=== PATIENT | female | born 1965 | race Two or more races ===

== ENCOUNTER 2020-07-06 11:59 | Emergency (ER) | payer MEDICAID, OTHER ==
[~2020-07-06] VITALS: Ht 160 cm; Wt 72.6 kg
[2020-07-06] MEDS ORDERED: ACETAMINOPHEN 325 MG TAB PO ONE (12:45)
[2020-07-06 13:52] LABS: Basophils # (auto) 0.1 10 ^3/uL (0-0.2); Basophils % (auto) 0.6 % (0.0-2.0); Eosinophils # (auto) 0.2 10 ^3/uL (0-0.8); Eosinophils % (auto) 1.8 % (0.0-7.0); Hematocrit 35.8 % (36.0-46.0); Lymphocytes # (auto) 1.8 10 ^3/uL (0.4-5.4); Lymphocytes % (auto) 21.5 % (10.0-50.0); Mean Corpuscular Hemoglobin 30.5 pg (28.0-32.0); Mean Corpuscular Hgb Conc. 33.4 g/dL (32.0-36.0); Mean Corpuscular Volume 91.3 fL (80.0-100.0); Monocytes # (auto) 0.8 10 ^3/uL (0-1.3); Monocytes % (auto) 9.8 % (0.0-12.0); Neutrophils # (auto) 5.6 10 ^3/uL (1.6-8.6); Neutrophils % (auto) 66.3 % (37.0-80.0); Nucleated Red Blood Cells % 0.1 %; Platelet Count (auto) 279 10^3/uL (140-450); Red Blood Cells 3.92 10^6/uL (4.0-5.20); Red Cell Distribution Width 14.4 % (11.8-14.3); White Blood Cell 8.4 10^3/uL (4.4-10.8)
[2020-07-06 14:15] LABS: Albumin 1.6 g/dL (3.4-5.0); Calcium 8.4 mg/dL (8.5-10.1); Magnesium 2.2 mg/dL (1.6-2.6); Potassium 3.5 mmol/L (3.5-5.1)
[2020-07-06 14:17] LABS: INR 0.99 (0.9-1.15); Partial Thromboplastin Time 31.7 sec (23.0-31.2)
[2020-07-06 14:23] LABS: BUN/Creatinine Ratio 23.4; Bilirubin, Total 0.2 mg/dL (0.2-1.0); Total Protein 7.1 g/dL (6.4-8.2)
[2020-07-06 16:23] VITALS: BP 171/67
== END 2020-07-06 16:34 | disposition short-term general hospital (02) ==
LOC: ER 11:59
DX: I60.8 Other nontraumatic subarachnoid hemorrhage (principal); I61.5 Nontraumatic intracerebral hemorrhage, intraventricular; S09.90XA Unspecified injury of head, initial encounter; S82.831A Other fracture of upper and lower end of right fibula, initial encounter for closed fracture; S53.401A Unspecified sprain of right elbow, initial encounter; E11.9 Type 2 diabetes mellitus without complications; I10 Essential (primary) hypertension; Z87.891 Personal history of nicotine dependence; X58.XXXA Exposure to other specified factors, initial encounter; Y93.89 Activity, other specified; Y92.89 Other specified places as the place of occurrence of the external cause; Y99.8 Other external cause status
CPT/HCPCS: 36415; 70450; 71045; 73060; 73080; 73610; 73630; 80053; 83735; 84484; 85025; 85610; 85730; 93005; 99291

== ENCOUNTER 2021-07-28 17:00 | Inpatient (IN) | payer MEDICAID ==
[~2021-07-28] VITALS: Ht 157.5 cm; Wt 88.3 kg
[2021-07-28] MEDS ORDERED: DEXTROSE (50%) 50ML SYRG IV ONE (17:30)
[2021-07-28 18:42] LABS: Basophils # (auto) 0 10 ^3/uL (0-0.2); Basophils % (auto) 0.6 % (0.0-2.0); Eosinophils # (auto) 0 10 ^3/uL (0-0.8); Eosinophils % (auto) 0.2 % (0.0-7.0); Hematocrit 37.2 % (36.0-46.0); Hemoglobin 12.2 g/dL (12.2-16.2); Lymphocytes # (auto) 0.8 10 ^3/uL (0.4-5.4); Lymphocytes % (auto) 12.9 % (10.0-50.0); Mean Corpuscular Hemoglobin 30.1 pg (28.0-32.0); Mean Corpuscular Hgb Conc. 32.7 g/dL (32.0-36.0); Mean Corpuscular Volume 91.9 fL (80.0-100.0); Monocytes # (auto) 0.2 10 ^3/uL (0-1.3); Monocytes % (auto) 3.2 % (0.0-12.0); Neutrophils # (auto) 5.3 10 ^3/uL (1.6-8.6); Neutrophils % (auto) 83.1 % (37.0-80.0); Red Blood Cells 4.05 10^6/uL (4.0-5.20); White Blood Cell 6.4 10^3/uL (4.4-10.8)
[2021-07-28 18:53] LABS: Albumin 2.1 g/dL (3.4-5.0); Calcium 8.1 mg/dL (8.5-10.1); Potassium 3.9 mmol/L (3.5-5.1)
[2021-07-28 18:57] LABS: BUN/Creatinine Ratio 10.3; Bilirubin, Total 0.2 mg/dL (0.2-1.0)
[2021-07-28 19:05] LABS: Urine Bacteria FEW /hpf (None Seen); Urine Blood 1+ /uL (Negative); Urine Hyaline Cast FEW /lpf (0 - 2); Urine Mucus FEW (None Seen); Urine WBC 5 /hpf (0 - 5)
[2021-07-28] MEDS ORDERED: cloNIDine HCL 0.1 MG TAB PO ONE (19:30)
[2021-07-28] MEDS ORDERED: NITROGLYCERIN 0.4 MG SL TAB SL PRN (21:45)
[2021-07-28] MEDS ORDERED: DEXTROSE (50%) 50ML SYRG IV PRN (21:45)
[2021-07-28] MEDS ORDERED: TEMAZEPAM 15 MG CAP PO PRN (21:45)
[2021-07-28] MEDS ORDERED: MORPHINE SULFATE INJECTION 2 MG/ML SYRG IV PRN (21:45)
[2021-07-28] MEDS ORDERED: cefTRIAXone 1GM/50ML D5W 50 ML IV ONE (21:45)
[2021-07-28] MEDS ORDERED: ATORVASTATIN 20 MG TAB PO ONE (21:45)
[2021-07-28] MEDS ORDERED: DEXTROSE 10% 1,000 ML IV ONE ×3 (22:00→22:15)
[2021-07-28] MEDS: ATORVASTATIN 20 MG TAB PO SCH (22:23)
[2021-07-28 22:50] VITALS: BP 208/74
[2021-07-29] VITALS (7 sets, daily range): BP systolic 144–207; BP diastolic 60–85
[2021-07-29] MEDS: cloNIDine HCL 0.1 MG TAB PO PRN ×2 (00:23→12:21)
[2021-07-29] MEDS: ACCU-CHEK COMFORT CURVE STRIP VI SCH ×5 (00:34→16:11)
[2021-07-29] MEDS: InsuLIN REG 1unit/0.01ml Soln (100units/ml) SC SCH ×6 (03:44→20:21)
[2021-07-29 05:35] LABS: Albumin 1.6 g/dL (3.4-5.0); BUN/Creatinine Ratio 10.8; Calcium 7.9 mg/dL (8.5-10.1); Potassium 3.6 mmol/L (3.5-5.1)
[2021-07-29 05:38] LABS: Bilirubin, Total 0.1 mg/dL (0.2-1.0); Total Protein 5.4 g/dL (6.4-8.2)
[2021-07-29 05:43] LABS: Basophils # (auto) 0.1 10 ^3/uL (0-0.2); Basophils % (auto) 0.8 % (0.0-2.0); Eosinophils # (auto) 0.2 10 ^3/uL (0-0.8); Eosinophils % (auto) 2.5 % (0.0-7.0); Hematocrit 30.1 % (36.0-46.0); Hemoglobin 10.1 g/dL (12.2-16.2); Lymphocytes # (auto) 2.2 10 ^3/uL (0.4-5.4); Mean Corpuscular Hemoglobin 30.7 pg (28.0-32.0); Mean Corpuscular Hgb Conc. 33.5 g/dL (32.0-36.0); Mean Corpuscular Volume 91.6 fL (80.0-100.0); Monocytes # (auto) 0.4 10 ^3/uL (0-1.3); Monocytes % (auto) 7.1 % (0.0-12.0); Neutrophils # (auto) 3.3 10 ^3/uL (1.6-8.6); Neutrophils % (auto) 53.6 % (37.0-80.0); Nucleated Red Blood Cells % 0.1 %; Red Blood Cells 3.29 10^6/uL (4.0-5.20); Red Cell Distribution Width 14.5 % (11.8-14.3); White Blood Cell 6.2 10^3/uL (4.4-10.8)
[2021-07-29] MEDS: cefTRIAXone 1GM/50ML D5W 50 ML IV SCH (09:07)
[2021-07-29] MEDS: ASPirin 81 mg TAB PO SCH (09:08)
[2021-07-29] MEDS: METOPROLOL SUCCINATE XL 50 MG TAB PO SCH (09:09)
[2021-07-29] MEDS: ENOXAPARIN SOD 30 MG/0.3 ML SYRINGE SC SCH (09:10)
[2021-07-29] MEDS ORDERED: amLODIPine BESYLATE 5 MG TAB PO SCH (10:00)
[2021-07-29] MEDS ORDERED: hydrALAZINE HCL 25 MG TAB PO SCH (10:00)
[2021-07-29] MEDS ORDERED: ENOXAPARIN SOD 40 MG/0.4 ML SYRINGE SC SCH (10:00)
[2021-07-29] MEDS ORDERED: LOSARTAN POTASSIUM 50 MG TAB PO SCH (10:00)
[2021-07-29] MEDS ORDERED: INSU1INJ19 SC (15:43)
[2021-07-29] MEDS ORDERED: LOSA-39 PO (15:47)
[2021-07-29] MEDS ORDERED: METO-289 PO (15:47)
[2021-07-29] MEDS ORDERED: ATOR20TA PO (15:47)
[2021-07-29] MEDS ORDERED: GLIP10TA9 PO (15:47)
[2021-07-29] MEDS ORDERED: CLON0.1T PO (15:47)
[2021-07-29] MEDS ORDERED: ASPI81CH49 PO (15:47)
[2021-07-29] MEDS: hydrALAZINE HCL 25 MG TAB PO SCH ×2 (16:27→22:59)
[2021-07-29] MEDS: amLODIPine BESYLATE 5 MG TAB PO SCH (16:27)
[2021-07-29] MEDS: SODIUM BICARBONATE 50ML VIAL 50 ML in SOD CHL 0.45% 1,000 ML IV SCH (18:00)
[2021-07-29] MEDS: ATORVASTATIN 20 MG TAB PO SCH (22:59)
[2021-07-30] MEDS: ACCU-CHEK COMFORT CURVE STRIP VI SCH ×7 (01:39→20:11)
[2021-07-30] MEDS: SODIUM BICARBONATE 50ML VIAL 50 ML in SOD CHL 0.45% 1,000 ML IV SCH ×2 (02:08→13:03)
[2021-07-30] MEDS: InsuLIN REG 1unit/0.01ml Soln (100units/ml) SC SCH ×6 (04:00→20:24)
[2021-07-30 05:07] VITALS: BP 148/66
[2021-07-30] MEDS: hydrALAZINE HCL 25 MG TAB PO SCH ×3 (06:12→22:27)
[2021-07-30] MEDS ORDERED: ADENOSINE 61 MG in GIVE UN-DILUTED 0 ML IV STA (07:51)
[2021-07-30] MEDS: cefTRIAXone 1GM/50ML D5W 50 ML IV SCH (08:12)
[2021-07-30] MEDS: amLODIPine BESYLATE 5 MG TAB PO SCH (08:12)
[2021-07-30] MEDS: METOPROLOL SUCCINATE XL 50 MG TAB PO SCH (08:12)
[2021-07-30] MEDS: ASPirin 81 mg TAB PO SCH (08:12)
[2021-07-30] MEDS: ENOXAPARIN SOD 30 MG/0.3 ML SYRINGE SC SCH (08:12)
[2021-07-30 08:48] VITALS: BP 136/71
[2021-07-30 09:00] VITALS: BP 149/77
[2021-07-30] MEDS: ERGOCALCIFEROL 50,000 UNIT(1.25MG) CAP PO SCH ×2 (11:30→15:29)
[2021-07-30 11:45] LABS: Potassium 3.6 mmol/L (3.5-5.1)
[2021-07-30 11:51] LABS: BUN/Creatinine Ratio 10.2; Calcium 8.1 mg/dL (8.5-10.1)
[2021-07-30 13:00] VITALS: BP 174/82
[2021-07-30] MEDS: cloNIDine HCL 0.1 MG TAB PO PRN ×2 (16:01→20:31)
[2021-07-30 16:55] VITALS: BP 185/70
[2021-07-30 22:00] VITALS: BP 182/62
[2021-07-30] MEDS: ATORVASTATIN 20 MG TAB PO SCH (22:27)
[2021-07-31] MEDS: ACCU-CHEK COMFORT CURVE STRIP VI SCH ×6 (00:24→20:17)
[2021-07-31] MEDS: InsuLIN REG 1unit/0.01ml Soln (100units/ml) SC SCH ×6 (00:25→20:18)
[2021-07-31] MEDS: SODIUM BICARBONATE 50ML VIAL 50 ML in SOD CHL 0.45% 1,000 ML IV SCH ×3 (04:04→20:17)
[2021-07-31 05:00] VITALS: BP 132/57
[2021-07-31 06:03] LABS: Potassium 4.2 mmol/L (3.5-5.1)
[2021-07-31] MEDS: hydrALAZINE HCL 25 MG TAB PO SCH ×3 (06:03→21:59)
[2021-07-31 06:14] LABS: BUN/Creatinine Ratio 12.2; Calcium 7.6 mg/dL (8.5-10.1)
[2021-07-31] MEDS: cefTRIAXone 1GM/50ML D5W 50 ML IV SCH (08:28)
[2021-07-31 09:00] VITALS: BP 110/71
[2021-07-31] MEDS: ASPirin 81 mg TAB PO SCH (09:57)
[2021-07-31] MEDS: amLODIPine BESYLATE 5 MG TAB PO SCH (09:58)
[2021-07-31] MEDS: METOPROLOL SUCCINATE XL 50 MG TAB PO SCH (09:58)
[2021-07-31] MEDS: ENOXAPARIN SOD 30 MG/0.3 ML SYRINGE SC SCH (09:58)
[2021-07-31] MEDS: cloNIDine HCL 0.1 MG TAB PO PRN (11:37)
[2021-07-31 12:38] VITALS: BP 162/71
[2021-07-31 17:00] VITALS: BP 146/69
[2021-07-31 22:00] VITALS: BP 149/74
[2021-07-31] MEDS: ATORVASTATIN 20 MG TAB PO SCH (22:00)
[2021-08-01] MEDS: ACCU-CHEK COMFORT CURVE STRIP VI SCH ×6 (00:07→20:01)
[2021-08-01] MEDS: InsuLIN REG 1unit/0.01ml Soln (100units/ml) SC SCH ×6 (03:58→20:03)
[2021-08-01 04:55] VITALS: BP 155/67
[2021-08-01] MEDS: hydrALAZINE HCL 25 MG TAB PO SCH ×3 (05:47→21:55)
[2021-08-01] MEDS: ACETAMINOPHEN 325 MG TAB PO PRN (06:13)
[2021-08-01 06:23] LABS: Potassium 3.7 mmol/L (3.5-5.1)
[2021-08-01 06:35] LABS: BUN/Creatinine Ratio 11.3
[2021-08-01] MEDS: SODIUM BICARBONATE 50ML VIAL 50 ML in SOD CHL 0.45% 1,000 ML IV SCH ×2 (06:47→17:28)
[2021-08-01 09:00] VITALS: BP 160/69
[2021-08-01] MEDS: amLODIPine BESYLATE 5 MG TAB PO SCH (09:26)
[2021-08-01] MEDS: METOPROLOL SUCCINATE XL 50 MG TAB PO SCH (09:26)
[2021-08-01] MEDS: cefTRIAXone 1GM/50ML D5W 50 ML IV SCH (09:26)
[2021-08-01] MEDS: ASPirin 81 mg TAB PO SCH (09:26)
[2021-08-01] MEDS: ENOXAPARIN SOD 30 MG/0.3 ML SYRINGE SC SCH (09:27)
[2021-08-01 13:00] VITALS: BP 162/81
[2021-08-01 17:00] VITALS: BP 158/69
[2021-08-01] MEDS: ONDANSETRON HCL 4 MG/2 ML VIAL IV PRN (18:08)
[2021-08-01] MEDS: ATORVASTATIN 20 MG TAB PO SCH (21:55)
[2021-08-01 22:00] VITALS: BP 163/74
[2021-08-02] MEDS: InsuLIN REG 1unit/0.01ml Soln (100units/ml) SC SCH ×7 (04:00→23:32)
[2021-08-02] MEDS: ACCU-CHEK COMFORT CURVE STRIP VI SCH ×7 (04:08→23:23)
[2021-08-02] MEDS: SODIUM BICARBONATE 50ML VIAL 50 ML in SOD CHL 0.45% 1,000 ML IV SCH ×2 (04:08→13:56)
[2021-08-02 04:55] VITALS: BP 160/74
[2021-08-02] MEDS: ONDANSETRON HCL 4 MG/2 ML VIAL IV PRN (05:24)
[2021-08-02] MEDS: hydrALAZINE HCL 25 MG TAB PO SCH ×3 (05:48→21:58)
[2021-08-02 06:06] LABS: BUN/Creatinine Ratio 9.8; Calcium 7.9 mg/dL (8.5-10.1); Potassium 3.6 mmol/L (3.5-5.1)
[2021-08-02] MEDS: cefTRIAXone 1GM/50ML D5W 50 ML IV SCH (07:57)
[2021-08-02 08:39] VITALS: BP 162/64
[2021-08-02] MEDS ORDERED: ONDANSETRON HCL 4 MG/2 ML VIAL IV ONE (09:15)
[2021-08-02] MEDS: ASPirin 81 mg TAB PO SCH ×2 (10:00→10:22)
[2021-08-02] MEDS: amLODIPine BESYLATE 5 MG TAB PO SCH (10:22)
[2021-08-02] MEDS: PANTOPRAZOLE 40 MG/10 ML VIAL INJ IV SCH ×2 (10:22→21:58)
[2021-08-02] MEDS: ALPRAZolam 0.5 MG TAB PO SCH ×3 (10:23→21:58)
[2021-08-02] MEDS: ENOXAPARIN SOD 30 MG/0.3 ML SYRINGE SC SCH (10:23)
[2021-08-02] MEDS: METOPROLOL SUCCINATE XL 50 MG TAB PO SCH (10:23)
[2021-08-02 12:29] VITALS: BP 154/70
[2021-08-02 16:47] VITALS: BP 153/60
[2021-08-02] MEDS: ACETAMINOPHEN 325 MG TAB PO PRN (17:34)
[2021-08-02] MEDS: ATORVASTATIN 20 MG TAB PO SCH (21:58)
[2021-08-02 22:00] VITALS: BP 161/74
[2021-08-03] MEDS: ACCU-CHEK COMFORT CURVE STRIP VI SCH ×6 (03:27→23:24)
[2021-08-03] MEDS: InsuLIN REG 1unit/0.01ml Soln (100units/ml) SC SCH ×6 (03:28→23:25)
[2021-08-03] MEDS: SODIUM BICARBONATE 50ML VIAL 50 ML in SOD CHL 0.45% 1,000 ML IV SCH ×2 (04:38→14:00)
[2021-08-03 05:00] VITALS: BP 143/67
[2021-08-03] MEDS: hydrALAZINE HCL 25 MG TAB PO SCH ×3 (06:23→21:40)
[2021-08-03] MEDS: ALPRAZolam 0.5 MG TAB PO SCH (06:23)
[2021-08-03] MEDS: cefTRIAXone 1GM/50ML D5W 50 ML IV SCH (08:58)
[2021-08-03 09:00] VITALS: BP 147/69
[2021-08-03] MEDS: ASPirin 81 mg TAB PO SCH (10:00)
[2021-08-03] MEDS: ENOXAPARIN SOD 30 MG/0.3 ML SYRINGE SC SCH (10:00)
[2021-08-03] MEDS: METOPROLOL SUCCINATE XL 50 MG TAB PO SCH (10:26)
[2021-08-03] MEDS: amLODIPine BESYLATE 5 MG TAB PO SCH (10:26)
[2021-08-03] MEDS: PANTOPRAZOLE 40 MG/10 ML VIAL INJ IV SCH ×2 (10:27→21:39)
[2021-08-03 10:51] LABS: Calcium 7.7 mg/dL (8.5-10.1); Potassium 3.8 mmol/L (3.5-5.1)
[2021-08-03 10:53] LABS: BUN/Creatinine Ratio 10.1
[2021-08-03] MEDS ORDERED: LIDOCAINE VISCOUS 2% 15ML UD ONE (12:25)
[2021-08-03] MEDS ORDERED: diphenhdrAMINE HCL 50 MG/1 ML VL ONE (12:25)
[2021-08-03] MEDS ORDERED: SODIUM CHLORIDE LOCK 10 ML ONE (12:25)
[2021-08-03 12:33] LABS: INR 1.02 (0.9-1.15); Partial Thromboplastin Time 30.9 sec (23.6-33.0)
[2021-08-03] MEDS: fentaNYL CITRATE 100 MCG/2 ML VL ONE ×2 (13:02→13:05)
[2021-08-03] MEDS: MIDAZOLAM HCL 5 MG/ML-1ML VIAL ONE ×2 (13:02→13:05)
[2021-08-03 17:00] VITALS: BP 136/59
[2021-08-03] MEDS: ACETAMINOPHEN 325 MG TAB PO PRN (18:10)
[2021-08-03] MEDS: SUCRALFATE 1 GM/10 ML ORAL SUSP PO SCH ×2 (18:10→21:40)
[2021-08-03] MEDS: ATORVASTATIN 20 MG TAB PO SCH (21:40)
[2021-08-03 22:00] VITALS: BP 145/64
[2021-08-04] MEDS: SODIUM BICARBONATE 50ML VIAL 50 ML in SOD CHL 0.45% 1,000 ML IV SCH ×3 (01:54→17:46)
[2021-08-04] MEDS: InsuLIN REG 1unit/0.01ml Soln (100units/ml) SC SCH ×6 (03:20→23:56)
[2021-08-04] MEDS: ACCU-CHEK COMFORT CURVE STRIP VI SCH ×6 (03:30→23:56)
[2021-08-04 05:00] VITALS: BP 137/70
[2021-08-04 05:40] LABS: Calcium 7.9 mg/dL (8.5-10.1)
[2021-08-04] MEDS: SUCRALFATE 1 GM/10 ML ORAL SUSP PO SCH ×4 (06:05→21:38)
[2021-08-04] MEDS: hydrALAZINE HCL 25 MG TAB PO SCH ×3 (06:05→21:39)
[2021-08-04 09:00] VITALS: BP 133/82
[2021-08-04] MEDS: cefTRIAXone 1GM/50ML D5W 50 ML IV SCH (09:12)
[2021-08-04] MEDS: PANTOPRAZOLE 40 MG/10 ML VIAL INJ IV SCH ×2 (09:13→21:37)
[2021-08-04] MEDS: ASPirin 81 mg TAB PO SCH (09:13)
[2021-08-04] MEDS: METOPROLOL SUCCINATE XL 50 MG TAB PO SCH (09:14)
[2021-08-04] MEDS: amLODIPine BESYLATE 5 MG TAB PO SCH (09:14)
[2021-08-04] MEDS: ENOXAPARIN SOD 30 MG/0.3 ML SYRINGE SC SCH (09:14)
[2021-08-04 12:38] VITALS: BP 127/59
[2021-08-04 17:03] VITALS: BP 132/50
[2021-08-04] MEDS: CALCIUM ACETATE 667 MG CAP PO SCH (17:46)
[2021-08-04] MEDS: ATORVASTATIN 20 MG TAB PO SCH (21:38)
[2021-08-04 21:53] VITALS: BP 136/67
[2021-08-05] MEDS: SODIUM BICARBONATE 50ML VIAL 50 ML in SOD CHL 0.45% 1,000 ML IV SCH ×2 (00:33→15:13)
[2021-08-05] MEDS: ACCU-CHEK COMFORT CURVE STRIP VI SCH ×6 (03:30→23:36)
[2021-08-05] MEDS: InsuLIN REG 1unit/0.01ml Soln (100units/ml) SC SCH ×6 (03:30→23:36)
[2021-08-05 05:00] VITALS: BP 143/71
[2021-08-05] MEDS: hydrALAZINE HCL 25 MG TAB PO SCH ×3 (05:26→21:41)
[2021-08-05 05:45] LABS: BUN/Creatinine Ratio 8.8; Calcium 7.9 mg/dL (8.5-10.1); Potassium 4.1 mmol/L (3.5-5.1)
[2021-08-05] MEDS ORDERED: HYDROcodone-ACET 5/325MG TAB PO ONE (06:00)
[2021-08-05] MEDS: SUCRALFATE 1 GM/10 ML ORAL SUSP PO SCH ×4 (06:56→21:09)
[2021-08-05] MEDS: CALCIUM ACETATE 667 MG CAP PO SCH ×3 (08:40→17:12)
[2021-08-05] MEDS: amLODIPine BESYLATE 5 MG TAB PO SCH (08:41)
[2021-08-05] MEDS: ASPirin 81 mg TAB PO SCH (08:41)
[2021-08-05] MEDS: METOPROLOL SUCCINATE XL 50 MG TAB PO SCH (08:42)
[2021-08-05] MEDS: ENOXAPARIN SOD 30 MG/0.3 ML SYRINGE SC SCH (08:43)
[2021-08-05] MEDS: PANTOPRAZOLE 40 MG/10 ML VIAL INJ IV SCH ×2 (08:48→21:09)
[2021-08-05] MEDS: cefTRIAXone 1GM/50ML D5W 50 ML IV SCH (08:48)
[2021-08-05 09:00] VITALS: BP 152/63
[2021-08-05 13:00] VITALS: BP 136/59
[2021-08-05] MEDS: metroNIDAZOLE 500MG/100ML 100 ML IV SCH (21:08)
[2021-08-05] MEDS: ATORVASTATIN 20 MG TAB PO SCH (21:09)
[2021-08-05 22:25] VITALS: BP 153/69
[2021-08-06] MEDS: SODIUM BICARBONATE 50ML VIAL 50 ML in SOD CHL 0.45% 1,000 ML IV SCH ×2 (01:10→12:45)
[2021-08-06] MEDS: ACETAMINOPHEN 325 MG TAB PO PRN (01:36)
[2021-08-06] MEDS: ACCU-CHEK COMFORT CURVE STRIP VI SCH ×5 (03:35→20:00)
[2021-08-06] MEDS: InsuLIN REG 1unit/0.01ml Soln (100units/ml) SC SCH ×5 (03:35→20:00)
[2021-08-06 04:57] LABS: Urine Bacteria NONE SEEN /hpf (None Seen); Urine Blood TRACE /uL (Negative); Urine Specific Gravity 1.007 (1.001-1.035); Urine WBC 1 /hpf (0 - 5)
[2021-08-06] MEDS: hydrALAZINE HCL 25 MG TAB PO SCH ×3 (05:18→22:23)
[2021-08-06] MEDS: metroNIDAZOLE 500MG/100ML 100 ML IV SCH ×3 (05:19→22:22)
[2021-08-06 05:22] VITALS: BP 149/73
[2021-08-06] MEDS: SUCRALFATE 1 GM/10 ML ORAL SUSP PO SCH ×4 (06:12→22:22)
[2021-08-06 06:53] LABS: Basophils # (auto) 0.1 10 ^3/uL (0-0.2); Eosinophils # (auto) 0.6 10 ^3/uL (0-0.8); Eosinophils % (auto) 7.3 % (0.0-7.0); Hematocrit 32.3 % (36.0-46.0); Hemoglobin 10.1 g/dL (12.2-16.2); Lymphocytes # (auto) 2.8 10 ^3/uL (0.4-5.4); Lymphocytes % (auto) 35.8 % (10.0-50.0); Mean Corpuscular Hemoglobin 31.1 pg (28.0-32.0); Mean Corpuscular Hgb Conc. 31.4 g/dL (32.0-36.0); Mean Corpuscular Volume 99.3 fL (80.0-100.0); Monocytes # (auto) 0.6 10 ^3/uL (0-1.3); Monocytes % (auto) 7.6 % (0.0-12.0); Neutrophils # (auto) 3.7 10 ^3/uL (1.6-8.6); Neutrophils % (auto) 48.3 % (37.0-80.0); Nucleated Red Blood Cells % 0.1 %; Red Blood Cells 3.26 10^6/uL (4.0-5.20); Red Cell Distribution Width 15.4 % (11.8-14.3); White Blood Cell 7.7 10^3/uL (4.4-10.8)
[2021-08-06 07:17] LABS: Albumin 1.8 g/dL (3.4-5.0); Calcium 8.2 mg/dL (8.5-10.1); Potassium 4.3 mmol/L (3.5-5.1)
[2021-08-06 07:23] LABS: INR 1.01 (0.9-1.15); Partial Thromboplastin Time 28.8 sec (23.6-33.0)
[2021-08-06 07:24] LABS: BUN/Creatinine Ratio 7.6; Bilirubin, Total 0.2 mg/dL (0.2-1.0); Total Protein 5.8 g/dL (6.4-8.2)
[2021-08-06 09:00] VITALS: BP 152/77
[2021-08-06] MEDS: cefTRIAXone 1GM/50ML D5W 50 ML IV SCH (09:35)
[2021-08-06] MEDS: PANTOPRAZOLE 40 MG/10 ML VIAL INJ IV SCH ×2 (09:35→22:22)
[2021-08-06] MEDS: CALCIUM ACETATE 667 MG CAP PO SCH ×3 (09:35→16:52)
[2021-08-06] MEDS: ASPirin 81 mg TAB PO SCH (09:35)
[2021-08-06] MEDS: ENOXAPARIN SOD 30 MG/0.3 ML SYRINGE SC SCH (09:36)
[2021-08-06] MEDS: METOPROLOL SUCCINATE XL 50 MG TAB PO SCH (09:36)
[2021-08-06] MEDS: amLODIPine BESYLATE 5 MG TAB PO SCH (09:36)
[2021-08-06] MEDS: HYDROmorphone HCL 2 MG/ML VL IV PRN ×2 (10:30→13:00)
[2021-08-06] MEDS: ERGOCALCIFEROL 50,000 UNIT(1.25MG) CAP PO SCH (11:30)
[2021-08-06 12:46] VITALS: BP 148/81
[2021-08-06] MEDS ORDERED: BUPIVACAINE W/ EPINEPH 0.25% INJ 50ML MDV ONE (12:59)
[2021-08-06] MEDS: ALBUMIN 25% 50 ML IV SCH ×2 (14:30→23:02)
[2021-08-06] MEDS ORDERED: FUROSEMIDE 40 MG/4 ML VIAL IV ONE (16:45)
[2021-08-06 17:00] VITALS: BP 136/63
[2021-08-06 22:15] VITALS: BP 140/49
[2021-08-06] MEDS: ATORVASTATIN 20 MG TAB PO SCH (22:22)
[2021-08-07] MEDS: ACCU-CHEK COMFORT CURVE STRIP VI SCH ×7 (04:00→23:36)
[2021-08-07] MEDS: InsuLIN REG 1unit/0.01ml Soln (100units/ml) SC SCH ×7 (04:00→23:36)
[2021-08-07] MEDS ORDERED: FUROSEMIDE 40 MG/4 ML VIAL IV ONE (04:00)
[2021-08-07 05:00] VITALS: BP 150/54
[2021-08-07] MEDS: metroNIDAZOLE 500MG/100ML 100 ML IV SCH ×3 (06:15→21:24)
[2021-08-07] MEDS: hydrALAZINE HCL 25 MG TAB PO SCH ×3 (06:16→21:30)
[2021-08-07] MEDS: ALBUMIN 25% 50 ML IV SCH (06:30)
[2021-08-07] MEDS: SUCRALFATE 1 GM/10 ML ORAL SUSP PO SCH ×4 (07:27→21:24)
[2021-08-07] MEDS: CALCIUM ACETATE 667 MG CAP PO SCH ×3 (08:00→18:00)
[2021-08-07] MEDS: HYDROmorphone HCL 2 MG/ML VL IV PRN ×3 (08:15→16:08)
[2021-08-07] MEDS: ENOXAPARIN SOD 30 MG/0.3 ML SYRINGE SC SCH (08:51)
[2021-08-07] MEDS: ASPirin 81 mg TAB PO SCH (08:51)
[2021-08-07] MEDS: cefTRIAXone 1GM/50ML D5W 50 ML IV SCH (08:51)
[2021-08-07] MEDS: PANTOPRAZOLE 40 MG/10 ML VIAL INJ IV SCH ×2 (08:51→21:24)
[2021-08-07 09:50] VITALS: BP 174/66
[2021-08-07] MEDS: METOPROLOL SUCCINATE XL 50 MG TAB PO SCH (10:00)
[2021-08-07] MEDS: amLODIPine BESYLATE 5 MG TAB PO SCH (10:00)
[2021-08-07 11:27] LABS: Albumin 2.6 g/dL (3.4-5.0); BUN/Creatinine Ratio 7.2; Calcium 8.5 mg/dL (8.5-10.1); Potassium 3.9 mmol/L (3.5-5.1)
[2021-08-07 11:41] LABS: Bilirubin, Total 0.2 mg/dL (0.2-1.0); Total Protein 6.1 g/dL (6.4-8.2)
[2021-08-07 12:52] VITALS: BP 168/66
[2021-08-07] MEDS ORDERED: ceFAZolin 1GM/50ML 100 ML IV ONE (12:54)
[2021-08-07] MEDS ORDERED: BUPIVACAINE 0.25% INJ 50ML VIAL ONE (13:37)
[2021-08-07] MEDS ORDERED: MIDAZOLAM HCL 2MG/2ML 2ml VIAL (1mg/ml) ONE (14:03)
[2021-08-07] MEDS ORDERED: fentaNYL CITRATE 5 ML ONE (14:03)
[2021-08-07] MEDS ORDERED: ROCURONIUM 10MG/ML 10ML VIAL IV ONE (14:22)
[2021-08-07] MEDS ORDERED: HYDROmorphone HCL 2 MG/ML VL IV PRN (15:30)
[2021-08-07] MEDS ORDERED: ONDANSETRON HCL 4 MG/2 ML VIAL IV PRN (15:30)
[2021-08-07] MEDS ORDERED: PROPOFOL 10 MG/ML 20 ML IV ONE (15:45)
[2021-08-07] MEDS ORDERED: ONDANSETRON HCL 4 MG/2 ML VIAL ONE (15:45)
[2021-08-07 16:55] VITALS: BP 151/73
[2021-08-07] MEDS: ATORVASTATIN 20 MG TAB PO SCH (21:25)
[2021-08-07 21:55] VITALS: BP 140/68
[2021-08-08] MEDS: InsuLIN REG 1unit/0.01ml Soln (100units/ml) SC SCH ×5 (03:45→20:00)
[2021-08-08] MEDS: ACCU-CHEK COMFORT CURVE STRIP VI SCH ×5 (03:46→21:13)
[2021-08-08] MEDS: HYDROmorphone HCL 2 MG/ML VL IV PRN (03:57)
[2021-08-08 05:00] VITALS: BP 130/68
[2021-08-08] MEDS: metroNIDAZOLE 500MG/100ML 100 ML IV SCH ×3 (05:18→21:40)
[2021-08-08] MEDS: hydrALAZINE HCL 25 MG TAB PO SCH ×3 (05:19→21:43)
[2021-08-08] MEDS: SUCRALFATE 1 GM/10 ML ORAL SUSP PO SCH ×4 (06:11→21:41)
[2021-08-08 07:19] LABS: Potassium 3.7 mmol/L (3.5-5.1)
[2021-08-08 07:23] LABS: BUN/Creatinine Ratio 7.5; Calcium 8.5 mg/dL (8.5-10.1)
[2021-08-08 08:48] VITALS: BP 166/62
[2021-08-08 08:54] LABS: Basophils # (auto) 0.1 10 ^3/uL (0-0.2); Basophils % (auto) 1.1 % (0.0-2.0); Eosinophils # (auto) 0.2 10 ^3/uL (0-0.8); Eosinophils % (auto) 1.9 % (0.0-7.0); Hematocrit 29.6 % (36.0-46.0); Hemoglobin 9.4 g/dL (12.2-16.2); Lymphocytes # (auto) 2.3 10 ^3/uL (0.4-5.4); Lymphocytes % (auto) 25.8 % (10.0-50.0); Mean Corpuscular Hemoglobin 29.9 pg (28.0-32.0); Mean Corpuscular Hgb Conc. 31.6 g/dL (32.0-36.0); Mean Corpuscular Volume 94.4 fL (80.0-100.0); Monocytes # (auto) 0.8 10 ^3/uL (0-1.3); Monocytes % (auto) 8.8 % (0.0-12.0); Neutrophils # (auto) 5.5 10 ^3/uL (1.6-8.6); Neutrophils % (auto) 62.4 % (37.0-80.0); Nucleated Red Blood Cells % 0.1 %; Red Blood Cells 3.14 10^6/uL (4.0-5.20); Red Cell Distribution Width 14.8 % (11.8-14.3); White Blood Cell 8.8 10^3/uL (4.4-10.8)
[2021-08-08] MEDS: PANTOPRAZOLE 40 MG/10 ML VIAL INJ IV SCH ×2 (09:15→21:40)
[2021-08-08] MEDS: cefTRIAXone 1GM/50ML D5W 50 ML IV SCH (09:16)
[2021-08-08] MEDS: METOPROLOL SUCCINATE XL 50 MG TAB PO SCH (09:17)
[2021-08-08] MEDS: amLODIPine BESYLATE 5 MG TAB PO SCH (09:17)
[2021-08-08] MEDS: ASPirin 81 mg TAB PO SCH (09:17)
[2021-08-08] MEDS: CALCIUM ACETATE 667 MG CAP PO SCH ×3 (09:36→16:42)
[2021-08-08] MEDS: ENOXAPARIN SOD 30 MG/0.3 ML SYRINGE SC SCH (09:37)
[2021-08-08] MEDS: LACTATED RINGER'S 1,000 ML IV SCH ×2 (10:53→21:14)
[2021-08-08 13:00] VITALS: BP 142/69
[2021-08-08 14:36] LABS: Albumin 2.2 g/dL (3.4-5.0); BUN/Creatinine Ratio 7.1; Bilirubin, Total 0.1 mg/dL (0.2-1.0); Calcium 7.9 mg/dL (8.5-10.1); Potassium 3.8 mmol/L (3.5-5.1); Total Protein 5.7 g/dL (6.4-8.2)
[2021-08-08] MEDS: ACETAMINOPHEN 325 MG TAB PO PRN (16:29)
[2021-08-08 16:50] VITALS: BP 150/62
[2021-08-08] MEDS: ATORVASTATIN 20 MG TAB PO SCH (21:41)
[2021-08-08 23:05] VITALS: BP 141/53
[2021-08-09] MEDS: ACCU-CHEK COMFORT CURVE STRIP VI SCH ×7 (01:08→23:36)
[2021-08-09] MEDS: InsuLIN REG 1unit/0.01ml Soln (100units/ml) SC SCH ×7 (03:48→23:37)
[2021-08-09] MEDS: LACTATED RINGER'S 1,000 ML IV SCH ×2 (04:46→16:31)
[2021-08-09 05:13] VITALS: BP 165/65
[2021-08-09 05:25] LABS: BUN/Creatinine Ratio 6.7
[2021-08-09] MEDS: metroNIDAZOLE 500MG/100ML 100 ML IV SCH ×3 (05:32→21:37)
[2021-08-09] MEDS: hydrALAZINE HCL 25 MG TAB PO SCH ×3 (05:42→21:56)
[2021-08-09] MEDS: SUCRALFATE 1 GM/10 ML ORAL SUSP PO SCH ×4 (06:51→21:38)
[2021-08-09] MEDS: CALCIUM ACETATE 667 MG CAP PO SCH ×3 (08:28→18:51)
[2021-08-09] MEDS: HYDROmorphone HCL 2 MG/ML VL IV PRN (08:29)
[2021-08-09] MEDS: ONDANSETRON HCL 4 MG/2 ML VIAL IV PRN (08:29)
[2021-08-09] MEDS: cefTRIAXone 1GM/50ML D5W 50 ML IV SCH (08:30)
[2021-08-09 08:40] VITALS: BP 135/51
[2021-08-09] MEDS: ASPirin 81 mg TAB PO SCH (12:26)
[2021-08-09] MEDS: METOPROLOL SUCCINATE XL 50 MG TAB PO SCH (12:28)
[2021-08-09] MEDS: amLODIPine BESYLATE 5 MG TAB PO SCH (12:28)
[2021-08-09] MEDS: PANTOPRAZOLE 40 MG/10 ML VIAL INJ IV SCH ×2 (12:29→21:38)
[2021-08-09] MEDS: ENOXAPARIN SOD 30 MG/0.3 ML SYRINGE SC SCH (12:30)
[2021-08-09 13:00] VITALS: BP 130/56
[2021-08-09 16:50] VITALS: BP 139/68
[2021-08-09] MEDS: ATORVASTATIN 20 MG TAB PO SCH (21:38)
[2021-08-10] MEDS: LACTATED RINGER'S 1,000 ML IV SCH (00:52)
[2021-08-10] MEDS: ACETAMINOPHEN 325 MG TAB PO PRN (03:48)
[2021-08-10] MEDS: ACCU-CHEK COMFORT CURVE STRIP VI SCH ×2 (03:48→08:00)
[2021-08-10] MEDS: InsuLIN REG 1unit/0.01ml Soln (100units/ml) SC SCH ×2 (03:49→08:00)
[2021-08-10 05:00] VITALS: BP 145/61
[2021-08-10] MEDS: metroNIDAZOLE 500MG/100ML 100 ML IV SCH (06:08)
[2021-08-10] MEDS: hydrALAZINE HCL 25 MG TAB PO SCH (06:09)
[2021-08-10] MEDS: HYDROmorphone HCL 2 MG/ML VL IV PRN (06:10)
[2021-08-10 06:12] LABS: Calcium 7.8 mg/dL (8.5-10.1); Potassium 3.6 mmol/L (3.5-5.1)
[2021-08-10 06:14] LABS: BUN/Creatinine Ratio 7.4
[2021-08-10] MEDS: SUCRALFATE 1 GM/10 ML ORAL SUSP PO SCH (06:25)
[2021-08-10 08:00] VITALS: BP 148/60
[2021-08-10] MEDS: CALCIUM ACETATE 667 MG CAP PO SCH (08:31)
[2021-08-10] MEDS: cefTRIAXone 1GM/50ML D5W 50 ML IV SCH (08:32)
[2021-08-10] MEDS: ASPirin 81 mg TAB PO SCH (08:33)
[2021-08-10] MEDS: PANTOPRAZOLE 40 MG/10 ML VIAL INJ IV SCH (08:33)
[2021-08-10] MEDS: amLODIPine BESYLATE 5 MG TAB PO SCH (08:34)
[2021-08-10] MEDS: METOPROLOL SUCCINATE XL 50 MG TAB PO SCH (08:35)
[2021-08-10] MEDS ORDERED: SUCR1TAB22 PO (08:51)
[2021-08-10] MEDS ORDERED: LEVO500T31 PO (08:51)
[2021-08-10] MEDS ORDERED: CALC667C5 PO (08:51)
[2021-08-10] MEDS ORDERED: PANT40T PO (08:51)
[2021-08-10] MEDS ORDERED: METR500T PO (08:51)
[2021-08-10] MEDS ORDERED: HYDR2TAB58 PO (08:51)
[2021-08-10 09:00] VITALS: BP 148/60
[2021-08-10 10:26] VITALS: BP 148/60
== END 2021-08-10 12:02 | disposition home health service (06) | DRG 710 ==
LOC: ER 17:00 → TELE 21:40 → TELE-CENTR 23:50
PROVIDERS: ADMIT Nurse Practitioner; ATTEND Family Medicine
PROC: 0DB98ZX Excision of Duodenum, Via Natural or Artificial Opening Endoscopic, Diagnostic (ICD-10-PCS; 2021-08-03)
PROC: 0DB68ZX Excision of Stomach, Via Natural or Artificial Opening Endoscopic, Diagnostic (ICD-10-PCS; 2021-08-03)
PROC: 0W9G4ZZ Drainage of Peritoneal Cavity, Percutaneous Endoscopic Approach (ICD-10-PCS; 2021-08-07)
PROC: 0FT44ZZ Resection of Gallbladder, Percutaneous Endoscopic Approach (ICD-10-PCS; principal; 2021-08-07 14:14)
DX: A41.9 Sepsis, unspecified organism (principal); N17.0 Acute kidney failure with tubular necrosis; I21.4 Non-ST elevation (NSTEMI) myocardial infarction; G93.41 Metabolic encephalopathy; K65.1 Peritoneal abscess; K22.10 Ulcer of esophagus without bleeding; I13.0 Hypertensive heart and chronic kidney disease with heart failure and stage 1 through stage 4 chronic kidney disease, or unspecified chronic kidney disease; I50.32 Chronic diastolic (congestive) heart failure; K80.00 Calculus of gallbladder with acute cholecystitis without obstruction; E11.649 Type 2 diabetes mellitus with hypoglycemia without coma; N18.9 Chronic kidney disease, unspecified; N39.0 Urinary tract infection, site not specified; D63.1 Anemia in chronic kidney disease; Z20.822 Contact with and (suspected) exposure to COVID-19; E11.22 Type 2 diabetes mellitus with diabetic chronic kidney disease; E11.40 Type 2 diabetes mellitus with diabetic neuropathy, unspecified; E11.65 Type 2 diabetes mellitus with hyperglycemia; E55.9 Vitamin D deficiency, unspecified; E66.9 Obesity, unspecified; E78.00 Pure hypercholesterolemia, unspecified; E78.5 Hyperlipidemia, unspecified; E88.09 Other disorders of plasma-protein metabolism, not elsewhere classified; K29.70 Gastritis, unspecified, without bleeding; I25.10 Atherosclerotic heart disease of native coronary artery without angina pectoris; K29.90 Gastroduodenitis, unspecified, without bleeding; K44.9 Diaphragmatic hernia without obstruction or gangrene; K52.9 Noninfective gastroenteritis and colitis, unspecified; K74.60 Unspecified cirrhosis of liver; N04.9 Nephrotic syndrome with unspecified morphologic changes; R18.8 Other ascites; Z79.4 Long term (current) use of insulin; Z82.49 Family history of ischemic heart disease and other diseases of the circulatory system; Z83.3 Family history of diabetes mellitus; Z86.73 Personal history of transient ischemic attack (TIA), and cerebral infarction without residual deficits; Z87.891 Personal history of nicotine dependence; Z98.51 Tubal ligation status
CPT/HCPCS: 36415; 71045; 74176; 76705; 76775; 78226; 78452; 80048; 80053; 81001; 82306; 82570; 82962; 83036; 83690; 83880; 83970; 84100; 84156; 84300; 84484; 85025; 85610; 85730; 86038; 86160; 86850; 86900; 86901; 87040; 87086; 93005; 93017; 93306; 96365; 96375; 97110; 97116; 97163; 97530; C9113; G0378; J0153; J0690; J0696; J1815; J2250; J2405; J2704; J3490

== ENCOUNTER 2022-03-11 10:30 | Inpatient (IN) | payer MEDICARE, MEDICAID ==
[~2022-03-11] VITALS: Ht 160 cm; Wt 80.1 kg
[~2022-03-11 10:30] MED LIST: ASPI81CH49 PO; ATOR20TA PO; CALC667C5 PO; CLON0.1T PO; GLIP10TA9 PO; HYDR2TAB58 PO; INSU1INJ19 SC; LEVO500T31 PO; LOSA-39 PO; METO-289 PO; METR500T PO; PANT40T PO; SUCR1TAB22 PO
[2022-03-11 11:03] VITALS: BP 226/91
[2022-03-11] MEDS ORDERED: ONDANSETRON HCL 4 MG/2 ML VIAL IV ONE (11:15)
[2022-03-11] MEDS ORDERED: MORPHINE SULFATE 4 MG/ML SYR/VIAL IV ONE (11:15)
[2022-03-11] MEDS ORDERED: cloNIDine HCL 0.1 MG TAB PO ONE (11:15)
[2022-03-11 11:37] LABS: Basophils # (auto) 0 10 ^3/uL (0-0.2); Basophils % (auto) 0.9 % (0.0-2.0); Eosinophils # (auto) 0.2 10 ^3/uL (0-0.8); Eosinophils % (auto) 4.3 % (0.0-7.0); Hematocrit 40.4 % (36.0-46.0); Hemoglobin 13.3 g/dL (12.2-16.2); Lymphocytes # (auto) 1.4 10 ^3/uL (0.4-5.4); Lymphocytes % (auto) 25.2 % (10.0-50.0); Mean Corpuscular Hemoglobin 30.4 pg (28.0-32.0); Mean Corpuscular Volume 92.1 fL (80.0-100.0); Monocytes # (auto) 0.4 10 ^3/uL (0-1.3); Monocytes % (auto) 6.6 % (0.0-12.0); Neutrophils # (auto) 3.5 10 ^3/uL (1.6-8.6); Red Blood Cells 4.39 10^6/uL (4.0-5.20); Red Cell Distribution Width 15.9 % (11.8-14.3); White Blood Cell 5.6 10^3/uL (4.4-10.8)
[2022-03-11 11:39] LABS: Urine Bacteria NONE SEEN /hpf (None Seen); Urine Blood TRACE /uL (Negative); Urine Hyaline Cast FEW /lpf (0 - 2); Urine Specific Gravity 1.013 (1.001-1.035); Urine WBC 3 /hpf (0 - 5)
[2022-03-11 11:52] LABS: Albumin 3.1 g/dL (3.4-5.0); Calcium 8.1 mg/dL (8.5-10.1); Potassium 4.4 mmol/L (3.5-5.1)
[2022-03-11 11:55] LABS: BUN/Creatinine Ratio 7.4; Bilirubin, Total 0.5 mg/dL (0.2-1.0); Total Protein 7.3 g/dL (6.4-8.2)
[2022-03-11] MEDS ORDERED: ONDANSETRON HCL 4 MG/2 ML VIAL IV PRN (13:30)
[2022-03-11] MEDS ORDERED: DOCUSATE SOD 100 MG CAP PO PRN (13:30)
[2022-03-11] MEDS ORDERED: MORPHINE SULFATE INJ 2 MG/ml SYRG IV PRN (13:30)
[2022-03-11] MEDS ORDERED: CALCIUM ACETATE 667 MG CAP PO SCH (14:00)
[2022-03-11] MEDS ORDERED: SUCRALFATE 1 GM TAB PO SCH (18:00)
[2022-03-11] MEDS ORDERED: HEPARIN SODIUM (PORCINE) 5000 UNITS/ML 1ML VIAL SC SCH (22:00)
[2022-03-11] MEDS ORDERED: PANTOPRAZOLE 40 MG TAB PO SCH (22:00)
[2022-03-11] MEDS ORDERED: cloNIDine HCL 0.1 MG TAB PO SCH (22:00)
[2022-03-12] MEDS ORDERED: ASPirin 81 mg TAB PO SCH (10:00)
[2022-03-12] MEDS ORDERED: ATORVASTATIN 20 MG TAB PO SCH (10:00)
[2022-03-12] MEDS ORDERED: METOPROLOL SUCCINATE XL 50 MG TAB PO SCH (10:00)
[2022-03-12] MEDS ORDERED: LOSARTAN POTASSIUM 50 MG TAB PO SCH (10:00)
== END 2022-03-12 00:59 | disposition left against medical advice (07) | DRG 693 ==
LOC: ER 10:30 → OVERFLOW 13:30
PROVIDERS: ADMIT Nurse Practitioner Family; ATTEND Nurse Practitioner Family
DX: N20.0 Calculus of kidney (principal); N18.6 End stage renal disease; I12.0 Hypertensive chronic kidney disease with stage 5 chronic kidney disease or end stage renal disease; I16.1 Hypertensive emergency; Z53.29 Procedure and treatment not carried out because of patient's decision for other reasons; E03.9 Hypothyroidism, unspecified; R74.01 Elevation of levels of liver transaminase levels; K74.60 Unspecified cirrhosis of liver; E11.22 Type 2 diabetes mellitus with diabetic chronic kidney disease; E78.5 Hyperlipidemia, unspecified; Z82.49 Family history of ischemic heart disease and other diseases of the circulatory system; Z83.3 Family history of diabetes mellitus; Z87.891 Personal history of nicotine dependence; Z90.49 Acquired absence of other specified parts of digestive tract; Z99.2 Dependence on renal dialysis
CPT/HCPCS: 36415; 74176; 76705; 80053; 81001; 83690; 85025; G0378

== ENCOUNTER 2022-04-22 10:39 | Inpatient (IN) | payer MEDICARE, MEDICAID ==
[~2022-04-22] VITALS: Ht 157.5 cm; Wt 66.0 kg
[2022-04-22 11:20] LABS: Basophils # (auto) 0.1 10 ^3/uL (0-0.2); Basophils % (auto) 0.5 % (0.0-2.0); Eosinophils # (auto) 0.1 10 ^3/uL (0-0.8); Eosinophils % (auto) 0.7 % (0.0-7.0); Hematocrit 30.3 % (36.0-46.0); Hemoglobin 9.6 g/dL (12.2-16.2); Lymphocytes # (auto) 1.1 10 ^3/uL (0.4-5.4); Lymphocytes % (auto) 9.4 % (10.0-50.0); Mean Corpuscular Hemoglobin 30.9 pg (28.0-32.0); Mean Corpuscular Hgb Conc. 31.7 g/dL (32.0-36.0); Mean Corpuscular Volume 97.7 fL (80.0-100.0); Monocytes # (auto) 0.7 10 ^3/uL (0-1.3); Monocytes % (auto) 5.7 % (0.0-12.0); Neutrophils # (auto) 9.8 10 ^3/uL (1.6-8.6); Neutrophils % (auto) 83.7 % (37.0-80.0); Nucleated Red Blood Cells % 0.1 %; Red Cell Distribution Width 16.2 % (11.8-14.3); White Blood Cell 11.7 10^3/uL (4.4-10.8)
[2022-04-22] MEDS ORDERED: FUROSEMIDE 40 MG/4 ML VIAL IV ONE (11:30)
[2022-04-22 11:36] LABS: Albumin 2.8 g/dL (3.4-5.0); Calcium 8.5 mg/dL (8.5-10.1); Potassium 4.5 mmol/L (3.5-5.1)
[2022-04-22 11:41] LABS: BUN/Creatinine Ratio 7.7; Bilirubin, Total 0.8 mg/dL (0.2-1.0); Total Protein 7.3 g/dL (6.4-8.2)
[2022-04-22] MEDS ORDERED: AZITHROMYCIN 500MG/ 250ML 250 ML IV ONE (12:30)
[2022-04-22] MEDS ORDERED: cefTRIAXone 1GM/50ML D5W 50 ML IV ONE (12:30)
[2022-04-22] MEDS ORDERED: PANTOPRAZOLE 40 MG TAB PO ONE (12:30)
[2022-04-22] MEDS: FUROSEMIDE 100 MG/10ML VIAL IV ONE ×2 (12:43→14:00)
[2022-04-22] MEDS ORDERED: methylPREDNISolone SOD SUCC 125 MG/2 ML VL IV ONE (12:45)
[2022-04-22] MEDS ORDERED: ALBUTEROL MEDNEB 2.5 mg/3ml NEB NEB PRN (12:45)
[2022-04-22] MEDS ORDERED: DEXTROSE (50%) 50ML SYRG IV PRN (14:15)
[2022-04-22] MEDS: CALCIUM ACETATE 667 MG CAP PO SCH ×2 (14:31→21:59)
[2022-04-22] MEDS ORDERED: ONDANSETRON HCL 4 MG/2 ML VIAL IV ONE (15:00)
[2022-04-22 17:14] LABS: Albumin 2.9 g/dL (3.4-5.0); Calcium 8.2 mg/dL (8.5-10.1); Potassium 4.7 mmol/L (3.5-5.1)
[2022-04-22 17:16] LABS: Cholesterol 175 mg/dL (< 200); HDL Cholesterol 37 mg/dL (40-59); LDL Cholesterol 107 mg/dL (< 100); Triglycerides 177 mg/dL (< 150)
[2022-04-22 17:18] VITALS: BP 176/47
[2022-04-22 17:18] LABS: BUN/Creatinine Ratio 7.7; Bilirubin, Total 0.7 mg/dL (0.2-1.0); Total Protein 6.5 g/dL (6.4-8.2)
[2022-04-22] MEDS: InsuLIN REG 1unit/0.01ml Soln (100units/ml) SC SCH ×2 (17:38→22:02)
[2022-04-22] MEDS: ACCU-CHEK COMFORT CURVE STRIP VI SCH ×2 (17:39→22:01)
[2022-04-22] MEDS: hydrALAZINE HCL 20 MG/ML VL IV PRN (18:20)
[2022-04-22] MEDS ORDERED: cloNIDine HCL 0.1 MG TAB PO PRN (20:30)
[2022-04-22] MEDS: methylPREDNISolone SOD SUCC 40 MG/ML VL IV SCH (21:58)
[2022-04-22] MEDS: HEPARIN SODIUM (PORCINE) 5000 UNITS/ML 1ML VIAL SC SCH (21:59)
[2022-04-22] MEDS: cloNIDine HCL 0.1 MG TAB PO SCH (22:00)
[2022-04-23 00:34] VITALS: BP_SYST 155; BP_SYST 82; BP_DIAS 50; BP_DIAS 82
[2022-04-23 02:02] LABS: Urine Bacteria NONE SEEN /hpf (None Seen); Urine Blood 2+ /uL (Negative); Urine Specific Gravity 1.013 (1.001-1.035); Urine WBC 4 /hpf (0 - 5)
[2022-04-23] MEDS: guaiFENesin-DM 100/10mg/5ml SYR PO PRN ×3 (02:19→19:35)
[2022-04-23 05:02] VITALS: BP 165/68
[2022-04-23] MEDS: CALCIUM ACETATE 667 MG CAP PO SCH ×3 (06:10→21:41)
[2022-04-23] MEDS: ACCU-CHEK COMFORT CURVE STRIP VI SCH ×7 (06:20→22:03)
[2022-04-23] MEDS: InsuLIN REG 1unit/0.01ml Soln (100units/ml) SC SCH ×3 (06:21→17:45)
[2022-04-23 06:30] LABS: Basophils # (auto) 0 10 ^3/uL (0-0.2); Basophils % (auto) 0.1 % (0.0-2.0); Eosinophils # (auto) 0 10 ^3/uL (0-0.8); Hematocrit 26.5 % (36.0-46.0); Hemoglobin 8.9 g/dL (12.2-16.2); Lymphocytes # (auto) 0.5 10 ^3/uL (0.4-5.4); Mean Corpuscular Hemoglobin 32.3 pg (28.0-32.0); Mean Corpuscular Hgb Conc. 33.4 g/dL (32.0-36.0); Mean Corpuscular Volume 96.8 fL (80.0-100.0); Monocytes # (auto) 0.1 10 ^3/uL (0-1.3); Monocytes % (auto) 0.6 % (0.0-12.0); Neutrophils # (auto) 8.4 10 ^3/uL (1.6-8.6); Neutrophils % (auto) 93.3 % (37.0-80.0); Red Blood Cells 2.74 10^6/uL (4.0-5.20); Red Cell Distribution Width 15.3 % (11.8-14.3)
[2022-04-23] MEDS ORDERED: SODIUM CHL 0.9% 1000 ML BAG XX ONE (07:00)
[2022-04-23 08:00] VITALS: BP 178/75
[2022-04-23] MEDS: cefTRIAXone 1GM/50ML D5W 50 ML IV SCH (09:03)
[2022-04-23] MEDS: LOSARTAN POTASSIUM 50 MG TAB PO SCH (09:04)
[2022-04-23] MEDS: METOPROLOL SUCCINATE XL 50 MG TAB PO SCH (09:08)
[2022-04-23] MEDS ORDERED: PANTOPRAZOLE 40 MG TAB PO SCH (10:00)
[2022-04-23] MEDS ORDERED: AZITHROMYCIN 500MG/ 250ML 250 ML IV SCH (10:00)
[2022-04-23] MEDS ORDERED: DEXTROSE (50%) 50ML SYRG IV PRN (10:15)
[2022-04-23] MEDS ORDERED: PANTOPRAZOLE 40 MG/10 ML VIAL INJ IV ONE (10:15)
[2022-04-23] MEDS: methylPREDNISolone SOD SUCC 40 MG/ML VL IV SCH (10:25)
[2022-04-23] MEDS: cloNIDine HCL 0.1 MG TAB PO SCH ×2 (10:34→21:45)
[2022-04-23] MEDS: ATORVASTATIN 20 MG TAB PO SCH (10:34)
[2022-04-23] MEDS: HEPARIN SODIUM (PORCINE) 5000 UNITS/ML 1ML VIAL SC SCH ×2 (10:48→21:43)
[2022-04-23 12:00] VITALS: BP 159/69
[2022-04-23 13:43] LABS: Hepatitis C Antibody Negative (Negative)
[2022-04-23 16:00] VITALS: BP 151/61
[2022-04-23] MEDS ORDERED: EPOETIN ALFA-EPBX 10,000 UNIT/1ML VIAL SC ONE (21:00)
[2022-04-23] MEDS ORDERED: InsuLIN REG 1unit/0.01ml Soln (100units/ml) SC SCH (22:00)
[2022-04-23 22:26] VITALS: BP 106/58
[2022-04-24 04:34] VITALS: BP 165/50
[2022-04-24] MEDS: ACCU-CHEK COMFORT CURVE STRIP VI SCH ×4 (05:55→12:31)
[2022-04-24] MEDS: hydrALAZINE HCL 20 MG/ML VL IV PRN (05:55)
[2022-04-24] MEDS: guaiFENesin-DM 100/10mg/5ml SYR PO PRN (05:55)
[2022-04-24] MEDS: CALCIUM ACETATE 667 MG CAP PO SCH (05:55)
[2022-04-24] MEDS: InsuLIN REG 1unit/0.01ml Soln (100units/ml) SC SCH ×2 (05:56→11:34)
[2022-04-24 06:54] LABS: Basophils # (auto) 0 10 ^3/uL (0-0.2); Eosinophils # (auto) 0 10 ^3/uL (0-0.8); Eosinophils % (auto) 0.3 % (0.0-7.0); Hemoglobin 8.4 g/dL (12.2-16.2); Mean Corpuscular Volume 96.3 fL (80.0-100.0); Monocytes # (auto) 0.7 10 ^3/uL (0-1.3)
[2022-04-24 06:59] LABS: Basophils % (auto) 0.2 % (0.0-2.0); Hematocrit 26.2 % (36.0-46.0); Lymphocytes # (auto) 2.2 10 ^3/uL (0.4-5.4); Lymphocytes % (auto) 25.1 % (10.0-50.0); Mean Corpuscular Hemoglobin 31.1 pg (28.0-32.0); Mean Corpuscular Hgb Conc. 32.3 g/dL (32.0-36.0); Neutrophils # (auto) 5.7 10 ^3/uL (1.6-8.6); Neutrophils % (auto) 66.4 % (37.0-80.0); Nucleated Red Blood Cells % 0.1 %; Red Blood Cells 2.72 10^6/uL (4.0-5.20); Red Cell Distribution Width 15.3 % (11.8-14.3); White Blood Cell 8.6 10^3/uL (4.4-10.8)
[2022-04-24 07:15] LABS: BUN/Creatinine Ratio 7.5; Calcium 8.1 mg/dL (8.5-10.1); Potassium 3.7 mmol/L (3.5-5.1)
[2022-04-24 08:00] VITALS: BP 142/61
[2022-04-24] MEDS: cefTRIAXone 1GM/50ML D5W 50 ML IV SCH (09:29)
[2022-04-24] MEDS ORDERED: AZITHROMYCIN 250 MG TAB PO SCH (10:00)
[2022-04-24] MEDS ORDERED: PANTOPRAZOLE 40 MG/10 ML VIAL INJ IV SCH (10:00)
[2022-04-24] MEDS ORDERED: ASPirin 81 mg TAB PO SCH (10:00)
[2022-04-24] MEDS: METOPROLOL SUCCINATE XL 50 MG TAB PO SCH (10:03)
[2022-04-24] MEDS: ATORVASTATIN 20 MG TAB PO SCH (10:03)
[2022-04-24] MEDS: cloNIDine HCL 0.1 MG TAB PO SCH (10:04)
[2022-04-24] MEDS: HEPARIN SODIUM (PORCINE) 5000 UNITS/ML 1ML VIAL SC SCH (10:07)
[2022-04-24] MEDS: LOSARTAN POTASSIUM 50 MG TAB PO SCH (10:11)
[2022-04-24] MEDS ORDERED: ALBUTEROL SULF 2.5 MG/0.5ML(0.5%) NEB SOLN NEB PRN (11:30)
[2022-04-24 12:00] VITALS: BP 142/57
[2022-04-24 13:30] VITALS: BP 142/57
== END 2022-04-24 17:05 | disposition home or self-care (01) | DRG 280 ==
LOC: ER 10:39 → EDBD 10:39 → OVERFLOW 12:30 → CENTRAL 23:52 → TELE-E-ADS 04-24 14:42
PROVIDERS: ADMIT Nurse Practitioner Family; ATTEND Internal Medicine
PROC: 5A1D70Z Performance of Urinary Filtration, Intermittent, Less than 6 Hours Per Day (ICD-10-PCS; principal; 2022-04-23)
DX: I13.2 Hypertensive heart and chronic kidney disease with heart failure and with stage 5 chronic kidney disease, or end stage renal disease (principal); I21.A1 Myocardial infarction type 2; I50.33 Acute on chronic diastolic (congestive) heart failure; N18.6 End stage renal disease; J96.00 Acute respiratory failure, unspecified whether with hypoxia or hypercapnia; E46 Unspecified protein-calorie malnutrition; E87.1 Hypo-osmolality and hyponatremia; E87.20 Acidosis, unspecified; D63.1 Anemia in chronic kidney disease; E11.22 Type 2 diabetes mellitus with diabetic chronic kidney disease; E78.5 Hyperlipidemia, unspecified; Z20.822 Contact with and (suspected) exposure to COVID-19; Z87.442 Personal history of urinary calculi; Z87.891 Personal history of nicotine dependence; Z68.27 Body mass index [BMI] 27.0-27.9, adult; Z82.49 Family history of ischemic heart disease and other diseases of the circulatory system; Z83.3 Family history of diabetes mellitus; Z91.199 Patient's noncompliance with other medical treatment and regimen due to unspecified reason; Z99.2 Dependence on renal dialysis; Z91.15 Patient's noncompliance with renal dialysis
CPT/HCPCS: 36415; 71045; 80048; 80053; 80061; 81001; 82962; 83036; 83880; 84484; 85025; 86803; 87040; 87070; 87081; 87205; 87340; 87426; 90935; 94640; 96365; 96366; 96368; 96372; 96375; 99291; C9113; G0378; J0696; J1815

== ENCOUNTER 2022-07-15 14:13 | Inpatient (IN) | payer MEDICARE, MEDICAID ==
[~2022-07-15] VITALS: Ht 152.4 cm; Wt 158.0 kg
[2022-07-15] MEDS ORDERED: hydrALAZINE HCL 20 MG/ML VL IV ONE (17:00)
[2022-07-15 18:17] LABS: Basophils # (auto) 0.2 10 ^3/uL (0-0.2); Basophils % (auto) 1.8 % (0.0-2.0); Eosinophils # (auto) 0.2 10 ^3/uL (0-0.8); Eosinophils % (auto) 2.5 % (0.0-7.0); Hematocrit 34.3 % (36.0-46.0); Hemoglobin 11.7 g/dL (12.2-16.2); Lymphocytes # (auto) 1.5 10 ^3/uL (0.4-5.4); Lymphocytes % (auto) 17.7 % (10.0-50.0); Mean Corpuscular Hemoglobin 31.1 pg (28.0-32.0); Mean Corpuscular Volume 91.3 fL (80.0-100.0); Monocytes # (auto) 0.9 10 ^3/uL (0-1.3); Monocytes % (auto) 10.2 % (0.0-12.0); Neutrophils # (auto) 5.9 10 ^3/uL (1.6-8.6); Neutrophils % (auto) 67.8 % (37.0-80.0); Nucleated Red Blood Cells % 0.2 %; Red Blood Cells 3.75 10^6/uL (4.0-5.20); Red Cell Distribution Width 15.3 % (11.8-14.3); White Blood Cell 8.7 10^3/uL (4.4-10.8)
[2022-07-15 18:28] LABS: Potassium 4.6 mmol/L (3.5-5.1)
[2022-07-15 18:31] VITALS: BP 228/100
[2022-07-15 18:36] LABS: Albumin 3.1 g/dL (3.4-5.0); BUN/Creatinine Ratio 9.3 (10.0-20.0); Bilirubin, Total 0.7 mg/dL (0.2-1.0); Calcium 8.3 mg/dL (8.5-10.1); Total Protein 7.1 g/dL (6.4-8.2)
[2022-07-15] MEDS ORDERED: LORazepam 2MG/ML-1ML VIAL IV ONE (18:45)
[2022-07-15] MEDS ORDERED: DEXTROSE 10% 250 ML IV ONE (18:52)
[2022-07-15] MEDS ORDERED: DEXTROSE (50%) 50ML SYRG IV ONE (19:00)
[2022-07-15 20:30] VITALS: BP 175/62
[2022-07-15] MEDS ORDERED: ALBUTEROL SULF 2.5 MG/0.5ML(0.5%) NEB SOLN NEB PRN (20:45)
[2022-07-15] MEDS ORDERED: DEXTROSE (50%) 50ML SYRG IV PRN (21:00)
[2022-07-15] MEDS ORDERED: ACETAMINOPHEN 325 MG TAB PO PRN (21:00)
[2022-07-15] MEDS ORDERED: ONDANSETRON HCL 4 MG/2 ML VIAL IV PRN (21:00)
[2022-07-15] MEDS ORDERED: NITROGLYCERIN 0.4 MG SL TAB SL PRN (21:00)
[2022-07-15] MEDS ORDERED: MORPHINE SULFATE INJ 2 MG/ml SYRG IV PRN (21:00)
[2022-07-15] MEDS: InsuLIN REG 1unit/0.01ml Soln (100units/ml) SC SCH (22:00)
[2022-07-15] MEDS ORDERED: FUROSEMIDE 100 MG/10ML VIAL IV ONE (22:00)
[2022-07-15] MEDS: ACCU-CHEK COMFORT CURVE STRIP VI SCH (22:08)
[2022-07-15] MEDS: ATORVASTATIN 20 MG TAB PO SCH (22:21)
[2022-07-15 23:13] VITALS: BP 171/64
[2022-07-16] VITALS (19 sets, daily range): BP systolic 109–192; BP diastolic 49–114
[2022-07-16] MEDS: cloNIDine HCL 0.1 MG TAB PO PRN ×2 (03:08→12:43)
[2022-07-16 04:53] LABS: Basophils # (auto) 0 10 ^3/uL (0-0.2); Basophils % (auto) 0.4 % (0.0-2.0); Eosinophils # (auto) 0.2 10 ^3/uL (0-0.8); Eosinophils % (auto) 2.7 % (0.0-7.0); Hematocrit 29.9 % (36.0-46.0); Lymphocytes # (auto) 1.3 10 ^3/uL (0.4-5.4); Lymphocytes % (auto) 23.2 % (10.0-50.0); Mean Corpuscular Hemoglobin 31.7 pg (28.0-32.0); Mean Corpuscular Hgb Conc. 33.5 g/dL (32.0-36.0); Mean Corpuscular Volume 94.5 fL (80.0-100.0); Monocytes # (auto) 0.6 10 ^3/uL (0-1.3); Monocytes % (auto) 11.1 % (0.0-12.0); Neutrophils # (auto) 3.5 10 ^3/uL (1.6-8.6); Neutrophils % (auto) 62.6 % (37.0-80.0); Nucleated Red Blood Cells % 0.1 %; Red Blood Cells 3.17 10^6/uL (4.0-5.20); Red Cell Distribution Width 15.4 % (11.8-14.3); White Blood Cell 5.6 10^3/uL (4.4-10.8)
[2022-07-16 05:07] LABS: Calcium 8.1 mg/dL (8.5-10.1); Potassium 4.7 mmol/L (3.5-5.1)
[2022-07-16 05:10] LABS: Albumin 2.6 g/dL (3.4-5.0); BUN/Creatinine Ratio 9.5 (10.0-20.0)
[2022-07-16 05:13] LABS: Bilirubin, Total 0.6 mg/dL (0.2-1.0); Total Protein 6.4 g/dL (6.4-8.2)
[2022-07-16] MEDS: InsuLIN REG 1unit/0.01ml Soln (100units/ml) SC SCH ×4 (06:56→21:38)
[2022-07-16] MEDS: ACCU-CHEK COMFORT CURVE STRIP VI SCH ×4 (06:56→21:38)
[2022-07-16] MEDS: CALCIUM ACETATE 667 MG CAP PO SCH ×3 (08:00→16:50)
[2022-07-16] MEDS ORDERED: SODIUM CHL 0.9% 1000 ML BAG XX ONE (08:00)
[2022-07-16] MEDS ORDERED: ALBUMIN 25% 100 ML IV ONE (08:00)
[2022-07-16] MEDS: ASPirin 81 mg TAB PO SCH (10:00)
[2022-07-16] MEDS ORDERED: AZITHROMYCIN 500MG/ 250ML 250 ML IV SCH (10:00)
[2022-07-16] MEDS: METOPROLOL SUCCINATE XL 50 MG TAB PO SCH (10:00)
[2022-07-16] MEDS ORDERED: DEXTROSE 10% 250 ML IV PRN (11:15)
[2022-07-16] MEDS: DEXTROSE 10% 1,000 ML IV ONE ×2 (11:30→11:44)
[2022-07-16] MEDS ORDERED: FUROSEMIDE 40 MG/4 ML VIAL IV ONE (11:30)
[2022-07-16] MEDS: LOSARTAN POTASSIUM 50 MG TAB PO SCH (11:44)
[2022-07-16 12:10] LABS: Hepatitis A Ab IgM Negative
[2022-07-16 12:11] LABS: Hepatitis B Core IgM Negative; Hepatitis C Antibody Negative (Negative)
[2022-07-16] MEDS ORDERED: hydrALAZINE HCL 20 MG/ML VL IV PRN (13:00)
[2022-07-16] MEDS ORDERED: amLODIPine BESYLATE 5 MG TAB PO ONE (13:00)
[2022-07-16] MEDS: FUROSEMIDE 40 MG/4 ML VIAL IV SCH (16:50)
[2022-07-16] MEDS ORDERED: EPOETIN ALFA-EPBX 10,000 UNIT/1ML VIAL SC ONE (21:00)
[2022-07-16] MEDS: ATORVASTATIN 20 MG TAB PO SCH (21:38)
[2022-07-17] VITALS (19 sets, daily range): BP systolic 125–160; BP diastolic 46–78
[2022-07-17 06:24] LABS: Basophils # (auto) 0.1 10 ^3/uL (0-0.2); Basophils % (auto) 1.2 % (0.0-2.0); Eosinophils # (auto) 0.4 10 ^3/uL (0-0.8); Eosinophils % (auto) 8.7 % (0.0-7.0); Hematocrit 33.1 % (36.0-46.0); Lymphocytes # (auto) 1.3 10 ^3/uL (0.4-5.4); Lymphocytes % (auto) 26.2 % (10.0-50.0); Mean Corpuscular Hemoglobin 30.7 pg (28.0-32.0); Mean Corpuscular Hgb Conc. 33.2 g/dL (32.0-36.0); Mean Corpuscular Volume 92.5 fL (80.0-100.0); Monocytes # (auto) 0.6 10 ^3/uL (0-1.3); Monocytes % (auto) 12.6 % (0.0-12.0); Neutrophils # (auto) 2.5 10 ^3/uL (1.6-8.6); Neutrophils % (auto) 51.3 % (37.0-80.0); Nucleated Red Blood Cells % 0.1 %; Red Blood Cells 3.57 10^6/uL (4.0-5.20); Red Cell Distribution Width 15.4 % (11.8-14.3); White Blood Cell 4.9 10^3/uL (4.4-10.8)
[2022-07-17] MEDS: FUROSEMIDE 40 MG/4 ML VIAL IV SCH (06:29)
[2022-07-17 06:37] LABS: Potassium 4.4 mmol/L (3.5-5.1)
[2022-07-17 06:42] LABS: BUN/Creatinine Ratio 7.3 (10.0-20.0); Calcium 8.1 mg/dL (8.5-10.1)
[2022-07-17] MEDS: InsuLIN REG 1unit/0.01ml Soln (100units/ml) SC SCH ×2 (06:49→11:30)
[2022-07-17] MEDS: ACCU-CHEK COMFORT CURVE STRIP VI SCH ×2 (06:49→11:30)
[2022-07-17] MEDS: ASPirin 81 mg TAB PO SCH (08:24)
[2022-07-17] MEDS: CALCIUM ACETATE 667 MG CAP PO SCH ×2 (08:24→12:00)
[2022-07-17] MEDS: LOSARTAN POTASSIUM 50 MG TAB PO SCH (08:24)
[2022-07-17] MEDS: METOPROLOL SUCCINATE XL 50 MG TAB PO SCH (08:25)
[2022-07-17] MEDS ORDERED: amLODIPine BESYLATE 5 MG TAB PO SCH (10:00)
== END 2022-07-17 18:36 | disposition home or self-care (01) | DRG 280 ==
LOC: EDUNIT# 14:13 → EDBD 14:13 → ER 14:13 → TELE 21:02 → DOU IN ICU 07-16 05:06
PROVIDERS: ADMIT Nurse Practitioner; ATTEND Internal Medicine
PROC: 5A09357 Assistance with Respiratory Ventilation, Less than 24 Consecutive Hours, Continuous Positive Airway Pressure (ICD-10-PCS; 2022-07-15)
PROC: 5A1D70Z Performance of Urinary Filtration, Intermittent, Less than 6 Hours Per Day (ICD-10-PCS; principal; 2022-07-16)
DX: I13.2 Hypertensive heart and chronic kidney disease with heart failure and with stage 5 chronic kidney disease, or end stage renal disease (principal); E43 Unspecified severe protein-calorie malnutrition; I21.A1 Myocardial infarction type 2; N18.6 End stage renal disease; J96.01 Acute respiratory failure with hypoxia; I50.33 Acute on chronic diastolic (congestive) heart failure; I16.1 Hypertensive emergency; Z68.44 Body mass index [BMI] 60.0-69.9, adult; E11.22 Type 2 diabetes mellitus with diabetic chronic kidney disease; E66.9 Obesity, unspecified; E07.9 Disorder of thyroid, unspecified; E78.5 Hyperlipidemia, unspecified; D64.9 Anemia, unspecified; Z82.49 Family history of ischemic heart disease and other diseases of the circulatory system; Z83.3 Family history of diabetes mellitus; Z87.442 Personal history of urinary calculi; Z87.891 Personal history of nicotine dependence; Z99.2 Dependence on renal dialysis
CPT/HCPCS: 36415; 36600; 71045; 80048; 80053; 80074; 82805; 82962; 83605; 83880; 84443; 84484; 85025; 85379; 87040; 87081; 87426; 90935; 93005; 93306; 94660; 96374; 96375; 97163; 99291; G0378; J1642

== ENCOUNTER 2022-07-29 12:43 | Inpatient (IN) | payer MEDICARE, MEDICAID ==
[~2022-07-29] VITALS: Ht 142.2 cm; Wt 64.6 kg
[2022-07-29 13:27] LABS: Basophils # (auto) 0.1 10 ^3/uL (0-0.2); Basophils % (auto) 1.4 % (0.0-2.0); Eosinophils # (auto) 0.3 10 ^3/uL (0-0.8); Eosinophils % (auto) 5.7 % (0.0-7.0); Hematocrit 35.3 % (36.0-46.0); Hemoglobin 11.4 g/dL (12.2-16.2); Lymphocytes # (auto) 1.1 10 ^3/uL (0.4-5.4); Mean Corpuscular Hemoglobin 30.2 pg (28.0-32.0); Mean Corpuscular Hgb Conc. 32.3 g/dL (32.0-36.0); Mean Corpuscular Volume 93.6 fL (80.0-100.0); Monocytes # (auto) 0.4 10 ^3/uL (0-1.3); Neutrophils # (auto) 3.6 10 ^3/uL (1.6-8.6); Neutrophils % (auto) 65.9 % (37.0-80.0); Nucleated Red Blood Cells % 0.1 %; Red Blood Cells 3.77 10^6/uL (4.0-5.20); Red Cell Distribution Width 15.7 % (11.8-14.3); White Blood Cell 5.5 10^3/uL (4.4-10.8)
[2022-07-29 13:57] LABS: Albumin 3.1 g/dL (3.4-5.0); Calcium 7.9 mg/dL (8.5-10.1); Magnesium 2.3 mg/dL (1.6-2.6); Potassium 4.8 mmol/L (3.5-5.1)
[2022-07-29 14:00] LABS: BUN/Creatinine Ratio 7.7 (10.0-20.0); Bilirubin, Total 0.6 mg/dL (0.2-1.0); Total Protein 7.2 g/dL (6.4-8.2)
[2022-07-29] MEDS ORDERED: VANCOMYCIN 1GM/250ML 250 ML IV ONE (15:30)
[2022-07-29] MEDS ORDERED: CEFEPIME 1GM/ 50ML 50 ML IV ONE (15:30)
[2022-07-29] MEDS ORDERED: ASPirin 325 MG TAB PO ONE (16:00)
[2022-07-29] MEDS ORDERED: NITROGLYCERIN 0.4 MG SL TAB SL PRN (17:15)
[2022-07-29] MEDS ORDERED: DEXTROSE (50%) 50ML SYRG IV PRN (17:15)
[2022-07-29] MEDS ORDERED: FUROSEMIDE 20 MG/2 ML VIAL IV ONE (17:15)
[2022-07-29] MEDS ORDERED: MORPHINE SULFATE INJ 2 MG/ml SYRG IV PRN (17:15)
[2022-07-29] MEDS ORDERED: ALBUTEROL SULF 2.5 MG/0.5ML(0.5%) NEB SOLN NEB PRN (18:00)
[2022-07-29] MEDS ORDERED: SUCRALFATE 1 GM TAB PO SCH (18:00)
[2022-07-29 18:32] VITALS: BP 151/57
[2022-07-29] MEDS ORDERED: HEPARIN SODIUM (PORCINE) 5000 UNITS/ML 1ML VIAL SC SCH (22:00)
[2022-07-29] MEDS: ACCU-CHEK COMFORT CURVE STRIP VI SCH (22:05)
[2022-07-29] MEDS: InsuLIN REG 1unit/0.01ml Soln (100units/ml) SC SCH (22:10)
[2022-07-29] MEDS: HEPARIN SODIUM (PORCINE) 5000 UNITS/ML 1ML VIAL SC SCH (22:10)
[2022-07-29] MEDS: cloNIDine HCL 0.1 MG TAB PO SCH (22:11)
[2022-07-29] MEDS: PANTOPRAZOLE 40 MG TAB PO SCH (22:11)
[2022-07-29] MEDS: CALCIUM ACETATE 667 MG CAP PO SCH (22:11)
[2022-07-29] MEDS: SUCRALFATE 1 GM TAB PO SCH (22:11)
[2022-07-30 05:43] LABS: Basophils # (auto) 0.1 10 ^3/uL (0-0.2); Basophils % (auto) 1.6 % (0.0-2.0); Eosinophils # (auto) 0.3 10 ^3/uL (0-0.8); Eosinophils % (auto) 6.1 % (0.0-7.0); Hematocrit 32.8 % (36.0-46.0); Hemoglobin 10.9 g/dL (12.2-16.2); Lymphocytes # (auto) 1.8 10 ^3/uL (0.4-5.4); Lymphocytes % (auto) 34.2 % (10.0-50.0); Mean Corpuscular Hemoglobin 30.8 pg (28.0-32.0); Mean Corpuscular Hgb Conc. 33.3 g/dL (32.0-36.0); Mean Corpuscular Volume 92.6 fL (80.0-100.0); Monocytes # (auto) 0.4 10 ^3/uL (0-1.3); Monocytes % (auto) 7.7 % (0.0-12.0); Neutrophils # (auto) 2.6 10 ^3/uL (1.6-8.6); Neutrophils % (auto) 50.4 % (37.0-80.0); Nucleated Red Blood Cells % 0.1 %; Red Blood Cells 3.54 10^6/uL (4.0-5.20); Red Cell Distribution Width 15.8 % (11.8-14.3); White Blood Cell 5.2 10^3/uL (4.4-10.8)
[2022-07-30 06:01] LABS: Albumin 2.8 g/dL (3.4-5.0); Calcium 8.2 mg/dL (8.5-10.1); Potassium 4.3 mmol/L (3.5-5.1)
[2022-07-30 06:05] LABS: BUN/Creatinine Ratio 7.7 (10.0-20.0); Bilirubin, Total 0.6 mg/dL (0.2-1.0); Total Protein 6.8 g/dL (6.4-8.2)
[2022-07-30] MEDS: CALCIUM ACETATE 667 MG CAP PO SCH ×3 (06:26→21:59)
[2022-07-30] MEDS: SUCRALFATE 1 GM TAB PO SCH ×4 (06:27→21:59)
[2022-07-30] MEDS: InsuLIN REG 1unit/0.01ml Soln (100units/ml) SC SCH ×4 (06:27→22:00)
[2022-07-30] MEDS: ACCU-CHEK COMFORT CURVE STRIP VI SCH ×4 (06:27→22:01)
[2022-07-30] MEDS: hydrALAZINE HCL 20 MG/ML VL IV PRN (09:10)
[2022-07-30] MEDS: ASPirin 81 mg TAB PO SCH (10:08)
[2022-07-30] MEDS: LOSARTAN POTASSIUM 50 MG TAB PO SCH (10:08)
[2022-07-30] MEDS: METOPROLOL SUCCINATE XL 50 MG TAB PO SCH (10:09)
[2022-07-30] MEDS: ATORVASTATIN 20 MG TAB PO SCH (10:09)
[2022-07-30] MEDS: PANTOPRAZOLE 40 MG TAB PO SCH ×2 (10:09→21:59)
[2022-07-30] MEDS: HEPARIN SODIUM (PORCINE) 5000 UNITS/ML 1ML VIAL SC SCH ×2 (10:10→22:02)
[2022-07-30] MEDS: cloNIDine HCL 0.1 MG TAB PO SCH ×2 (11:10→22:00)
[2022-07-30] MEDS ORDERED: HYDROcodone-ACET 5/325MG TAB PO PRN (12:45)
[2022-07-30 12:48] VITALS: BP 154/66
[2022-07-30] MEDS ORDERED: SODIUM CHL 0.9% 1000 ML BAG XX ONE (14:15)
[2022-07-30] MEDS ORDERED: HYDR25TA87 PO (15:20)
[2022-07-30] MEDS ORDERED: LEVO50TA7 PO (15:20)
[2022-07-30] MEDS ORDERED: AMLO-489 PO (15:20)
[2022-07-30 16:29] VITALS: BP 159/80
[2022-07-30] MEDS ORDERED: ACETAMINOPHEN 500 MG TAB PO PRN (17:15)
[2022-07-30] MEDS ORDERED: EPOETIN ALFA-EPBX 4,000 UNIT/ML VIAL SC ONE (21:00)
[2022-07-30] MEDS ORDERED: ALBUTEROL SULF 2.5 MG/0.5ML(0.5%) NEB SOLN NEB PRN (21:45)
[2022-07-30] MEDS ORDERED: LACTULOSE 20Gm/30ML SOLN PO PRN (21:45)
[2022-07-30 22:00] VITALS: BP 186/69
[2022-07-31] MEDS: ALBUTEROL SULF 2.5 MG/0.5ML(0.5%) NEB SOLN NEB SCH ×3 (00:10→13:11)
[2022-07-31] MEDS: IPRATROPIUM BROM 0.5 MG/2.5ML INH SOL NEB SCH ×3 (00:10→13:11)
[2022-07-31] MEDS: DOXYCYCLINE 100MG/250ML 250 ML IV SCH ×2 (00:46→11:21)
[2022-07-31] MEDS: hydrALAZINE HCL 20 MG/ML VL IV PRN (02:46)
[2022-07-31 05:00] VITALS: BP 171/64
[2022-07-31] MEDS: SUCRALFATE 1 GM TAB PO SCH ×2 (06:20→11:25)
[2022-07-31] MEDS: ACCU-CHEK COMFORT CURVE STRIP VI SCH ×2 (06:20→12:18)
[2022-07-31] MEDS: InsuLIN REG 1unit/0.01ml Soln (100units/ml) SC SCH ×2 (06:20→11:30)
[2022-07-31] MEDS: CALCIUM ACETATE 667 MG CAP PO SCH ×2 (06:20→14:23)
[2022-07-31 06:54] LABS: Basophils # (auto) 0.1 10 ^3/uL (0-0.2); Basophils % (auto) 1.2 % (0.0-2.0); Eosinophils # (auto) 0.3 10 ^3/uL (0-0.8); Eosinophils % (auto) 5.3 % (0.0-7.0); Hematocrit 31.7 % (36.0-46.0); Hemoglobin 10.4 g/dL (12.2-16.2); Lymphocytes # (auto) 1.7 10 ^3/uL (0.4-5.4); Lymphocytes % (auto) 30.9 % (10.0-50.0); Mean Corpuscular Hemoglobin 30.9 pg (28.0-32.0); Mean Corpuscular Volume 93.7 fL (80.0-100.0); Monocytes # (auto) 0.4 10 ^3/uL (0-1.3); Monocytes % (auto) 7.5 % (0.0-12.0); Neutrophils # (auto) 2.9 10 ^3/uL (1.6-8.6); Neutrophils % (auto) 55.1 % (37.0-80.0); Nucleated Red Blood Cells % 0.2 %; Red Blood Cells 3.38 10^6/uL (4.0-5.20); Red Cell Distribution Width 15.4 % (11.8-14.3); White Blood Cell 5.4 10^3/uL (4.4-10.8)
[2022-07-31] MEDS ORDERED: SODIUM CHL 0.9% 1000 ML BAG XX ONE (08:45)
[2022-07-31 09:00] VITALS: BP 192/67
[2022-07-31] MEDS: HEPARIN SODIUM (PORCINE) 5000 UNITS/ML 1ML VIAL SC SCH (10:00)
[2022-07-31] MEDS ORDERED: cloNIDine HCL 0.1 MG TAB PO PRN (11:15)
[2022-07-31] MEDS: PANTOPRAZOLE 40 MG TAB PO SCH (11:21)
[2022-07-31] MEDS: ATORVASTATIN 20 MG TAB PO SCH (11:22)
[2022-07-31] MEDS: METOPROLOL SUCCINATE XL 50 MG TAB PO SCH (11:23)
[2022-07-31] MEDS: ASPirin 81 mg TAB PO SCH (11:24)
[2022-07-31] MEDS: cloNIDine HCL 0.1 MG TAB PO SCH ×2 (11:25→14:24)
[2022-07-31] MEDS: LOSARTAN POTASSIUM 50 MG TAB PO SCH (11:25)
[2022-07-31] MEDS ORDERED: guaiFENesin-DM 100/10mg/5ml SYR PO PRN (12:00)
[2022-07-31 13:00] VITALS: BP 178/66
[2022-07-31] MEDS ORDERED: CLON0.2T PO (13:27)
[2022-07-31] MEDS ORDERED: DOXY-340 PO (13:27)
[2022-07-31] MEDS ORDERED: hydrALAZINE HCL 25 MG TAB PO ONE (14:00)
[2022-07-31 14:07] VITALS: BP 173/55
== END 2022-07-31 16:10 | disposition home or self-care (01) | DRG 280 ==
LOC: ER 12:43 → TELE 17:27 → TELE-CENTR 07-30 13:09
PROVIDERS: ADMIT Nurse Practitioner Family; ATTEND Internal Medicine
PROC: 5A1D70Z Performance of Urinary Filtration, Intermittent, Less than 6 Hours Per Day (ICD-10-PCS; principal; 2022-07-30)
DX: I13.2 Hypertensive heart and chronic kidney disease with heart failure and with stage 5 chronic kidney disease, or end stage renal disease (principal); I50.33 Acute on chronic diastolic (congestive) heart failure; I21.A1 Myocardial infarction type 2; J96.01 Acute respiratory failure with hypoxia; N18.6 End stage renal disease; J18.9 Pneumonia, unspecified organism; D63.1 Anemia in chronic kidney disease; E11.22 Type 2 diabetes mellitus with diabetic chronic kidney disease; E78.5 Hyperlipidemia, unspecified; E07.9 Disorder of thyroid, unspecified; E66.9 Obesity, unspecified; R07.89 Other chest pain; Z20.822 Contact with and (suspected) exposure to COVID-19; Z87.891 Personal history of nicotine dependence; Z87.442 Personal history of urinary calculi; Z83.3 Family history of diabetes mellitus; Z99.2 Dependence on renal dialysis; Z82.49 Family history of ischemic heart disease and other diseases of the circulatory system; Z68.22 Body mass index [BMI] 22.0-22.9, adult
CPT/HCPCS: 36415; 71045; 78582; 80053; 82962; 83735; 83880; 84484; 85025; 85379; 87081; 87426; 87804; 90935; 93005; 94640; 96365; 96367; 99291; G0378; J1642; J1815; J3490

== ENCOUNTER 2024-05-27 04:33 | Inpatient (IN) | payer MEDICARE, MEDICAID ==
[~2024-05-27] VITALS: Ht 167.6 cm; Wt 65.0 kg
[~2024-05-27 04:33] MED LIST changes: +ALEN70TA74 PO; +AMLO1TAB22 PO; +CLON0.2T PO; +DOXY1CAP57 PO; +HYDR25TA87 PO; +HYDR50TA47 PO; +LEVO100C3 PO; +LEVO50TA7 PO; -LOSA-39 PO; +LOSA-535 PO; +MET50T PO; +NIFE1TAB30 PO; +PAR20T PO; -SUCR1TAB22 PO; +SUCR1TAB31 PO
[2024-05-27 05:46] LABS: Basophils # (auto) 0 10 ^3/uL (0-0.2); Eosinophils # (auto) 0.2 10 ^3/uL (0-0.8); Eosinophils % (auto) 6.1 % (0.0-7.0); Hematocrit 37.4 % (36.0-46.0); Hemoglobin 12.6 g/dL (12.2-16.2); Lymphocytes # (auto) 0.6 10 ^3/uL (0.4-5.4); Lymphocytes % (auto) 16.6 % (10.0-50.0); Mean Corpuscular Hemoglobin 31.8 pg (28.0-32.0); Mean Corpuscular Hgb Conc. 33.6 g/dL (32.0-36.0); Mean Corpuscular Volume 94.5 fL (80.0-100.0); Monocytes # (auto) 0.6 10 ^3/uL (0-1.3); Neutrophils # (auto) 2.3 10 ^3/uL (1.6-8.6); Neutrophils % (auto) 61.3 % (37.0-80.0); Nucleated Red Blood Cells % 0.2 %; Platelet Count (auto) 95 10^3/uL (140-450); Red Blood Cells 3.95 10^6/uL (4.0-5.20); Red Cell Distribution Width 16.7 % (11.8-14.3); White Blood Cell 3.8 10^3/uL (4.4-10.8)
--- NOTE | 2024-05-27 05:52 | PRN ---
Misceleneous Note Note Note RAPID MEDICAL ASSESSMENT NOTE: 59-year-old female who presents via EMS. At this time she is reporting abdominal pain and sore throat. She initially reported to EMS that she had chest pain. Blood pressure noted to be mildly elevated on arrival. Physical exam: General: Awake, alert and oriented. No acute distress. Skin: Skin in warm, dry and intact without rashes or lesions. HEENT: The head is normocephalic and atraumatic. Left conjunctiva is injected with clear discharge. Neck: Normal range of motion. No JVD. Cardiac: Regular rate Respiratory: No signs of respiratory distress. No Stridor. Neurological: The patient is awake, alert and oriented to person, place, and time with normal speech. Speech is clear. There is no facial asymmetry. Plan: Labs ordered. EKG reviewed showing sinus rhythm, no STEMI. Sign out to oncoming provider pending full evaluation and re-assessment. MARCO POE MD May 27, 2024 05:52
[2024-05-27 06:00] LABS: Alanine Aminotransferase 28 U/L (7-40); Albumin 4.2 g/dL (3.2-4.8); Anion Gap 10 (5-15); Calcium 8.8 mg/dL (8.7-10.4); Carbon Dioxide 26 mmol/L (20-31); Potassium 4.5 mmol/L (3.5-5.1)
[2024-05-27 06:01] LABS: Bilirubin, Total 0.3 mg/dL (0.2-1.0); Total Protein 7.3 g/dL (5.7-8.2)
[2024-05-27 06:02] LABS: Sodium 134 mmol/L (136-145)
[2024-05-27 06:03] LABS: Alkaline Phosphatase 271 U/L (46-116); Aspartate Aminotransferase 50 U/L (13-40); Blood Urea Nitrogen 29 mg/dL (9-23); Chloride 98 mmol/L (98-107); Glucose 94 mg/dL (74-106)
--- NOTE | 2024-05-27 06:18 | DVH ---
CHEST RADIOGRAPH Indication: cp Technique: Single frontal view of the chest was obtained Comparison: XY CHEST PORTABLE on DOS: 07/29/22, XY CHEST PORTABLE on DOS: 07/15/22, CHEST PORTABLE on D OS: 04/22/22 IMPRESSION: Heart is prominent in size. There is moderate pulmonary vascular congestion, increased airspace opaci ty on the right. Pleural effusions have improved. No pneumothorax. Right dialysis catheter unchanged .
--- NOTE | 2024-05-27 07:23 | ED.PDOC ---
HPI Comments 59-year-old female brought in by EMS presents with a chief complaint of elevated blood pressure, nausea, vomiting, productive cough, and generalized weakness. Per EMS, patient experienced near-syncopal episode when they arrived on scene. Patients initial BP for EMS was 217/89 and was 190/63 on ER arrival. Patient is slow to respond and at bedside evaluation, patients BP was 104/62. Patient also in on dialysis and is dialyzed on Mon/Wed/Fri. Chief Complaint: High Blood Pressure Time Seen by MD: 07:11 Primary Care Provider: UNKNOWN Reviewed Notes: Medications, Allergies Allergies: Coded Allergies: NO KNOWN ALLERGIES (Unverified , 07/06/20) Home Meds Active Scripts Clonidine Hydrochloride (Clonidine Hcl) 0.2 Mg Tab, 0.2 MG PO TID for 30 Days, #90 TAB Prov:LUI WAITE MD 07/31/22 Doxycycline Monohydrate (Doxycycline Monohydrate) 100 Mg Cap, 1 CAP PO BID for 10 Days, #28 CAP Prov:LUI WAITE MD 07/31/22 Calcium Acetate (PHOSLO CAPSULE) 667 Mg Cp, 1 CAP PO TID, #90 CAP 5 Refills Prov:MARA POWERS MD 08/10/21 Levofloxacin (Levaquin) 500 Mg Tab, 500 MG PO DAILY, #10 TAB Prov:MARA POWERS MD 08/10/21 Metronidazole (Flagyl) 500 Mg Tab, 500 MG PO TID, #30 TAB Prov:MARA POWERS MD 08/10/21 Sucralfate (CARAFATE) 1 Gm Tab, 1 GM PO Q6HR for 14 Days, #56 TAB Prov:MARA POWERS MD 08/10/21 Pantoprazole Sodium Sesquihydr (Pantoprazole Sodium) 40 Mg Tab, 40 MG PO BID, #60 TAB Prov:MARA POWERS MD 08/10/21 Hydromorphone Hcl (Dilaudid) 2 Mg Tab, 1 TAB PO TID PRN, #20 TAB Prov:MARA POWERS MD 08/10/21 Reported Medications Levothyroxine Sodium (Levothyroxine Sodium) 50 Mcg Tab, 1 TAB PO DAILY 07/30/22 Amlodipine Besylate (Amlodipine Besylate) 5 Mg Tab, 2 TAB PO DAILY 07/30/22 Hydralazine HCl (Hydralazine HCl) 25 Mg Tab, 1 TAB PO TID 07/30/22 Metoprolol Succinate (Metoprolol Succinate Er) 50 Mg Tab, 50 MG PO DAILY, TAB 07/29/21 Glipizide (Glipizide) 10 Mg Tab, 10 MG PO BID for 30 Days, MG 07/29/21 Aspirin (Aspirin) 81 Mg Chw, 81 MG PO DAILY, TAB.CHEW 07/29/21 Clonidine Hydrochloride (Clonidine Hcl) 0.1 Mg Tab, 0.1 MG PO BID for 30 Days, MG 07/29/21 Losartan Potassium (Losartan Potassium) 100 Mg Tab, 100 MG PO DAILY for 30 Days, MG 07/29/21 Atorvastatin Calcium (Lipitor) 20 Mg Tab, 20 MG PO DAILY, TAB 07/29/21 Insulin Glargine (Basaglar Kwikpen) 100 Unit/Ml Inj, 20 UNIT SC, INJ 07/29/21 Information Source: Patient, Emergency Med Personnel Mode of Arrival: EMS Severity: Moderate Timing: Hours Duration: Since onset Cardiac Risk Factors: HTN Past Medical History PAST MEDICAL HISTORY: DM, ESRD, High Lipids, HTN, Kidney Stones Surgical History: BTL, PLATE FILLER History: No Pertinent PLATE FILLER History Family History Family History: Family hx of DM, Family hx of HTN Social History Smoker: Quit Greater Than 1 Year Alcohol: Rarely Drugs: Denies Drug Use Lives In: Home Constitutional: reports: weakness; denies: chills, diaphoresis, fatigue, fever, malaise, sweats, others EENTM: denies: blurred vision, double vision, ear bleeding, ear discharge, ear drainage, ear pain, ear ringing, eye pain, eye redness, hearing loss, mouth pain, mouth swelling, nasal discharge, nose bleeding, nose congestion, nose pain, photophobia, tearing, throat pain, throat swelling, voice changes, others Respiratory: reports: cough; denies: hemoptysis, orthopnea, SOB at rest, shortness of breath, SOB with excertion, stridor, wheezing, others Cardiovascular: reports: others (HYPERTENSION); denies: chest pain, dizzy spells, diaphoresis, Dyspnea on exertion, edema, irregular heart beat, left arm pain, lightheadedness, palpitations, PND, syncope Gastrointestinal: denies: abdomen distended, abdominal pain, blood streaked bowels, constipated, diarrhea, dysphagia, difficulty swallowing, hematemesis, melena, nausea, poor appetite, poor fluid intake, rectal bleeding, rectal pain, vomiting, others Genitourinary: denies: abnormal vagina bleeding, burning, dyspareunia, dysuria, flank pain, frequency, hematuria, incontinence, pain, , vagina discharge, urgency, others Neurological: denies: dizziness, fainting, headache, left sided numbness, left sided weakness, numbness, paresthesia, pre-existing deficit, right sided numbness, right sided weakness, seizure, speech problems, tingling, tremors, weakness, others Musculoskeletal: denies: back pain, gout, joint pain, joint swelling, muscle pain, muscle stiffness, neck pain, others Integumetry: denies: bruises, change in color, change in hair/nails, dryness, laceration, lesions, lumps, rash, wounds, others Allergic/Immunocompromised: denies: Difficulty Healing, Frequent Infections, Hives, Itching, others Hematologic/Lymphatic: denies: anemia, blood clots, easy bleeding, easy bruising, swollen glands, others Endocrine: denies: excessive hunger, excessive sweating, excessive thirst, excessive urination, flushing, intolerance to cold, intolerance to heat, unexplained weight gain, unexplained weight loss, others Psychiatric: denies: anxiety, bipolar disorder, depression, hopeless, panic disorder, schizophrenia, sleepless, suicidal, others All Other Systems: Reviewed and Negative Physical Exam General Appearance: Moderate Distress, Normal HEENT: Normal ENT Inspection, Pharynx Normal, TMs Normal Neck: Full Range of Motion, Non-Tender, Normal, Normal Inspection Respiratory: Chest Non-Tender, No Accessory Muscle Use, No Respiratory Distress, Other (Crackles to the right lung) Cardiovascular: No Edema, No JVD, No Murmur, No Gallop, Normal Peripheral Pulses, Regular Rate/Rhythm, Other (Right dialysis catheter in place of the right chest wall) Breast Exam: Deferred Gastrointestinal: No Organomegaly, Non Tender, No Pulsatile Mass, Normal Bowel Sounds, Soft Genitalia: Deferred Pelvic: Deferred Rectal: Deferred Extremities: No calf tenderness, Normal capillary refill, Normal inspection, Normal range of motion, Non-tender, No pedal edema Musculoskeletal : Apperance: Normal Neurologic: Alert, No Motor Deficits, Normal Affect, Normal Mood, No Sensory Deficits Cerebellar Function: Normal Reflexes: Normal Skin: Dry, Normal Color, Warm Lymphatic: No Adenopathy EKG EKG : Comments Normal sinus rhythm rate of 93, nonspecific ST changes to the lateral leads. Was a procedure done? Was a procedure done?: No CP Differential Dx Differential Diagnosis: Electrolyte Disorder, Hypoxia, Renal Failure Differential Diagnosis: HTN Accelerated Differential Diagnosis: Pneumonia, Other (Pulmonary congestion) X-Ray, Labs, Meds, VS Vital Signs Date Time Temp Pulse Resp B/P (MAP) Pulse Ox O2 Delivery O2 Flow Rate FiO2 05/27/24 07:45 82 15 91 Room Air* 0 21 05/27/24 07:45 97.7 82 15 104/62 (76) 91 97.7 05/27/24 05:24 98.3 94 14 190/63 (105) 98 05/27/24 04:35 93 Lab Test 05/27/24 09:07 05/27/24 08:44 05/27/24 06:28 05/27/24 05:18 Range/Units POC Glucose 96 70-106 mg/dl Troponin I High Sensitivity 114 *H 116 *H 113 *H </=34 ng/L White Blood Count 3.8 L 4.4-10.8 10^3/uL Red Blood Count 3.95 L 4.0-5.20 10^6/uL Hemoglobin 12.6 12.2-16.2 g/dL Hematocrit 37.4 36.0-46.0 % Mean Corpuscular Volume 94.5 80.0-100.0 fL Mean Corpuscular Hemoglobin 31.8 28.0-32.0 pg Mean Corpuscular Hemoglobin Concent 33.6 32.0-36.0 g/dL Red Cell Distribution Width 16.7 H 11.8-14.3 % Platelet Count 95 L 140-450 10^3/uL Mean Platelet Volume 8.6 6.9-10.8 fL Neutrophils (%) (Auto) 61.3 37.0-80.0 % Lymphocytes (%) (Auto) 16.6 10.0-50.0 % Monocytes (%) (Auto) 15.0 H 0.0-12.0 % Eosinophils (%) (Auto) 6.1 0.0-7.0 % Basophils (%) (Auto) 1.0 0.0-2.0 % Neutrophils # (Auto) 2.3 1.6-8.6 10 ^3/uL Lymphocytes # (Auto) 0.6 0.4-5.4 10 ^3/uL Monocytes # (Auto) 0.6 0-1.3 10 ^3/uL Eosinophils # (Auto) 0.2 0-0.8 10 ^3/uL Basophils # (Auto) 0 0-0.2 10 ^3/uL Nucleated Red Blood Cells 0.2 % Sodium Level 134 L 136-145 mmol/L Potassium Level 4.5 3.5-5.1 mmol/L Chloride Level 98 98-107 mmol/L Carbon Dioxide Level 26 20-31 mmol/L Anion Gap 10 5-15 Blood Urea Nitrogen 29 H 9-23 mg/dL Creatinine 4.86 H 0.550-1.02 mg/dL Glomerular Filtration Rate Calc 10 >90 mL/min BUN/Creatinine Ratio 6.0 L 10.0-20.0 Serum Glucose 94 74-106 mg/dL Calcium Level 8.8 8.7-10.4 mg/dL Total Bilirubin 0.3 0.2-1.0 mg/dL Aspartate Amino Transferase (AST) 50 H 13-40 U/L Alanine Aminotransferase (ALT) 28 7-40 U/L Alkaline Phosphatase 271 H 46-116 U/L B-Type Natriuretic Peptide 1138.42 0-100 pg/mL Total Protein 7.3 5.7-8.2 g/dL Albumin 4.2 3.2-4.8 g/dL PATIENT: LISBETH CASTRO ACCT: [id number] UNIT: [id number] : 1965 LOC: ER ROOM / BED: / AGE / SEX: 59 / F ADM STATUS: REG ER SERVICE [id number] ORDERING PHYSICIAN: MARCO POE MD PROCEDURE(s): CXR1 - CHEST XRAY 1 VIEW REASON: cp ORDER NUMBER(s): [id number], ACCESSION NUMBER(s): [id number] CHEST RADIOGRAPH Indication: cp Technique: Single frontal view of the chest was obtained Comparison: XY CHEST PORTABLE on DOS: 07/29/22, XY CHEST PORTABLE on DOS: 07/15/22, CHEST PORTABLE on DOS: 04/22/22 IMPRESSION: Heart is prominent in size. There is moderate pulmonary vascular congestion, increased airspace opacity on the right. Pleural effusions have improved. No pneumothorax. Right dialysis catheter unchanged. ATED BY: DOMINICK GREGORY MD DICTATED DATE/TIME: 05/27/24617 SIGNED BY: DOMINICK GREGORY MD SIGNED DATE/TIME: 05/27/24617 59-year-old female presents here with hypertension. Her blood pressure was initially in the 200s systolic. She did state she took her losartan this morning. However patient has a poor historian unable to give me much detail. Unclear if she took any other medications. When I saw the patient her blood pressure now dropped to 104 systolic. Patient is a dialysis patient 1 day Wednesday. And did receive dialysis yesterday. At this time chest x-ray demonstrates significant pulmonary vascular congestion on the right. Blood work demonstrates evidence of end-stage renal disease and elevated BNP, as well as elevated troponin. EKG demonstrates sinus rhythm with nonspecific ST changes.. At this time given her labile blood pressure and pulmonary congestion I have contacted hospitalist team for admission. Time of 1ST Reevaluation: 07:41 Reevaluation 1ST: Unchanged Patient Education/Counseling: Diagnosis, Treatment, Prognosis Family Education/Counseling: Diagnosis, Treatment, Prognosis Departure 1 Departure Time of Disposition: 09:11 Impression: Primary Impression: ESRD on dialysis Additional Impressions: Hypertensive urgency Elevated troponin Pulmonary edema Qualified Codes: J81.0 - Acute pulmonary edema Disposition: ADMITTED INPATIENT Condition: Fair Discharged With: Self Critical Care Note Critical Care Time?: No Stability Stability form required: No Heart Score Heart Score: Heart Score Response (Comments) Value History Moderate Suspicious 1 EKG Repolarization Disturb 1 Age 45-64 1 Risk Factors 1 or 2 risk factors 1 Troponin 1-2 x's Normal limit 1 Total 5 I personally scribed for RADHAMES CATHERINE MD ([email or web address]) on 05/27/24 at 07:23. Electronically submitted by Ashok West ([email or web address]). I personally scribed for RADHAMES CATHERINE MD ([email or web address]) on 05/27/24 at 07:36. Electronically submitted by Ashok West ([email or web address]). RADHAMES CATHERINE MD May 27, 2024 07:23
[2024-05-27 07:45] VITALS: PULSE 82; RESP 15; O2SAT 91
[2024-05-27] MEDS ORDERED: ACETAMINOPHEN 325 MG TAB PO PRN (11:00)
[2024-05-27] MEDS ORDERED: DEXTROSE (50%) 50ML SYRG IV PRN (11:00)
[2024-05-27] MEDS ORDERED: NITROGLYCERIN 0.4 MG SL TAB SL PRN (11:00)
[2024-05-27] MEDS ORDERED: MORPHINE SULFATE INJ 2 MG/ml SYRG IV PRN (11:00)
[2024-05-27] MEDS: InsuLIN REG 1unit/0.01ml Soln (100units/ml) SC SCH (11:30)
[2024-05-27 11:44] LABS: Triglycerides 62 mg/dL (< 150)
[2024-05-27] MEDS: cefTRIAXone 1GM/50ML D5W 50 ML IV ONE (11:44)
[2024-05-27 11:45] LABS: LDL Cholesterol 87 mg/dL (< 100)
[2024-05-27 11:46] LABS: Cholesterol 154 mg/dL (< 200); HDL Cholesterol 52 mg/dL (40-59)
[2024-05-27] MEDS: ACCU-CHEK COMFORT CURVE STRIP VI SCH (11:50)
[2024-05-27] MEDS: AZITHROMYCIN 500MG/ 250ML 250 ML IV ONE (11:57)
[2024-05-27] MEDS ORDERED: DORZ2SOL18 OP (11:58)
[2024-05-27] MEDS ORDERED: ISOS5TAB PO (11:58)
[2024-05-27] MEDS ORDERED: GAB100C PO (11:58)
--- NOTE | 2024-05-27 12:00 | DVHHP2 ---
History of Present Illness Reason for Visit: Chest pain History of Present Illness Trina Forbes is a 59-year-old female with a past medical history of hypertension, hyperlipidemia, diabetes, end-stage renal disease on HD (M/W/F) who presents to the ED for chest pain cough, phlegm, general weakness, syncope, increased blood pressure, nausea, vomiting, and headache x3 weeks. Patient reports the chest pain as intermittent 8/10 nonradiating. Patient also reports the abdominal pain 10/10 throbbing and constant. Patient also reports a headache 10/10 throbbing and constant. Patient denies any recent sick contacts or recent illnesses, recent ingestion of spoiled food, diarrhea, shortness of breath, fever, chills, lightheadedness, and dizziness. 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 Cardiovascular: HTN, hyperipidemia Renal/: Chronic renal failure Endocrine: Diabetes Past Surgical History: Cholecystectomy, , Tubal Ligation Smoke: No ALCOHOL: none Drugs: None Lives: with Family Domestic Violence: Neg Review of Systems Constitutional: Yes: Other (Syncope and headache); No: Fever, Chills, Sweats, Weakness, Malaise Eyes: No: Pain, Vision change, Conjunctivae inflammation, Eyelid inflammation, Other, Redness ENT: No: Ear pain, Ear discharge, Nose pain, Nose discharge, Nose congestion, Mouth pain, Mouth swelling, Throat pain, Throat swelling, Other Respiratory: Cough, Sputum; No: Dry, Shortness of breath, SOB with excertion, Wheezing, Hemoptysis, Pleuritic Pain, Wheezing, Other Cardiovascular: Chest Pain; No: Palpitations, Orthopnea, Paroxysmal Noc. Dyspnea, Edema, Lt Headedness, Other Gastrointestinal: Nausea, Vomiting, Abdominal Pain; No: Diarrhea, Constipation, Melena, Hematochezia, Other Genitourinary: No Dysuria, No Frequency, No Incontinence, No Hematuria, No Retention, No Other Musculoskeletal: No: other, neck pain, shoulder pain, arm pain, back pain, hand pain, leg pain, foot pain Skin: Other (Old scars on lower extremity bilateral); No: Rash, Lesions, Jaundice, Bruising Neurological: No: Weakness, Numbness, Incoordination, Change in speech, Confusion, Seizures, Other Allergies: Coded Allergies: NO KNOWN ALLERGIES (Unverified , 07/06/20) Medications Current Medications Medications Dose Ordered Sig/Eduardo Route Start Time Stop Time Status Last Admin Dose Admin Diagnostic Test (Pha) 1 strip ACHS 05/27/24 11:30 UNV Insulin Human Regular ACHS SC 05/27/24 11:30 UNV Dextrose 50 ml UD PRN IV 05/27/24 11:00 UNV Ceftriaxone Sodium 50 ml @ 100 mls/hr DAILY@09 IV 05/28/24 09:00 UNV Azithromycin 250 ml @ 125 mls/hr DAILY IV 05/28/24 10:00 UNV Aspirin 81 mg DAILY PO 05/28/24 10:00 UNV Atorvastatin Calcium 40 mg HS PO 05/27/24 22:00 UNV Acetaminophen 650 mg Q6HP PRN PO 05/27/24 11:00 UNV Ondansetron HCl 4 mg Q4HP PRN IV 05/27/24 11:00 UNV Nitroglycerin 0.4 mg Q5MINP PRN SL 05/27/24 11:00 UNV Morphine Sulfate 2 mg Q30M PRN IV 05/27/24 11:00 UNV Exam Vital Signs Vital Signs Date Time Temp Pulse Resp B/P (MAP) Pulse Ox O2 Delivery O2 Flow Rate FiO2 05/27/24 09:34 82 15 184/64 (104) 05/27/24 07:45 91 Room Air* 0 21 05/27/24 07:45 97.7 97.7 General Appearance: Alert, Oriented X3, Cooperative, No acute distress HEENT: Atraumatic, PERRLA, EOMI, Mucous membr. moist/pink Respiratory: Clear to auscultation, Normal air movement Cardiovascular: Regular rate, Normal S1, Normal S2, No murmurs Abdominal: Normal bowel sounds, Soft, No hepatospenomegaly, No masses Extremities: No clubbing, No cyanosis, No edema, Normal pulses, No te nderness/swelling Skin: No significant lesion Neuro: Normal speech, Strength at 5/5 X4 ext, Normal tone, Sensation intact Psych/Mental Status: Mental status NL, Mood NL Labs/Xrays Labs Test 05/27/24 09:07 05/27/24 08:44 05/27/24 05:18 Range/Units POC Glucose 96 70-106 mg/dl Troponin I High Sensitivity 114 *H </=34 ng/L White Blood Count 3.8 L 4.4-10.8 10^3/uL Red Blood Count 3.95 L 4.0-5.20 10^6/uL Hemoglobin 12.6 12.2-16.2 g/dL Hematocrit 37.4 36.0-46.0 % Mean Corpuscular Volume 94.5 80.0-100.0 fL Mean Corpuscular Hemoglobin 31.8 28.0-32.0 pg Mean Corpuscular Hemoglobin Concent 33.6 32.0-36.0 g/dL Red Cell Distribution Width 16.7 H 11.8-14.3 % Platelet Count 95 L 140-450 10^3/uL Mean Platelet Volume 8.6 6.9-10.8 fL Neutrophils (%) (Auto) 61.3 37.0-80.0 % Lymphocytes (%) (Auto) 16.6 10.0-50.0 % Monocytes (%) (Auto) 15.0 H 0.0-12.0 % Eosinophils (%) (Auto) 6.1 0.0-7.0 % Basophils (%) (Auto) 1.0 0.0-2.0 % Neutrophils # (Auto) 2.3 1.6-8.6 10 ^3/uL Lymphocytes # (Auto) 0.6 0.4-5.4 10 ^3/uL Monocytes # (Auto) 0.6 0-1.3 10 ^3/uL Eosinophils # (Auto) 0.2 0-0.8 10 ^3/uL Basophils # (Auto) 0 0-0.2 10 ^3/uL Nucleated Red Blood Cells 0.2 % Sodium Level 134 L 136-145 mmol/L Potassium Level 4.5 3.5-5.1 mmol/L Chloride Level 98 98-107 mmol/L Carbon Dioxide Level 26 20-31 mmol/L Anion Gap 10 5-15 Blood Urea Nitrogen 29 H 9-23 mg/dL Creatinine 4.86 H 0.550-1.02 mg/dL Glomerular Filtration Rate Calc 10 >90 mL/min BUN/Creatinine Ratio 6.0 L 10.0-20.0 Serum Glucose 94 74-106 mg/dL Calcium Level 8.8 8.7-10.4 mg/dL Total Bilirubin 0.3 0.2-1.0 mg/dL Aspartate Amino Transferase (AST) 50 H 13-40 U/L Alanine Aminotransferase (ALT) 28 7-40 U/L Alkaline Phosphatase 271 H 46-116 U/L B-Type Natriuretic Peptide 1138.42 0-100 pg/mL Total Protein 7.3 5.7-8.2 g/dL Albumin 4.2 3.2-4.8 g/dL CHEST RADIOGRAPH Indication: cp Technique: Single frontal view of the chest was obtained Comparison: XY CHEST PORTABLE on DOS: 07/29/22, XY CHEST PORTABLE on DOS: 07/15/22, CHEST PORTABLE on DOS: 04/22/22 IMPRESSION: Heart is prominent in size. There is moderate pulmonary vascular congestion, increased airspace opacity on the right. Pleural effusions have improved. No pneumothorax. Right dialysis catheter unchanged. Assessment/Plan Assessment/Plan Assessment/Plan: NSTEMI likely type 2 Intractable abdominal pain Intractable nausea and vomiting Thrombocytopenia Hyponatremia JACQUELIN History of ESRD on HD (M/W/F) Elevated troponins flat Labs Flu test COVID test EKG Troponin BNP Chest x-ray UA UDS Lipid TSH Echo CT abdomen and pelvis Last echo on 07/16/2022 EF 60% ACS protocol IV antibiotics-ceftriaxone + azithromycin A.m. labs Antiemetics Pain management Nephro consult Rounding team if suspecting structural disease consult cardiology Diabetes type 2 Hemoglobin A1c ISS and Accu-Cheks Chronic hypertension Continue home medications Chronic hyperlipidemia Continue home medications FEN/PPX Diet Hep-Lock DVT prophylaxis-not indicated patient ambulating PUD prophylaxis-Protonix continue home medication Home medications reconciled Discussed plan of care with patient and nurse Admit to tele Plan discussed with: Patient My Orders Orders - CHASITY RICHARDS [employer] Procedure Category Date Status Time Rapid Influenza A&B LAB 05/27/24 Logged 11:00 Covid19 Antigen Melony LAB 05/27/24 Logged Urinalysis LAB 05/27/24 Logged 11:00 Drug Screen LAB 05/27/24 Logged 11:00 Lipid Panel LAB 05/27/24 Logged 11:00 Thyroid Stimulating LAB 05/27/24 Logged Hormone 11:00 Echo 2d Mode Cardiac US 05/27/24 Logged DOP 11:00 Ct Ab Pel Wo Con-No CT 05/27/24 Logged Oral Or Iv 11:00 Hemoglobin A1c LAB 05/27/24 Logged 11:00 Glucose Blood PHA 05/27/24 Logged (Accu-Chek Comfort 11:30 Insulin R (Human) PHA 05/27/24 Logged (Insulin R) 11:30 Dextrose 50% Syringe PHA 05/27/24 Logged 11:00 Ceftriaxone 1gm/50ml PHA 05/28/24 Logged D5w (Rocephin) 09:00 Ceftriaxone 1gm/50ml PHA 05/27/24 Logged D5w (Rocephin) 11:00 Azithromycin 500mg/ PHA 05/28/24 Logged 250ml (Zithromax 50 10:00 Azithromycin 500mg/ PHA 05/27/24 Logged 250ml (Zithromax 50 11:00 Admit ADMIT 05/27/24 Transmitted 11:00 Code Status CODE 05/27/24 Transmitted 11:00 Drop Clipper [facility] 05/27/24 In Process 11:00 Cardiac DIET 05/27/24 Transmitted Diet-2gna,Lofat,Lochol Lunch Aspirin Tablet PHA 05/28/24 Logged 10:00 Atorvastatin (Lipitor) PHA 05/27/24 Logged 22:00 Acetaminophen Tablet PHA 05/27/24 Logged (Tylenol Tablet) 11:00 Complete Blood Count LAB 05/28/24 Verified 04:00 Comprehensive LAB 05/28/24 Verified Metabolic Panel 04:00 Ondansetron Hcl PHA 05/27/24 Logged (Zofran) 11:00 Electrocardigram EKG 05/28/24 Logged 04:00 Troponin-I Hs LAB 05/27/24 Logged 11:00 Cardiac HARSH 05/27/24 In Process Rehabilitation - Outpa Nitroglycerin PHA 05/27/24 Logged Sublingual (Ntrostat 11:00 Morphine Sulfate PHA 05/27/24 Transmitted Injection 11:00 Stat Ekg For Chest HARSH 05/27/24 In Process Pain 11:00 Notify Md Of Changes HARSH 05/27/24 In Process From Base 11:00 Ell Tutor For HARSH 05/27/24 In Process 24 Hours 11:00 Emergency Dysrhythmia HARSH 05/27/24 In Process Protocol 11:00 Rhythm Strips Once HARSH 05/27/24 In Process Every Shift 11:00 Oxygen By Nasal RT 05/27/24 Transmitted Cannula 11:00 Date of Service: May 27, 2024 Billing Provider: CHASITY RICHARDS Common Visit Codes: 64198-TNPNOKP INP/OBS CARE (HIGH) CHASITY RICHARDS May 27, 2024 12:00
--- NOTE | 2024-05-27 12:06 | DVH ---
Exam: CT CT AB PEL WO CON-NO ORAL OR IV History: abd pain Comparison Study: None. Technique: Multidetector spiral CT of the abdomen and pelvis was performed from lung bases to pubic s ymphysis. Imaging was performed without intravenous contrast. Coronal and sagittal multiplanar refor mats were obtained from the axial data set by the technologist. Radiation Dose : 1. Abdomen/Pelvis: CTDIvol 7.8 mGy, DLP 392.6 mGy*cm. Findings: Evaluation of vasculature and solid organs is limited due to lack of intravenous contrast use. Lung Bases: Right pleural effusion. Interlobular septal thickening in the lower lobes. Visualized po rtions of the heart and pericardium are unremarkable. Liver: The liver is nodular in contour. No focal lesions. Gallbladder and Biliary Tree: The gallbladder is surgically absent. No intrahepatic or extrahepatic biliary ductal dilatation. Spleen: Unremarkable Pancreas: The pancreas is grossly unremarkable. Adrenal Glands: Unremarkable Kidneys: Punctate nonobstructive nephrolithiasis in the left kidney. Bilateral intrarenal vascular ca lcifications. GI tract: The stomach is grossly normal in appearance. No evidence of small bowel wall thickening or abnormal dilatation to suggest bowel obstruction. The colon is unremarkable. The appendix is not vi sualized, however no inflammatory changes in the right lower quadrant to suggest acute appendicitis. Peritoneum/mesentery/retroperitoneum. No evidence of free intraperitoneal air. No ascites. No evidenc e of suspicious lymphadenopathy. Abdominal Wall: Unremarkable. Vasculature: The visualized abdominal aorta is normal in size and caliber. Evaluation of abdominal a nd pelvic vessels is limited due to lack of intravenous contrast. Urinary Bladder: Grossly unremarkable for degree of distention. Pelvic Organs: Unremarkable Musculoskeletal: No aggressive focal bony lesions, acute fractures or dislocation. Intervertebral dis c degeneration at L5-S1. IMPRESSION: 1. No acute abdominal or pelvic findings. 2. Cirrhosis. 3. Large right pleural effusion. Pulmonary edema.
[2024-05-27] MEDS: CALCIUM ACETATE 667 MG CAP PO SCH (12:40)
[2024-05-27] MEDS: SUCRALFATE 1 GM TAB PO SCH (12:40)
[2024-05-27] MEDS: ONDANSETRON HCL 4 MG/2 ML VIAL IV PRN (12:41)
[2024-05-27] MEDS: hydrALAZINE HCL 25 MG TAB PO SCH (14:08)
[2024-05-27 14:40] LABS: COVID19 ANTIGEN SOFIA FIA NEGATIVE (NEGATIVE)
[2024-05-27 18:30] VITALS: PULSE 75; RESP 18; O2SAT 96
[2024-05-27 18:44] VITALS: BP 144/62; PULSE 97; RESP 18; O2SAT 96
[2024-05-27 20:00] VITALS: PULSE 64; PULSE 71; PULSE 84; PULSE 85; RESP 17; O2SAT 100
[2024-05-27 21:00] VITALS: BP 197/56; PULSE 85; RESP 17; TEMP 97.8; O2SAT 100
--- NOTE | 2024-05-27 21:03 | DVHINCON2 ---
Date of service: May 27, 2024 History of Present Illness 59 years old female with medical history of ESRD dialysis hypertension, dyslipidemia diabetes presents with chief complaints chest pain generalized weakness, abdominal pain and shortness patient says she did not miss any dialysis she has history of cholecystectomy, Patient is also bedside in emergency Past Medical History As documented in HPI Past Surgical History As per HPI Allergies: Coded Allergies: NO KNOWN ALLERGIES (Unverified , 07/06/20) Home Meds Active Scripts Clonidine Hydrochloride (Clonidine Hcl) 0.2 Mg Tab, 0.2 MG PO TID for 30 Days, #90 TAB Prov:LUI WAITE MD 07/31/22 Doxycycline Monohydrate (Doxycycline Monohydrate) 100 Mg Cap, 1 CAP PO BID for 10 Days, #28 CAP Prov:LUI WAITE MD 07/31/22 Calcium Acetate (PHOSLO CAPSULE) 667 Mg Cp, 1 CAP PO TID, #90 CAP 5 Refills Prov:MARA POWERS MD 08/10/21 Levofloxacin (Levaquin) 500 Mg Tab, 500 MG PO DAILY, #10 TAB Prov:MARA POWERS MD 08/10/21 Metronidazole (Flagyl) 500 Mg Tab, 500 MG PO TID, #30 TAB Prov:MARA POWERS MD 08/10/21 Sucralfate (CARAFATE) 1 Gm Tab, 1 GM PO Q6HR for 14 Days, #56 TAB Prov:MARA POWERS MD 08/10/21 Pantoprazole Sodium Sesquihydr (Pantoprazole Sodium) 40 Mg Tab, 40 MG PO BID, #60 TAB Prov:MARA POWERS MD 08/10/21 Hydromorphone Hcl (Dilaudid) 2 Mg Tab, 1 TAB PO TID PRN, #20 TAB Prov:MARA POWERS MD 08/10/21 Reported Medications Isosorbide Dinitrate (Isosorbide Dinitrate) 5 Mg Tab, 1 TAB PO TID 05/27/24 Gabapentin (Gabapentin) 100 Mg Cap, 1 CAP PO TID 05/27/24 Dorzolamide-Timolol (Dorzolamide Hcl/Timolol M) 1 Ml Violeta, 1 DROP OP DAILY 05/27/24 Levothyroxine Sodium (Levothyroxine Sodium) 50 Mcg Tab, 1 TAB PO DAILY 07/30/22 Amlodipine Besylate (Amlodipine Besylate) 5 Mg Tab, 2 TAB PO DAILY 07/30/22 Hydralazine HCl (Hydralazine HCl) 25 Mg Tab, 1 TAB PO TID 07/30/22 Glipizide (Glipizide) 10 Mg Tab, 10 MG PO BID for 30 Days, MG 07/29/21 Aspirin (Aspirin) 81 Mg Chw, 81 MG PO DAILY, TAB.CHEW 07/29/21 Clonidine Hydrochloride (Clonidine Hcl) 0.1 Mg Tab, 0.1 MG PO BID for 30 Days, MG 07/29/21 Losartan Potassium (Losartan Potassium) 100 Mg Tab, 100 MG PO DAILY for 30 Days, MG 07/29/21 Atorvastatin Calcium (Lipitor) 20 Mg Tab, 20 MG PO DAILY, TAB 07/29/21 Discontinued Reported Medications Metoprolol Succinate (Metoprolol Succinate Er) 50 Mg Tab, 50 MG PO DAILY, TAB 07/29/21 Insulin Glargine (Basaglar Kwikpen) 100 Unit/Ml Inj, 20 UNIT SC, INJ 07/29/21 Current Medications Current Medications Medications (Trade) Dose Ordered Sig/Eduardo Route PRN Reason Start Time Stop Time Status Last Admin Diagnostic Test (Pha) (Accu-Chek Comfort Curve T) 1 strip ACHS 05/27/24 11:30 05/27/24 17:00 Insulin Human Regular (InsuLIN R) ACHS SC 05/27/24 11:30 05/27/24 17:31 Dextrose 50 ml UD PRN IV Blood Sugar LESS THAN 60 05/27/24 11:00 Ceftriaxone Sodium 50 ml @ 100 mls/hr DAILY@09 IV 05/28/24 09:00 Azithromycin 250 ml @ 125 mls/hr DAILY IV 05/28/24 10:00 Aspirin 81 mg DAILY PO 05/28/24 10:00 05/27/24 12:49 DC Atorvastatin Calcium (Lipitor) 40 mg HS PO 05/27/24 22:00 Acetaminophen (Tylenol Tablet) 650 mg Q6HP PRN PO MILD PAIN (1-3 PAIN SCALE) 05/27/24 11:00 Ondansetron HCl (Zofran) 4 mg Q4HP PRN IV NAUSEA / VOMITING 05/27/24 11:00 05/27/24 12:41 Nitroglycerin (Ntrostat Sublingual) 0.4 mg Q5MINP PRN SL FOR CHEST PAIN 05/27/24 11:00 Morphine Sulfate 2 mg Q30M PRN IV FOR CHEST PAIN 05/27/24 11:00 Amlodipine Besylate (Norvasc Tablet) 10 mg DAILY PO 05/28/24 10:00 Atorvastatin Calcium (Lipitor) 20 mg HS PO 05/28/24 22:00 05/27/24 12:49 DC Calcium Acetate (Phoslo Capsule) 667 mg TIDWM PO 05/27/24 12:27 05/27/24 17:32 Clonidine HCl (Catapres Tablet) 0.1 mg BID PO 05/27/24 22:00 Hydralazine HCl (Apresoline Tablet) 25 mg TID PO 05/27/24 14:00 05/27/24 14:08 Levothyroxine Sodium (Synthroid Tablet) 50 mcg QAM PO 05/28/24 07:00 Metoprolol Succinate (Toprol Xl) 50 mg DAILY PO 05/28/24 10:00 Pantoprazole Sodium (Protonix Tablet) 40 mg BID PO 05/27/24 22:00 Sucralfate (Carafate Tab) 1 gm ACHS PO 05/27/24 12:26 05/27/24 17:31 Aspirin 81 mg DAILY PO 05/28/24 10:00 Losartan Potassium (Cozaar Tablet) 100 mg DAILY PO 05/28/24 10:00 Family History: FH: diabetes mellitus G8 MOTHER G8 FATHER Review of Systems As per HPI H&P Exam Vital Signs/I&O Vital Sign Date Time Temp Pulse Resp B/P (MAP) Pulse Ox O2 Delivery O2 Flow Rate FiO2 05/27/24 18:44 97 18 144/62 (89) 96 05/27/24 18:30 Nasal Cannula* 2 28 05/27/24 07:45 97.7 97.7 Physical Exam General-not in any distress HEENT-normocephalic, no icterus, no pallor, neck supple Respiratory-fair air entry bilateral, [id number] heard, no murmurs appreciated Abdominal-soft, nontender, nondistended Musculoskeletal-no pedal edema, no calf tenderness Genitourinary-deferred Neuro-awake alert oriented x3, Psychiatric-not agitated, cooperative, Labs/Diagnostic Data Labs/Diagnostic Data Laboratory Tests Test 05/27/24 17:20 05/27/24 14:11 05/27/24 12:27 05/27/24 11:46 Range/Units POC Glucose 225 H 119 H 103 70-106 mg/dl SARS-CoV-2 Antigen (Rapid) Negative NEGATIVE Test 05/27/24 09:07 05/27/24 08:44 05/27/24 06:28 05/27/24 05:18 Range/Units POC Glucose 96 70-106 mg/dl Troponin I High Sensitivity 114 *H 116 *H 113 *H </=34 ng/L Triglycerides Level 62 < 150 mg/dL Cholesterol Level 154 < 200 mg/dL LDL Cholesterol 87 < 100 mg/dL HDL Cholesterol 52 40-59 mg/dL Thyroid Stimulating Hormone (TSH) 1.45 0.55-4.78 uIU/mL White Blood Count 3.8 L 4.4-10.8 10^3/uL Red Blood Count 3.95 L 4.0-5.20 10^6/uL Hemoglobin 12.6 12.2-16.2 g/dL Hematocrit 37.4 36.0-46.0 % Mean Corpuscular Volume 94.5 80.0-100.0 fL Mean Corpuscular Hemoglobin 31.8 28.0-32.0 pg Mean Corpuscular Hemoglobin Concent 33.6 32.0-36.0 g/dL Red Cell Distribution Width 16.7 H 11.8-14.3 % Platelet Count 95 L 140-450 10^3/uL Mean Platelet Volume 8.6 6.9-10.8 fL Neutrophils (%) (Auto) 61.3 37.0-80.0 % Lymphocytes (%) (Auto) 16.6 10.0-50.0 % Monocytes (%) (Auto) 15.0 H 0.0-12.0 % Eosinophils (%) (Auto) 6.1 0.0-7.0 % Basophils (%) (Auto) 1.0 0.0-2.0 % Neutrophils # (Auto) 2.3 1.6-8.6 10 ^3/uL Lymphocytes # (Auto) 0.6 0.4-5.4 10 ^3/uL Monocytes # (Auto) 0.6 0-1.3 10 ^3/uL Eosinophils # (Auto) 0.2 0-0.8 10 ^3/uL Basophils # (Auto) 0 0-0.2 10 ^3/uL Nucleated Red Blood Cells 0.2 % Sodium Level 134 L 136-145 mmol/L Potassium Level 4.5 3.5-5.1 mmol/L Chloride Level 98 98-107 mmol/L Carbon Dioxide Level 26 20-31 mmol/L Anion Gap 10 5-15 Blood Urea Nitrogen 29 H 9-23 mg/dL Creatinine 4.86 H 0.550-1.02 mg/dL Glomerular Filtration Rate Calc 10 >90 mL/min BUN/Creatinine Ratio 6.0 L 10.0-20.0 Serum Glucose 94 74-106 mg/dL Hemoglobin A1c 5.7 <5.7 % A1C Calcium Level 8.8 8.7-10.4 mg/dL Total Bilirubin 0.3 0.2-1.0 mg/dL Aspartate Amino Transferase (AST) 50 H 13-40 U/L Alanine Aminotransferase (ALT) 28 7-40 U/L Alkaline Phosphatase 271 H 46-116 U/L B-Type Natriuretic Peptide 1138.42 0-100 pg/mL Total Protein 7.3 5.7-8.2 g/dL Albumin 4.2 3.2-4.8 g/dL Assessment ESRD on hemodialysis Hypertension urgency pleural effusion Pulmonary edema Cirrhosis Recommendations We will arrange dialysis tomorrow UF as tolerated Thoracocentesis We will follow closely Plan discussed with: Patient, Spouse JENNIFER DE LA CRUZ MD May 27, 2024 21:03
[2024-05-27] MEDS: PANTOPRAZOLE 40 MG TAB PO SCH (22:00)
[2024-05-27] MEDS: ATORVASTATIN 20 MG TAB PO SCH (22:54)
[2024-05-27] MEDS: cloNIDine HCL 0.1 MG TAB PO SCH (22:54)
[2024-05-28] VITALS (10 sets, daily range): BP systolic 120–175; BP diastolic 35–77; PULSE 65–84; RESP 15–20; TEMP 97.8–98.9; O2SAT 95–100
--- NOTE | 2024-05-28 01:07 | DVHSR ---
APPROVED REPORT EXAM: LIMITED Two-dimensional and M-mode echocardiogram with Doppler and color Doppler. Blood Pressure: 184/64 mmHg INDICATION Chest Pain RISK FACTORS Height: 5' 6", Weight: 160 DIMENSIONS LVDd4.4 (3.8-5.7cm)LA (2D)4.0 (1.9-4.0cm)Aortic Root3.1 (2.0-3.7cm) LVDs3.4 (2.5-4.0cm)LA (MM) (1.9-4.0cm)Aortic Cusp Exc1.5 (1.5-2.0cm) EF (%) 46.0 (55-70%)Rt. Atrium4.0 (1.9-4.0cm)Asc. Aorta cm IVSd1.4 (0.7-1.1cm)RV (D) (1.8-2.4cm) PWd1.4 (0.7-1.1cm) Mitral Valve MitralMitral Stenosis E wave1.20m/sMV Mean GR.mmHg A wave0.90m/sMV Peak GR.mmHg E/A ratio1.32D MVAcm2 Aortic Valve Aortic ValveAortic Stenosis V10.70m/Stephanie Mean GR.3mmHg V21.10m/Stephanie Peak GR.6mmHg LVOT Diameter1.7 (1.8-2.4cm)Doppler AVA1.44cm2 AI P 1/2 Uocm622.87ms Pulmonic Valve V20.80m/s Conclusion LV EJECTION FRACTION IS 45% BORDERLINE LOW LV EJECTION FRACTION NORMAL VALVES NO EFFSION
[2024-05-28] MEDS: LEVOTHYROXINE SODIUM 50 MCG TAB PO SCH (05:59)
[2024-05-28 06:02] LABS: Basophils # (auto) 0 10 ^3/uL (0-0.2); Basophils % (auto) 0.9 % (0.0-2.0); Eosinophils # (auto) 0.1 10 ^3/uL (0-0.8); Eosinophils % (auto) 2.3 % (0.0-7.0); Hematocrit 32.8 % (36.0-46.0); Hemoglobin 11.1 g/dL (12.2-16.2); Lymphocytes # (auto) 0.5 10 ^3/uL (0.4-5.4); Lymphocytes % (auto) 19.8 % (10.0-50.0); Mean Corpuscular Hemoglobin 31.9 pg (28.0-32.0); Mean Corpuscular Hgb Conc. 33.9 g/dL (32.0-36.0); Mean Corpuscular Volume 94.2 fL (80.0-100.0); Monocytes # (auto) 0.5 10 ^3/uL (0-1.3); Monocytes % (auto) 16.5 % (0.0-12.0); Neutrophils # (auto) 1.7 10 ^3/uL (1.6-8.6); Neutrophils % (auto) 60.5 % (37.0-80.0); Platelet Count (auto) 97 10^3/uL (140-450); Red Blood Cells 3.49 10^6/uL (4.0-5.20); Red Cell Distribution Width 16.4 % (11.8-14.3); White Blood Cell 2.8 10^3/uL (4.4-10.8)
[2024-05-28 06:15] LABS: Alanine Aminotransferase 24 U/L (7-40); Anion Gap 11 (5-15); BUN/Creatinine Ratio 8.1 (10.0-20.0); Calcium 8.8 mg/dL (8.7-10.4); Carbon Dioxide 27 mmol/L (20-31)
[2024-05-28 06:16] LABS: Albumin 3.7 g/dL (3.2-4.8); Aspartate Aminotransferase 31 U/L (13-40); Total Protein 6.3 g/dL (5.7-8.2)
[2024-05-28 06:17] LABS: Alkaline Phosphatase 213 U/L (46-116); Bilirubin, Total 0.2 mg/dL (0.2-1.0); Blood Urea Nitrogen 53 mg/dL (9-23); Chloride 97 mmol/L (98-107); Glucose 108 mg/dL (74-106); Sodium 135 mmol/L (136-145)
[2024-05-28] MEDS: cefTRIAXone 1GM/50ML D5W 50 ML IV SCH (07:43)
[2024-05-28] MEDS: amLODIPine BESYLATE 5 MG TAB PO SCH (07:44)
[2024-05-28] MEDS: LOSARTAN POTASSIUM 50 MG TAB PO SCH (07:45)
[2024-05-28] MEDS: METOPROLOL SUCCINATE XL 50 MG TAB PO SCH (08:02)
[2024-05-28] MEDS: ASPirin 81 mg TAB PO SCH (08:02)
[2024-05-28] MEDS: AZITHROMYCIN 500MG/ 250ML 250 ML IV SCH (09:18)
[2024-05-28] MEDS ORDERED: ASPirin 81 mg TAB PO SCH (10:00)
--- NOTE | 2024-05-28 11:05 | DVHPN2 ---
Progress Note Date Seen: May 28, 2024 Medical Necessity Reason Pt with a Central, PICC or Fol: No Subjective Patient reports: No new complaints Review of Systems: Deferred Objective vital signs Vital Sign Date Time Temp Pulse Resp B/P (MAP) Pulse Ox O2 Delivery O2 Flow Rate FiO2 05/28/24 08:00 84 18 Nasal Cannula* 2 28 05/28/24 07:56 165/67 (99) 05/28/24 05:00 97.8 97 97.8 Total Intake and Output 05/27/24 05/27/24 05/28/24 15:00 23:00 07:00 Intake Total 300 ml 250 ml 0 ml Balance 300 ml 250 ml 0 ml medications Current Medications Medications Dose Ordered Sig/Eduardo Route Start Time Stop Time Status Last Admin Dose Admin Diagnostic Test (Pha) 1 strip ACHS 05/27/24 11:30 05/28/24 06:00 1 STRIP Insulin Human Regular ACHS SC 05/27/24 11:30 05/27/24 17:31 4 UNITS Dextrose 50 ml UD PRN IV 05/27/24 11:00 Ceftriaxone Sodium 50 ml @ 100 mls/hr DAILY@09 IV 05/28/24 09:00 05/28/24 07:43 100 MLS/HR Azithromycin 250 ml @ 125 mls/hr DAILY IV 05/28/24 10:00 05/28/24 09:18 125 MLS/HR Atorvastatin Calcium 40 mg HS PO 05/27/24 22:00 05/27/24 22:54 40 MG Acetaminophen 650 mg Q6HP PRN PO 05/27/24 11:00 Ondansetron HCl 4 mg Q4HP PRN IV 05/27/24 11:00 05/27/24 12:41 4 MG Nitroglycerin 0.4 mg Q5MINP PRN SL 05/27/24 11:00 Morphine Sulfate 2 mg Q30M PRN IV 05/27/24 11:00 Amlodipine Besylate 10 mg DAILY PO 05/28/24 10:00 05/28/24 07:44 10 MG Calcium Acetate 667 mg TIDWM PO 05/27/24 12:27 05/28/24 07:46 667 MG Clonidine HCl 0.1 mg BID PO 05/27/24 22:00 05/28/24 07:45 0.1 MG Hydralazine HCl 25 mg TID PO 05/27/24 14:00 05/28/24 05:59 25 MG Levothyroxine Sodium 50 mcg QAM PO 05/28/24 07:00 05/28/24 05:59 50 MCG Metoprolol Succinate 50 mg DAILY PO 05/28/24 10:00 Pantoprazole Sodium 40 mg BID PO 05/27/24 22:00 05/28/24 07:46 40 MG Sucralfate 1 gm ACHS PO 05/27/24 12:26 05/28/24 05:59 1 GM Aspirin 81 mg DAILY PO 05/28/24 10:00 Losartan Potassium 100 mg DAILY PO 05/28/24 10:00 05/28/24 07:45 100 MG Examination: GENERAL:Normal, HEENT:Normal, NECK:Normal, LUNGS:Abnormal, CVS:Normal, ABDOMEN:Normal, MSK:Normal, SKIN:Normal, NEURO:Normal, :Normal laboratory and microbiology Laboratory Tests 05/28/24 05:24 Test 05/28/24 05:24 Range/Units Serum Glucose 108 H 74-106 mg/dL Problem List/Assessment/Plan Problem List/Assessment/Plan ESRD on hemodialysis Hypertension urgency pleural effusion Pulmonary edema Cirrhosis Recommendations dialysis today UF as tolerated Thoracocentesis We will follow closely Plan discussed with: Patient My Orders My Orders Orders - JENNIFER DE LA CRUZ MD Procedure Category Date Status Time Hemodialysis Orders ORDERS 05/28/24 Transmitted 07:00 Dialysis Nursing [facility] 05/28/24 In Process Message 07:00 Document Fluid Input [facility] 05/28/24 In Process And Outpu 07:00 JENNIFER DE LA CRUZ MD May 28, 2024 11:05
[2024-05-28 13:40] LABS: Rapid Influenza A Negative (Negative); Rapid Influenza B Negative (Negative)
--- NOTE | 2024-05-28 14:08 | DVHPN2 ---
Reviewed: Care Plan, H&P, Labs, Medications, Previous Orders, Radiology Changes from previous H/P or p: No Changes Eyes: No Pain, No Vision change, No Conjunctivae inflammation, No Eyelid inflammation, No Other, No Redness ENT: No Ear pain, No Ear discharge, No Nose pain, No Nose discharge, No Nose congestion, No Mouth pain, No Mouth swelling, No Throat pain, No Throat swelling, No Other Cardiovascular: Chest Pain; No Palpitations, No Orthopnea, No Paroxysmal Noc. Dyspnea, No Edema, No Lt Headedness, No Other Respiratory: Cough; No Dry, No Shortness of breath, No SOB with excertion, No Wheezing, No Hemoptysis, No Pleuritic Pain; Sputum; No Other Gastrointestinal: Nausea, Vomiting, Abdominal Pain; No Diarrhea, No Constipation, No Melena, No Hematochezia, No Other Genitourinary: No Dysuria, No Frequency, No Incontinence, No Hematuria, No Retention, No Other Musculoskeletal: No other, No neck pain, No shoulder pain, No arm pain, No back pain, No hand pain, No leg pain, No foot pain Skin: No Rash, No Lesions, No Jaundice, No Bruising; Other (Old scars on lower extremity bilateral) Objective Vitals Vital Signs Date Time Temp Pulse Resp B/P (MAP) Pulse Ox O2 Delivery O2 Flow Rate FiO2 05/28/24 12:53 131/49 05/28/24 09:00 98.1 74 18 98 98.1 05/28/24 08:00 Nasal Cannula* 2 28 Intake/Output Intake and Output 05/28/24 07:00 Intake Total 550 ml Balance 550 ml Intake Oral 250 ml IV Total 300 ml Medications Current Medications Medications Dose Ordered Sig/Eduardo Route Start Time Stop Time Status Last Admin Dose Admin Diagnostic Test (Pha) 1 strip ACHS 05/27/24 11:30 05/28/24 11:17 1 STRIP Insulin Human Regular ACHS SC 05/27/24 11:30 05/27/24 17:31 4 UNITS Dextrose 50 ml UD PRN IV 05/27/24 11:00 Ceftriaxone Sodium 50 ml @ 100 mls/hr DAILY@09 IV 05/28/24 09:00 05/28/24 07:43 100 MLS/HR Azithromycin 250 ml @ 125 mls/hr DAILY IV 05/28/24 10:00 05/28/24 09:18 125 MLS/HR Atorvastatin Calcium 40 mg HS PO 05/27/24 22:00 05/27/24 22:54 40 MG Acetaminophen 650 mg Q6HP PRN PO 05/27/24 11:00 Ondansetron HCl 4 mg Q4HP PRN IV 05/27/24 11:00 05/27/24 12:41 4 MG Nitroglycerin 0.4 mg Q5MINP PRN SL 05/27/24 11:00 Morphine Sulfate 2 mg Q30M PRN IV 05/27/24 11:00 Amlodipine Besylate 10 mg DAILY PO 05/28/24 10:00 05/28/24 07:44 10 MG Calcium Acetate 667 mg TIDWM PO 05/27/24 12:27 05/28/24 11:22 667 MG Clonidine HCl 0.1 mg BID PO 05/27/24 22:00 05/28/24 07:45 0.1 MG Hydralazine HCl 25 mg TID PO 05/27/24 14:00 05/28/24 12:53 25 MG Levothyroxine Sodium 50 mcg QAM PO 05/28/24 07:00 05/28/24 05:59 50 MCG Metoprolol Succinate 50 mg DAILY PO 05/28/24 10:00 Pantoprazole Sodium 40 mg BID PO 05/27/24 22:00 05/28/24 07:46 40 MG Sucralfate 1 gm ACHS PO 05/27/24 12:26 05/28/24 11:22 1 GM Aspirin 81 mg DAILY PO 05/28/24 10:00 Losartan Potassium 100 mg DAILY PO 05/28/24 10:00 05/28/24 07:45 100 MG Laboratory Results Laboratory Tests 05/28/24 05:24 Chemistry Test 05/28/24 05:24 Albumin 3.7 g/dL (3.2-4.8) Calcium Level 8.8 mg/dL (8.7-10.4) Total Protein 6.3 g/dL (5.7-8.2) LFT Test 05/28/24 05:24 Alanine Aminotransferase (ALT) 24 U/L (7-40) Alkaline Phosphatase 213 U/L (46-116) H Aspartate Amino Transferase (AST) 31 U/L (13-40) Total Bilirubin 0.2 mg/dL (0.2-1.0) Labs and/or images reviewed: Labs reviewed by me, Image(s) reviewed by me Assessment/Plan Assessment/Plan Acute chest pain rule out coronary artery disease: Troponin 113 treatment per ACS protocol, consult for Dr.M Barth Acute hypoxic respiratory failure: Oxygen by nasal cannula Acute right pleural effusion: Consult for Dr. Mcmahon Bilateral community-acquired pneumonia: Rocephin azithromycin ESRD on hemodialysis Nephrology consult appreciated Cirrhosis of liver Diabetes Hypertension Hypercholesterolemia Hypertensive emergency blood pressure 190/63 Flu test negative Sunshine test negative Acute CHF exacerbation BNP 1138 : Lasix cardiology consult Time Spent 70 minutes Advanced care planning time 20 minutes Patient is full code Plan discussed with: Patient My Orders Orders - MARA POWERS MD Procedure Category Date Status Time * Cardiology Consult CONS 05/28/24 Transmitted 13:07 *Consult CONS 05/28/24 Transmitted / 13:07 Date of Service: May 28, 2024 Billing Provider: MARA POWERS MD Common Visit Codes: [id number] CARE 30-74 MIN MARA POWERS MD May 28, 2024 14:08
[2024-05-28] MEDS: ceFAZolin 2 GM/D5W100ml 100 ML IV ONE (14:14)
[2024-05-28] MEDS: SODIUM CHL 0.9% 1000 ML BAG XX ONE (15:30)
[2024-05-28] MEDS: HYDROmorphone HCL 2 MG/ML VL/or syr ONE (16:59)
--- NOTE | 2024-05-28 21:45 | DVHINCON2 ---
Date of service: May 28, [address] Janae Powers Reason for Consultation Acute hypoxic respiratory failure and pleural effusion History of Present Illness A 59-year-old woman with a past medical history of hypertension, hyperlipidemia, diabetes, end-stage renal disease on HD (M/W/F) who presented to ED on 05/27/24 for chest pain, cough w/ phlegm, general weakness, syncope, increased blood pressure, nausea, vomiting, and headache x3 weeks. Patient reported chest pain was intermittent, 8/10, nonradiating. Patient also c/o abdominal pain and headache, 10/10, throbbing and constant. Denied any recent sick contacts or recent illnesses, recent ingestion of spoiled food, diarrhea, shortness of breath, fever, chills, lightheadedness, or dizziness. She gets dialysis in [place], last HD day prior to presentation. Patient was admitted for further care and pulmonary consultation is requested for evaluation and management of acute hypoxic respiratory failure and pleural effusion. Review of Systems: 14-point review of systems negative unless otherwise noted above. Past Medical History: Hypertension, hyperlipidemia, diabetes, end-stage renal disease on HD (M/W/F) Past Surgical History: Cholecystectomy, , Tubal Ligation Medications: Reviewed. Allergies: No known drug allergies. Family History: Significant for diabetes. No family history of premature CAD. No family history of lung disorders. Social History: Nonsmoker. No alcohol or illicit drug use. Family History: FH: diabetes mellitus G8 MOTHER G8 FATHER Allergies: Coded Allergies: NO KNOWN ALLERGIES (Unverified , 07/06/20) Home Meds Active Scripts Doxycycline Monohydrate (Doxycycline Monohydrate) 100 Mg Cap, 1 CAP PO BID for 10 Days, #28 CAP Prov:LUI WAITE MD 07/31/22 Calcium Acetate (PHOSLO CAPSULE) 667 Mg Cp, 1 CAP PO TID, #90 CAP 5 Refills Prov:MARA POWERS MD 08/10/21 Levofloxacin (Levaquin) 500 Mg Tab, 500 MG PO DAILY, #10 TAB Prov:MARA POWERS MD 08/10/21 Metronidazole (Flagyl) 500 Mg Tab, 500 MG PO TID, #30 TAB Prov:MARA POWERS MD 08/10/21 Sucralfate (CARAFATE) 1 Gm Tab, 1 GM PO Q6HR for 14 Days, #56 TAB Prov:MARA POWERS MD 08/10/21 Pantoprazole Sodium Sesquihydr (Pantoprazole Sodium) 40 Mg Tab, 40 MG PO BID, #60 TAB Prov:MARA POWERS MD 08/10/21 Reported Medications Nifedipine (Nifedipine Er) 60 Mg Tab, 1 TAB PO BID for 90 Days, #180 05/29/24 Paroxetine (PAXIL TABLET) 20 Mg Tb, 10 MG PO DAILY for 30 Days, #30 05/29/24 Metoprolol Tartrate (LOPRESSOR TABLET) 50 Mg Tb, 1 TAB PO DAILY for 60 Days, #60 05/29/24 Alendronate Sodium (Alendronate Sodium) 70 Mg Tab, 1 TAB PO QWEEKLY for 84 Days, #12 05/29/24 Levothyroxine Sodium (Levothyroxine Sodium) 100 Mcg Cap, 1 TAB PO QAM for 60 Days, #60 05/29/24 Hydralazine Hcl (Hydralazine Hcl) 50 Mg Tab, 1 TAB PO TID for 60 Days, #180 05/29/24 Isosorbide Dinitrate (Isosorbide Dinitrate) 5 Mg Tab, 1 TAB PO TID for 30 Days, #90 05/27/24 Gabapentin (Gabapentin) 100 Mg Cap, 1 CAP PO TID 05/27/24 Dorzolamide-Timolol (Dorzolamide Hcl/Timolol M) 1 Ml Violeta, 1 DROP OP DAILY 05/27/24 Amlodipine Besylate (Amlodipine Besylate) 5 Mg Tab, 2 TAB PO DAILY 07/30/22 Glipizide (Glipizide) 10 Mg Tab, 10 MG PO BID for 30 Days, MG 07/29/21 Aspirin (Aspirin) 81 Mg Chw, 81 MG PO DAILY, TAB.CHEW 07/29/21 Clonidine Hydrochloride (Clonidine Hcl) 0.1 Mg Tab, 0.1 MG PO BID for 30 Days, MG 07/29/21 Losartan Potassium (Losartan Potassium) 100 Mg Tab, 100 MG PO DAILY for 30 Days, MG 07/29/21 Atorvastatin Calcium (Lipitor) 20 Mg Tab, 20 MG PO DAILY, TAB 07/29/21 Discontinued Reported Medications Levothyroxine Sodium (Levothyroxine Sodium) 50 Mcg Tab, 1 TAB PO DAILY 07/30/22 Hydralazine HCl (Hydralazine HCl) 25 Mg Tab, 1 TAB PO TID 07/30/22 Metoprolol Succinate (Metoprolol Succinate Er) 50 Mg Tab, 50 MG PO DAILY, TAB 07/29/21 Insulin Glargine (Basaglar Kwikpen) 100 Unit/Ml Inj, 20 UNIT SC, INJ 07/29/21 Current Medications Current Medications Medications (Trade) Dose Ordered Sig/Eduardo Route PRN Reason Start Time Stop Time Status Last Admin Ceftriaxone Sodium 50 ml @ 100 mls/hr DAILY@09 IV 05/28/24 09:00 05/28/24 07:43 Azithromycin 250 ml @ 125 mls/hr DAILY IV 05/28/24 10:00 05/28/24 09:18 Aspirin 81 mg DAILY PO 05/28/24 10:00 05/27/24 12:49 DC Atorvastatin Calcium (Lipitor) 40 mg HS PO 05/27/24 22:00 05/27/24 22:54 Amlodipine Besylate (Norvasc Tablet) 10 mg DAILY PO 05/28/24 10:00 05/28/24 07:44 Atorvastatin Calcium (Lipitor) 20 mg HS PO 05/28/24 22:00 05/27/24 12:49 DC Clonidine HCl (Catapres Tablet) 0.1 mg BID PO 05/27/24 22:00 05/28/24 07:45 Levothyroxine Sodium (Synthroid Tablet) 50 mcg QAM PO 05/28/24 07:00 05/28/24 05:59 Metoprolol Succinate (Toprol Xl) 50 mg DAILY PO 05/28/24 10:00 Pantoprazole Sodium (Protonix Tablet) 40 mg BID PO 05/27/24 22:00 05/28/24 07:46 Aspirin 81 mg DAILY PO 05/28/24 10:00 Losartan Potassium (Cozaar Tablet) 100 mg DAILY PO 05/28/24 10:00 05/28/24 07:45 Vital Signs Vital Signs Date Time Temp Pulse Resp B/P (MAP) Pulse Ox O2 Delivery O2 Flow Rate FiO2 05/28/24 20:00 84 18 Nasal Cannula* 2 28 05/28/24 17:00 98.1 147/49 (81) 100 98.1 Physical Exam Gen.: Patient lying in bed in no apparent distress. On supplemental oxygen. Head: Normocephalic, atraumatic. Eyes: EOMI/PERRLA. Ears: Normal hearing. Normal anatomy. Neck/trachea: Trachea midline, supple. Nose: Normal external anatomy. Mouth: Moist mucous membranes. Chest: Decreased air entry bilaterally. No wheezing or rhonchi. Cardiovascular: Positive S1, positive S2. Regular rate and rhythm. Abdomen: Positive bowel sounds in all 4 quadrants. Soft, non-tender, non- distended. : Deferred. Rectal: Deferred. Skin: Warm, dry. Intact. Extremities: 2+ radial pulses bilaterally. No lower extremity edema. Neuro: Awake, alert, oriented x3. No gross motor or sensory deficits. Cranial nerves II through XII intact. Gait not assessed. Labs/Diagnostic Data Labs Test 05/28/24 16:34 05/28/24 12:58 05/28/24 05:24 05/27/24 14:11 Range/Units POC Glucose 144 H 70-106 mg/dl Influenza Type A Antigen Negative Negative Influenza Type B Antigen Negative Negative White Blood Count 2.8 L 4.4-10.8 10^3/uL Red Blood Count 3.49 L 4.0-5.20 10^6/uL Hemoglobin 11.1 L 12.2-16.2 g/dL Hematocrit 32.8 #L 36.0-46.0 % Mean Corpuscular Volume 94.2 80.0-100.0 fL Mean Corpuscular Hemoglobin 31.9 28.0-32.0 pg Mean Corpuscular Hemoglobin Concent 33.9 32.0-36.0 g/dL Red Cell Distribution Width 16.4 H 11.8-14.3 % Platelet Count 97 L 140-450 10^3/uL Mean Platelet Volume 8.5 6.9-10.8 fL Neutrophils (%) (Auto) 60.5 37.0-80.0 % Lymphocytes (%) (Auto) 19.8 10.0-50.0 % Monocytes (%) (Auto) 16.5 H 0.0-12.0 % Eosinophils (%) (Auto) 2.3 0.0-7.0 % Basophils (%) (Auto) 0.9 0.0-2.0 % Neutrophils # (Auto) 1.7 1.6-8.6 10 ^3/uL Lymphocytes # (Auto) 0.5 0.4-5.4 10 ^3/uL Monocytes # (Auto) 0.5 0-1.3 10 ^3/uL Eosinophils # (Auto) 0.1 0-0.8 10 ^3/uL Basophils # (Auto) 0 0-0.2 10 ^3/uL Nucleated Red Blood Cells 0.0 % Sodium Level 135 L 136-145 mmol/L Potassium Level 5.0 3.5-5.1 mmol/L Chloride Level 97 L 98-107 mmol/L Carbon Dioxide Level 27 20-31 mmol/L Anion Gap 11 5-15 Blood Urea Nitrogen 53 #H 9-23 mg/dL Creatinine 6.55 #H 0.550-1.02 mg/dL Glomerular Filtration Rate Calc 7 >90 mL/min BUN/Creatinine Ratio 8.1 L 10.0-20.0 Serum Glucose 108 H 74-106 mg/dL Calcium Level 8.8 8.7-10.4 mg/dL Total Bilirubin 0.2 0.2-1.0 mg/dL Aspartate Amino Transferase (AST) 31 13-40 U/L Alanine Aminotransferase (ALT) 24 7-40 U/L Alkaline Phosphatase 213 H 46-116 U/L Total Protein 6.3 5.7-8.2 g/dL Albumin 3.7 3.2-4.8 g/dL SARS-CoV-2 Antigen (Rapid) Negative NEGATIVE Test 05/27/24 08:44 05/27/24 05:18 Range/Units Troponin I High Sensitivity 114 *H </=34 ng/L Triglycerides Level 62 < 150 mg/dL Cholesterol Level 154 < 200 mg/dL LDL Cholesterol 87 < 100 mg/dL HDL Cholesterol 52 40-59 mg/dL Thyroid Stimulating Hormone (TSH) 1.45 0.55-4.78 uIU/mL Hemoglobin A1c 5.7 <5.7 % A1C B-Type Natriuretic Peptide 1138.42 0-100 pg/mL Assessment Impression: Acute hypoxic respiratory failure Dependence on supplemental oxygen Right pleural effusion Atelectasis End-stage renal disease, on hemodialysis Non-ST elevation myocardial infarction Elevated troponin Plan: Supplemental oxygen Titrate to keep O2 sats above 92%. Respiratory viral panel negative. CT abd-pelvis on 05/27/24 demonstrated large right pleural effusion and pulmonary edema. Cirrhosis. Obtain chest x-ray in AM to assess for interval changes. Hemodialysis per Nephrology Continue antibiotics Incentive spirometry Antihypertensive medication Accu-Cheks, ISS. Monitor renal function. Monitor electrolytes. Supplement as necessary. Monitor ins and outs. DVT prophylaxis. Prognosis: Poor given patient's multiple co-morbidities. Rest of plan per hospitalist and other consultants. Thank you, Dr Janae Powers, for allowing me to participate in this patient's care. Further recommendations will depend on the patient's clinical course. Please do not hesitate to contact me if you have any questions or concerns. This medical document was created using an electronic medical record system with [employer] dictation system. Although these documentations are being carefully reviewed, there may still be some phonetic and typographical changes. The errors are purely typographical, due to imperfection on the software program, and do not reflect any compromise in the patient's medical care. Plan discussed with: Patient, Other (RN Ty/STABLE HELPER Vasyl/) CHRISTIANNE LAWSON MD May 28, 2024 21:45
[2024-05-28] MEDS ORDERED: ATORVASTATIN 20 MG TAB PO SCH (22:00)
--- NOTE | 2024-05-28 23:04 | DVHINCON2 ---
Date of service: May 28, 2024 Referring Physician Vipul Reason for Consultation Chest pain, CHF exacerbation History of Present Illness This is a 59-year-old female with a PMH f DM, ESRD, High Lipids, HTN, Kidney Stones who was brought in by EMS on 05/27 with a complaint of elevated blood pressure, nausea, vomiting, productive cough, and generalized weakness. Per EMS, patient experienced near-syncopal episode when they arrived on scene. Patients initial BP for EMS was 217/89 and was 190/63 on ER arrival.Patient also in on dialysis and is dialyzed on Wed/Wed/Wed. Troponin 113 > 116 > 114. Chest x-ray showed moderate pulmonary vascular congestion, increased airspace opacity on the right, pleural effusions have improved. CT ABD PEL revealed cirrhosis. Large right pleural effusion. Pulmonary edema. Patient was admitted to the hospital. I am asked to consult on this patient. Family History: FH: diabetes mellitus G8 MOTHER G8 FATHER Allergies: Coded Allergies: NO KNOWN ALLERGIES (Unverified , 07/06/20) Home Meds Active Scripts Clonidine Hydrochloride (Clonidine Hcl) 0.2 Mg Tab, 0.2 MG PO TID for 30 Days, # 90 TAB Prov:LUI WAITE MD 07/31/22 Doxycycline Monohydrate (Doxycycline Monohydrate) 100 Mg Cap, 1 CAP PO BID for 10 Days, #28 CAP Prov:LUI WAITE MD 07/31/22 Calcium Acetate (PHOSLO CAPSULE) 667 Mg Cp, 1 CAP PO TID, #90 CAP 5 Refills Prov:MARA POWERS MD 08/10/21 Levofloxacin (Levaquin) 500 Mg Tab, 500 MG PO DAILY, #10 TAB Prov:MARA POWERS MD 08/10/21 Metronidazole (Flagyl) 500 Mg Tab, 500 MG PO TID, #30 TAB Prov:MARA POWERS MD 08/10/21 Sucralfate (CARAFATE) 1 Gm Tab, 1 GM PO Q6HR for 14 Days, #56 TAB Prov:MARA POWERS MD 08/10/21 Pantoprazole Sodium Sesquihydr (Pantoprazole Sodium) 40 Mg Tab, 40 MG PO BID, #60 TAB Prov:MARA POWERS MD 08/10/21 Hydromorphone Hcl (Dilaudid) 2 Mg Tab, 1 TAB PO TID PRN, #20 TAB Prov:MARA POWERS MD 08/10/21 Reported Medications Isosorbide Dinitrate (Isosorbide Dinitrate) 5 Mg Tab, 1 TAB PO TID 05/27/24 Gabapentin (Gabapentin) 100 Mg Cap, 1 CAP PO TID 05/27/24 Dorzolamide-Timolol (Dorzolamide Hcl/Timolol M) 1 Ml Violeta, 1 DROP OP DAILY 05/27/24 Levothyroxine Sodium (Levothyroxine Sodium) 50 Mcg Tab, 1 TAB PO DAILY 07/30/22 Amlodipine Besylate (Amlodipine Besylate) 5 Mg Tab, 2 TAB PO DAILY 07/30/22 Hydralazine HCl (Hydralazine HCl) 25 Mg Tab, 1 TAB PO TID 07/30/22 Glipizide (Glipizide) 10 Mg Tab, 10 MG PO BID for 30 Days, MG 07/29/21 Aspirin (Aspirin) 81 Mg Chw, 81 MG PO DAILY, TAB.CHEW 07/29/21 Clonidine Hydrochloride (Clonidine Hcl) 0.1 Mg Tab, 0.1 MG PO BID for 30 Days, MG 07/29/21 Losartan Potassium (Losartan Potassium) 100 Mg Tab, 100 MG PO DAILY for 30 Days, MG 07/29/21 Atorvastatin Calcium (Lipitor) 20 Mg Tab, 20 MG PO DAILY, TAB 07/29/21 Discontinued Reported Medications Metoprolol Succinate (Metoprolol Succinate Er) 50 Mg Tab, 50 MG PO DAILY, TAB 07/29/21 Insulin Glargine (Basaglar Kwikpen) 100 Unit/Ml Inj, 20 UNIT SC, INJ 07/29/21 Current Medications Current Medications Medications (Trade) Dose Ordered Sig/Eduardo Route PRN Reason Start Time Stop Time Status Last Admin Ceftriaxone Sodium 50 ml @ 100 mls/hr DAILY@09 IV 05/28/24 09:00 05/28/24 07:43 Azithromycin 250 ml @ 125 mls/hr DAILY IV 05/28/24 10:00 05/28/24 09:18 Aspirin 81 mg DAILY PO 05/28/24 10:00 05/27/24 12:49 DC Atorvastatin Calcium (Lipitor) 40 mg HS PO 05/27/24 22:00 05/27/24 22:54 Amlodipine Besylate (Norvasc Tablet) 10 mg DAILY PO 05/28/24 10:00 05/28/24 07:44 Atorvastatin Calcium (Lipitor) 20 mg HS PO 05/28/24 22:00 05/27/24 12:49 DC Clonidine HCl (Catapres Tablet) 0.1 mg BID PO 05/27/24 22:00 05/28/24 07:45 Levothyroxine Sodium (Synthroid Tablet) 50 mcg QAM PO 05/28/24 07:00 05/28/24 05:59 Metoprolol Succinate (Toprol Xl) 50 mg DAILY PO 05/28/24 10:00 Pantoprazole Sodium (Protonix Tablet) 40 mg BID PO 05/27/24 22:00 05/28/24 07:46 Aspirin 81 mg DAILY PO 05/28/24 10:00 Losartan Potassium (Cozaar Tablet) 100 mg DAILY PO 05/28/24 10:00 05/28/24 07:45 Review of Systems Constitutional: reports: weakness; denies: chills, diaphoresis, fatigue, fever, malaise, sweats, others EENTM: denies: blurred vision, double vision, ear bleeding, ear discharge, ear drainage, ear pain, ear ringing, eye pain, eye redness, hearing loss, mouth pain, mouth swelling, nasal discharge, nose bleeding, nose congestion, nose pain, photophobia, tearing, throat pain, throat swelling, voice changes, others Respiratory: reports: cough; denies: hemoptysis, orthopnea, SOB at rest, shortness of breath, SOB with excertion, stridor, wheezing, others Cardiovascular: reports: others (HYPERTENSION); denies: chest pain, dizzy spells, diaphoresis, Dyspnea on exertion, edema, irregular heart beat, left arm pain, lightheadedness, palpitations, PND, syncope Gastrointestinal: denies: abdomen distended, abdominal pain, blood streaked lucila wels, constipated, diarrhea, dysphagia, difficulty swallowing, hematemesis, melena, nausea, poor appetite, poor fluid intake, rectal bleeding, rectal pain, vomiting, others Genitourinary: denies: abnormal vagina bleeding, burning, dyspareunia, dysuria, flank pain, frequency, hematuria, incontinence, pain, , vagina discharge, urgency, others Neurological: denies: dizziness, fainting, headache, left sided numbness, left sided weakness, numbness, paresthesia, pre-existing deficit, right sided numbness, right sided weakness, seizure, speech problems, tingling, tremors, weakness, others Musculoskeletal: denies: back pain, gout, joint pain, joint swelling, muscle pain, muscle stiffness, neck pain, others Integumetry: denies: bruises, change in color, change in hair/nails, dryness, laceration, lesions, lumps, rash, wounds, others Allergic/Immunocompromised: denies: Difficulty Healing, Frequent Infections, Hives, Itching, others Hematologic/Lymphatic: denies: anemia, blood clots, easy bleeding, easy bruis ing, swollen glands, others Endocrine: denies: excessive hunger, excessive sweating, excessive thirst, exc essive urination, flushing, intolerance to cold, intolerance to heat, unexplained weight gain, unexplained weight loss, others Psychiatric: denies: anxiety, bipolar disorder, depression, hopeless, panic disorder, schizophrenia, sleepless, suicidal, others All Other Systems: Reviewed and Negative Vital Signs Vital Signs Date Time Temp Pulse Resp B/P (MAP) Pulse Ox O2 Delivery O2 Flow Rate FiO2 05/28/24 20:00 84 18 Nasal Cannula* 2 28 05/28/24 17:00 98.1 147/49 (81) 100 98.1 Physical Exam GENERAL: Awake, alert, oriented. LUNGS: Decreased breath sounds. CARDIOVASCULAR: Heart sounds are good. ABDOMEN: Soft. Labs/Diagnostic Data Labs Test 05/28/24 16:34 05/28/24 12:58 05/28/24 05:24 05/27/24 14:11 Range/Units POC Glucose 144 H 70-106 mg/dl Influenza Type A Antigen Negative Negative Influenza Type B Antigen Negative Negative White Blood Count 2.8 L 4.4-10.8 10^3/uL Red Blood Count 3.49 L 4.0-5.20 10^6/uL Hemoglobin 11.1 L 12.2-16.2 g/dL Hematocrit 32.8 #L 36.0-46.0 % Mean Corpuscular Volume 94.2 80.0-100.0 fL Mean Corpuscular Hemoglobin 31.9 28.0-32.0 pg Mean Corpuscular Hemoglobin Concent 33.9 32.0-36.0 g/dL Red Cell Distribution Width 16.4 H 11.8-14.3 % Platelet Count 97 L 140-450 10^3/uL Mean Platelet Volume 8.5 6.9-10.8 fL Neutrophils (%) (Auto) 60.5 37.0-80.0 % Lymphocytes (%) (Auto) 19.8 10.0-50.0 % Monocytes (%) (Auto) 16.5 H 0.0-12.0 % Eosinophils (%) (Auto) 2.3 0.0-7.0 % Basophils (%) (Auto) 0.9 0.0-2.0 % Neutrophils # (Auto) 1.7 1.6-8.6 10 ^3/uL Lymphocytes # (Auto) 0.5 0.4-5.4 10 ^3/uL Monocytes # (Auto) 0.5 0-1.3 10 ^3/uL Eosinophils # (Auto) 0.1 0-0.8 10 ^3/uL Basophils # (Auto) 0 0-0.2 10 ^3/uL Nucleated Red Blood Cells 0.0 % Sodium Level 135 L 136-145 mmol/L Potassium Level 5.0 3.5-5.1 mmol/L Chloride Level 97 L 98-107 mmol/L Carbon Dioxide Level 27 20-31 mmol/L Anion Gap 11 5-15 Blood Urea Nitrogen 53 #H 9-23 mg/dL Creatinine 6.55 #H 0.550-1.02 mg/dL Glomerular Filtration Rate Calc 7 >90 mL/min BUN/Creatinine Ratio 8.1 L 10.0-20.0 Serum Glucose 108 H 74-106 mg/dL Calcium Level 8.8 8.7-10.4 mg/dL Total Bilirubin 0.2 0.2-1.0 mg/dL Aspartate Amino Transferase (AST) 31 13-40 U/L Alanine Aminotransferase (ALT) 24 7-40 U/L Alkaline Phosphatase 213 H 46-116 U/L Total Protein 6.3 5.7-8.2 g/dL Albumin 3.7 3.2-4.8 g/dL SARS-CoV-2 Antigen (Rapid) Negative NEGATIVE Test 05/27/24 08:44 05/27/24 05:18 Range/Units Troponin I High Sensitivity 114 *H </=34 ng/L Triglycerides Level 62 < 150 mg/dL Cholesterol Level 154 < 200 mg/dL LDL Cholesterol 87 < 100 mg/dL HDL Cholesterol 52 40-59 mg/dL Thyroid Stimulating Hormone (TSH) 1.45 0.55-4.78 uIU/mL Hemoglobin A1c 5.7 <5.7 % A1C B-Type Natriuretic Peptide 1138.42 0-100 pg/mL Assessment Acute chest pain. Acute hypoxic respiratory failure. Acute right pleural effusion. Bilateral community-acquired pneumonia. ESRD on hemodialysis. Cirrhosis of liver. Diabetes. Hypertension. Hypercholesterolemia. Hypertensive emergency blood pressure. Acute CHF exacerbation. Plan/Recommendation I agree with your ongoing assessment and care of plan. Echocardiogram. Amlodipine, Losartan, Hydralazine. Aspirin, Lipitor, Metoprolol. IV antibiotics as ordered. GI prophylactics. Morphine for pain management. Additional plan as per the hospital course. A total of 45 minutes was spent reviewing the patient record, examining the patient, making a diagnostic and therapeutic plan, discussing this plan with medical personnel, following up on diagnostic studies and following the patient for clinical stability excluding any and all procedures. At least 50% of this time was spent in direct, [id number] contact. Plan discussed with: Patient OKSANA CABRAL MD May 28, 2024 20:35
[2024-05-29] VITALS (8 sets, daily range): BP systolic 111–164; BP diastolic 37–74; PULSE 68–81; RESP 14–20; TEMP 97.5–98.8; O2SAT 90–100
[2024-05-29] MEDS: SODIUM CHL 0.9% 1000 ML BAG XX ONE (10:45)
--- NOTE | 2024-05-29 11:22 | DVHPN2 ---
Progress Note Date Seen: May 29, 2024 Medical Necessity Reason Pt with a Central, PICC or Fol: No Subjective Patient reports: No new complaints Other Systems: Patient seen and examined by myself today in follow-up Patient examined hemodialysis, blood pressure stable Objective vital signs Vital Sign Date Time Temp Pulse Resp B/P (MAP) Pulse Ox O2 Delivery O2 Flow Rate FiO2 05/29/24 08:30 97.7 75 14 164/66 (98) 94 97.7 05/28/24 20:00 Nasal Cannula* 2 28 Total Intake and Output 05/28/24 05/28/24 05/29/24 14:59 22:59 06:59 Intake Total 500 ml 750 ml 200 ml Output Total 0 ml 0 ml Balance 500 ml 750 ml 200 ml medications Current Medications Medications Dose Ordered Sig/Eduardo Route Start Time Stop Time Status Last Admin Dose Admin Diagnostic Test (Pha) 1 strip ACHS 05/27/24 11:30 05/29/24 06:32 1 STRIP Insulin Human Regular ACHS SC 05/27/24 11:30 05/28/24 22:00 3 UNITS Dextrose 50 ml UD PRN IV 05/27/24 11:00 Ceftriaxone Sodium 50 ml @ 100 mls/hr DAILY@09 IV 05/28/24 09:00 05/29/24 09:21 100 MLS/HR Azithromycin 250 ml @ 125 mls/hr DAILY IV 05/28/24 10:00 05/28/24 09:18 125 MLS/HR Atorvastatin Calcium 40 mg HS PO 05/27/24 22:00 05/28/24 22:03 40 MG Acetaminophen 650 mg Q6HP PRN PO 05/27/24 11:00 Ondansetron HCl 4 mg Q4HP PRN IV 05/27/24 11:00 05/27/24 12:41 4 MG Nitroglycerin 0.4 mg Q5MINP PRN SL 05/27/24 11:00 Morphine Sulfate 2 mg Q30M PRN IV 05/27/24 11:00 Amlodipine Besylate 10 mg DAILY PO 05/28/24 10:00 05/28/24 07:44 10 MG Calcium Acetate 667 mg TIDWM PO 05/27/24 12:27 05/29/24 09:20 667 MG Clonidine HCl 0.1 mg BID PO 05/27/24 22:00 05/28/24 22:03 0.1 MG Hydralazine HCl 25 mg TID PO 05/27/24 14:00 05/29/24 06:00 25 MG Levothyroxine Sodium 50 mcg QAM PO 05/28/24 07:00 05/29/24 06:27 50 MCG Metoprolol Succinate 50 mg DAILY PO 05/28/24 10:00 Pantoprazole Sodium 40 mg BID PO 05/27/24 22:00 05/29/24 09:20 40 MG Sucralfate 1 gm ACHS PO 05/27/24 12:26 05/29/24 06:27 1 GM Aspirin 81 mg DAILY PO 05/28/24 10:00 Losartan Potassium 100 mg DAILY PO 05/28/24 10:00 05/28/24 07:45 100 MG Examination: LUNGS:Normal, CVS:Normal, MSK:Normal laboratory and microbiology Laboratory Tests 05/28/24 05:24 Test 05/28/24 05:24 Range/Units Serum Glucose 108 H 74-106 mg/dL Problem List/Assessment/Plan Problem List/Assessment/Plan ESRD on hemodialysis Hypertension urgency Congestive heart failure, ejection fraction 45% NSTEMI pleural effusion Pulmonary edema Cirrhosis Hyponatremia due to excess H2O Anemia of chronic kidney disease, well compensated Recommendations Continue with UF 2 L as tolerated Resume home medication Blood pressure control Fluid restrictions Renal diet Cardiology consult We will continue to follow Plan discussed with: Patient, Spouse My Orders My Orders Orders - HERNAN TOMPKINS MD Procedure Category Date Status Time Hemodialysis Orders ORDERS 05/29/24 Transmitted 10:45 Heparin Sodium PHA 05/29/24 Logged (Porcine) 10:45 Heparin Sodium PHA 05/29/24 Logged (Porcine) 10:45 Heparin Sodium PHA 05/29/24 Logged (Porcine) 10:45 Sodium Chloride 0.9% PHA 05/29/24 Logged 10:45 HERNAN TOMPKINS MD May 29, 2024 11:22
--- NOTE | 2024-05-29 12:27 | DVHPN2 ---
Reviewed: Care Plan, H&P, Labs, Medications, Previous Orders, Radiology Changes from previous H/P or p: No Changes Eyes: No Pain, No Vision change, No Conjunctivae inflammation, No Eyelid inflammation, No Other, No Redness ENT: No Ear pain, No Ear discharge, No Nose pain, No Nose discharge, No Nose congestion, No Mouth pain, No Mouth swelling, No Throat pain, No Throat swelling, No Other Cardiovascular: Chest Pain; No Palpitations, No Orthopnea, No Paroxysmal Noc. Dyspnea, No Edema, No Lt Headedness, No Other Respiratory: Cough; No Dry, No Shortness of breath, No SOB with excertion, No Wheezing, No Hemoptysis, No Pleuritic Pain; Sputum; No Other Gastrointestinal: Nausea, Vomiting, Abdominal Pain; No Diarrhea, No Constipation, No Melena, No Hematochezia, No Other Genitourinary: No Dysuria, No Frequency, No Incontinence, No Hematuria, No Retention, No Other Musculoskeletal: No other, No neck pain, No shoulder pain, No arm pain, No back pain, No hand pain, No leg pain, No foot pain Skin: No Rash, No Lesions, No Jaundice, No Bruising; Other (Old scars on lower extremity bilateral) Objective Vitals Vital Signs Date Time Temp Pulse Resp B/P (MAP) Pulse Ox O2 Delivery O2 Flow Rate FiO2 05/29/24 08:30 97.7 75 14 164/66 (98) 94 97.7 05/28/24 20:00 Nasal Cannula* 2 28 Intake/Output Intake and Output 05/29/24 07:00 Intake Total 1450 ml Output Total 0 ml Balance 1450 ml Intake Oral 1150 ml IV Total 300 ml Output Urine Total 0 ml Medications Current Medications Medications Dose Ordered Sig/Eduardo Route Start Time Stop Time Status Last Admin Dose Admin Diagnostic Test (Pha) 1 strip ACHS 05/27/24 11:30 05/29/24 06:32 1 STRIP Insulin Human Regular ACHS SC 05/27/24 11:30 05/28/24 22:00 3 UNITS Dextrose 50 ml UD PRN IV 05/27/24 11:00 Ceftriaxone Sodium 50 ml @ 100 mls/hr DAILY@09 IV 05/28/24 09:00 05/29/24 09:21 100 MLS/HR Azithromycin 250 ml @ 125 mls/hr DAILY IV 05/28/24 10:00 05/28/24 09:18 125 MLS/HR Atorvastatin Calcium 40 mg HS PO 05/27/24 22:00 05/28/24 22:03 40 MG Acetaminophen 650 mg Q6HP PRN PO 05/27/24 11:00 Ondansetron HCl 4 mg Q4HP PRN IV 05/27/24 11:00 05/27/24 12:41 4 MG Nitroglycerin 0.4 mg Q5MINP PRN SL 05/27/24 11:00 Morphine Sulfate 2 mg Q30M PRN IV 05/27/24 11:00 Amlodipine Besylate 10 mg DAILY PO 05/28/24 10:00 05/28/24 07:44 10 MG Calcium Acetate 667 mg TIDWM PO 05/27/24 12:27 05/29/24 09:20 667 MG Clonidine HCl 0.1 mg BID PO 05/27/24 22:00 05/28/24 22:03 0.1 MG Hydralazine HCl 25 mg TID PO 05/27/24 14:00 05/29/24 06:00 25 MG Levothyroxine Sodium 50 mcg QAM PO 05/28/24 07:00 05/29/24 06:27 50 MCG Metoprolol Succinate 50 mg DAILY PO 05/28/24 10:00 Pantoprazole Sodium 40 mg BID PO 05/27/24 22:00 05/29/24 09:20 40 MG Sucralfate 1 gm ACHS PO 05/27/24 12:26 05/29/24 06:27 1 GM Aspirin 81 mg DAILY PO 05/28/24 10:00 Losartan Potassium 100 mg DAILY PO 05/28/24 10:00 05/28/24 07:45 100 MG Laboratory Results Laboratory Tests 05/28/24 05:24 Labs and/or images reviewed: Labs reviewed by me, Image(s) reviewed by me Assessment/Plan Assessment/Plan Acute chest pain rule out coronary artery disease: Troponin 113 treatment per ACS protocol, consult for Dr.M Barth Acute hypoxic respiratory failure: Oxygen by nasal cannula Acute right pleural effusion: Consult for Dr. Mcmahon Bilateral community-acquired pneumonia: Rocephin azithromycin ESRD on hemodialysis Nephrology consult appreciated Cirrhosis of liver Diabetes Hypertension Hypercholesterolemia Hypertensive emergency blood pressure 190/63 Flu test negative Sunshine test negative Acute CHF exacerbation BNP 1138 : Lasix cardiology consult Time Spent 65 minutes Advanced care planning time 20 minutes Patient is full code [facility] [phone] at bedside Plan discussed with: Patient My Orders Orders - MARA POWERS MD Procedure Category Date Status Time * Cardiology Consult CONS 05/28/24 Transmitted 13:07 *Consult CONS 05/28/24 Transmitted / 13:07 * Cardiology Consult CONS 05/28/24 Transmitted 14:04 Date of Service: May 29, 2024 Billing Provider: MARA POWERS MD Common Visit Codes: [id number] CARE 30-74 MIN MARA POWERS MD May 29, 2024 12:27
--- NOTE | 2024-05-29 14:01 | ECG ---
[facility] Test Date: 2024-05-27 Test Time: 04:35:43 Pat Name: LISBETH LANGSTON Department: ER Room: [address] [place] [address] Gender: F Boat [employer]her: ER : 1965 Requested By: MARCO POE Order Number: [id number] Reading MD: Maynor Pike Measurements Intervals Tucker Rate: 93 P: 97 CT: 223 QRS: -51 QRSD: 88 T: 89 QT: 387 QTc: 482 Interpretive Statements Sinus rhythm Prolonged CT interval Left anterior fascicular block Consider left ventricular hypertrophy Nonspecific T abnormalities, lateral leads Electronically Signed On 05-30-2024 19:24:02 PST by Maynor Pike Please click the below link to view image of tracing.
--- NOTE | 2024-05-29 15:44 | DVH ---
EXAM: XY CHEST XRAY 1 VIEW HISTORY: pleural effusion COMPARISON: Chest x-ray dated 05/27/2024, upper images of CT scan of the abdomen dated 05/27/2024. TECHNIQUE: Portable upright AP view of the chest was performed. FINDINGS: Right chest tunnel dialysis catheter is re-identified. There is diffuse hazy opacity throughout the r ight hemithorax, slightly improved since the previous chest x-ray. There is improved interstitial inf iltrate in the left lung. No pneumothorax. The heart is enlarged. The aortic arch is calcific. IMPRESSION: 1. Layering right pleural effusion and bilateral interstitial infiltrates are improved since chest x- ray performed 2 days earlier, suggestive of improved CHF. 2. Cardiomegaly and atherosclerotic vascular disease.
--- NOTE | 2024-05-29 19:42 | DVHPN2 ---
Progress Note - Dictate Date Seen: May 29, 2024 Medical Necessity Reason Pt with a Central, PICC or Fol: No Subjective Patient was seen and evaluated in follow up. Patient is complaining of cough, nausea and weakness. Chest x-ray shows layering right pleural effusion and bilateral interstitial infiltrates are improved since chest x-ray performed 2 days earlier and cardiomegaly and atherosclerotic vascular disease. Patient received HD today. Echocardiogram shows an EF of 45%. vital signs Vital Sign Date Time Temp Pulse Resp B/P (MAP) Pulse Ox O2 Delivery O2 Flow Rate FiO2 05/29/24 16:30 98.7 74 18 129/37 (67) 90 98.7 05/29/24 08:05 Room Air* 0 21 Total Intake and Output 05/28/24 05/28/24 05/29/24 15:00 23:00 07:00 Intake Total 500 ml 750 ml 200 ml Output Total 0 ml 0 ml Balance 500 ml 750 ml 200 ml medications Current Medications Medications Dose Ordered Sig/Eduardo Route Start Time Stop Time Status Last Admin Dose Admin Diagnostic Test (Pha) 1 strip ACHS 05/27/24 11:30 05/29/24 17:00 1 STRIP Insulin Human Regular ACHS SC 05/27/24 11:30 05/29/24 17:42 4 UNITS Dextrose 50 ml UD PRN IV 05/27/24 11:00 Ceftriaxone Sodium 50 ml @ 100 mls/hr DAILY@09 IV 05/28/24 09:00 05/29/24 09:21 100 MLS/HR Azithromycin 250 ml @ 125 mls/hr DAILY IV 05/28/24 10:00 05/29/24 14:46 125 MLS/HR Atorvastatin Calcium 40 mg HS PO 05/27/24 22:00 05/28/24 22:03 40 MG Acetaminophen 650 mg Q6HP PRN PO 05/27/24 11:00 Ondansetron HCl 4 mg Q4HP PRN IV 05/27/24 11:00 05/27/24 12:41 4 MG Nitroglycerin 0.4 mg Q5MINP PRN SL 05/27/24 11:00 Morphine Sulfate 2 mg Q30M PRN IV 05/27/24 11:00 Amlodipine Besylate 10 mg DAILY PO 05/28/24 10:00 05/28/24 07:44 10 MG Calcium Acetate 667 mg TIDWM PO 05/27/24 12:27 05/29/24 17:39 667 MG Clonidine HCl 0.1 mg BID PO 05/27/24 22:00 05/28/24 22:03 0.1 MG Hydralazine HCl 25 mg TID PO 05/27/24 14:00 05/29/24 06:00 25 MG Levothyroxine Sodium 50 mcg QAM PO 05/28/24 07:00 05/29/24 06:27 50 MCG Metoprolol Succinate 50 mg DAILY PO 05/28/24 10:00 Pantoprazole Sodium 40 mg BID PO 05/27/24 22:00 05/29/24 09:20 40 MG Sucralfate 1 gm ACHS PO 05/27/24 12:26 05/29/24 17:39 1 GM Aspirin 81 mg DAILY PO 05/28/24 10:00 Losartan Potassium 100 mg DAILY PO 05/28/24 10:00 05/28/24 07:45 100 MG objective GENERAL: Awake, alert, oriented. LUNGS: Decreased breath sounds. CARDIOVASCULAR: Heart sounds are good. ABDOMEN: Soft. laboratory and microbiology Laboratory Tests 05/28/24 05:24 Test 05/28/24 05:24 Range/Units Serum Glucose 108 H 74-106 mg/dL Problem List Acute chest pain. Acute hypoxic respiratory failure. Acute right pleural effusion. Bilateral community-acquired pneumonia. ESRD on hemodialysis. Cirrhosis of liver. Diabetes. Hypertension. Hypercholesterolemia. Hypertensive emergency blood pressure. Acute CHF exacerbation. Assessment/Plan Continued all current supportive medical care. Amlodipine, Losartan, Hydralazine. Aspirin, Lipitor, Metoprolol. IV antibiotics as ordered. GI prophylactics. Morphine for pain management. Additional plan as per the hospital course. Plan discussed with: Patient OKSANA CABRAL MD May 29, 2024 19:42
--- NOTE | 2024-05-29 20:34 | DVHPN2 ---
Progress Note - Dictate Date Seen: May 29, 2024 Medical Necessity Reason Pt with a Central, PICC or Fol: No Subjective Patient seen and examined at bedside. Breathing comfortably on room air. Overnight events reviewed vital signs Vital Sign Date Time Temp Pulse Resp B/P (MAP) Pulse Ox O2 Delivery O2 Flow Rate FiO2 05/29/24 20:18 152/80 05/29/24 16:30 98.7 74 18 90 98.7 05/29/24 08:05 Room Air* 0 21 Total Intake and Output 05/28/24 05/28/24 05/29/24 15:00 23:00 07:00 Intake Total 500 ml 750 ml 200 ml Output Total 0 ml 0 ml Balance 500 ml 750 ml 200 ml medications Current Medications Medications Dose Ordered Sig/Eduardo Route Start Time Stop Time Status Last Admin Dose Admin Diagnostic Test (Pha) 1 strip ACHS 05/27/24 11:30 05/29/24 17:00 1 STRIP Insulin Human Regular ACHS SC 05/27/24 11:30 05/29/24 17:42 4 UNITS Dextrose 50 ml UD PRN IV 05/27/24 11:00 Ceftriaxone Sodium 50 ml @ 100 mls/hr DAILY@09 IV 05/28/24 09:00 05/29/24 09:21 100 MLS/HR Azithromycin 250 ml @ 125 mls/hr DAILY IV 05/28/24 10:00 05/29/24 14:46 125 MLS/HR Atorvastatin Calcium 40 mg HS PO 05/27/24 22:00 05/29/24 20:17 40 MG Acetaminophen 650 mg Q6HP PRN PO 05/27/24 11:00 Ondansetron HCl 4 mg Q4HP PRN IV 05/27/24 11:00 05/27/24 12:41 4 MG Nitroglycerin 0.4 mg Q5MINP PRN SL 05/27/24 11:00 Morphine Sulfate 2 mg Q30M PRN IV 05/27/24 11:00 Amlodipine Besylate 10 mg DAILY PO 05/28/24 10:00 05/28/24 07:44 10 MG Calcium Acetate 667 mg TIDWM PO 05/27/24 12:27 05/29/24 17:39 667 MG Clonidine HCl 0.1 mg BID PO 05/27/24 22:00 05/29/24 20:18 0.1 MG Hydralazine HCl 25 mg TID PO 05/27/24 14:00 05/29/24 20:18 25 MG Levothyroxine Sodium 50 mcg QAM PO 05/28/24 07:00 05/29/24 06:27 50 MCG Metoprolol Succinate 50 mg DAILY PO 05/28/24 10:00 Pantoprazole Sodium 40 mg BID PO 05/27/24 22:00 05/29/24 20:17 40 MG Sucralfate 1 gm ACHS PO 05/27/24 12:26 05/29/24 20:18 1 GM Aspirin 81 mg DAILY PO 05/28/24 10:00 Losartan Potassium 100 mg DAILY PO 05/28/24 10:00 05/28/24 07:45 100 MG objective Gen.: Patient lying in bed in no apparent distress. Breathing on room air. Head: Normocephalic, atraumatic. Eyes: EOMI/PERRLA. Ears: Normal hearing. Normal anatomy. Neck/trachea: Trachea midline, supple. Nose: Normal external anatomy. Mouth: Moist mucous membranes. Chest: Decreased air entry bilaterally. No wheezing or rhonchi. Cardiovascular: Positive S1, positive S2. Regular rate and rhythm. Abdomen: Positive bowel sounds in all 4 quadrants. Soft, non-tender, non- distended. : Deferred. Rectal: Deferred. Skin: Warm, dry. Intact. Extremities: 2+ radial pulses bilaterally. No lower extremity edema. Neuro: Awake, alert, oriented x3. No gross motor or sensory deficits. Cranial nerves II through XII intact. Gait not assessed. laboratory and microbiology Laboratory Tests 05/28/24 05:24 Test 05/28/24 05:24 Range/Units Serum Glucose 108 H 74-106 mg/dL Assessment/Plan Impression: Acute hypoxic respiratory failure Right pleural effusion Atelectasis End-stage renal disease, on hemodialysis Non-ST elevation myocardial infarction Elevated troponin Events: Currently on room air Supplemental oxygen PRN Improved O2 requirements S/p hemodialysis, removed 2 liters Chest x-ray demonstrates layering right pleural effusion and bilateral interstitial infiltrates are improved; cardiomegaly and atherosclerotic vascular disease. Continue antibiotics Incentive spirometry Labs and imaging reviewed. Rest of plan as noted below. Plan: Supplemental oxygen PRN Titrate to keep O2 sats above 92%. Respiratory viral panel negative. Hemodialysis per Nephrology Continue antibiotics Incentive spirometry Monitor blood pressure Accu-Cheks, ISS. Monitor renal function. Monitor electrolytes. Supplement as necessary. Monitor ins and outs. DVT prophylaxis. Prognosis: Poor given patient's multiple co-morbidities. Rest of plan per hospitalist and other consultants. Thank you, Dr Janae Matthew, for allowing me to participate in this patient's care. Further recommendations will depend on the patient's clinical course. Please do not hesitate to contact me if you have any questions or concerns. This medical document was created using an electronic medical record system with [employer] dictation system. Although these documentations are being carefully reviewed, there may still be some phonetic and typographical changes. The errors are purely typographical, due to imperfection on the software program, and do not reflect any compromise in the patient's medical care. Plan discussed with: Patient, Other (TORITO Khan) CHRISTIANNE LAWSON MD May 29, 2024 20:34
[2024-05-30] VITALS (8 sets, daily range): BP systolic 63–187; BP diastolic 50–80; PULSE 72–76; RESP 17–18; TEMP 97.4–98.6; O2SAT 90–100
[2024-05-30] MEDS: MELATONIN 5 MG TAB ONE (00:03)
[2024-05-30] MEDS: MELATONIN 5 MG TAB PO ONE (00:22)
--- NOTE | 2024-05-30 11:46 | DVHPN2 ---
Reviewed: Care Plan, H&P, Labs, Medications, Previous Orders, Radiology Changes from previous H/P or p: No Changes Eyes: No Pain, No Vision change, No Conjunctivae inflammation, No Eyelid inflammation, No Other, No Redness ENT: No Ear pain, No Ear discharge, No Nose pain, No Nose discharge, No Nose congestion, No Mouth pain, No Mouth swelling, No Throat pain, No Throat swelling, No Other Cardiovascular: Chest Pain Respiratory: Cough, Sputum Gastrointestinal: Nausea, Vomiting, Abdominal Pain Genitourinary: No Dysuria, No Frequency, No Incontinence, No Hematuria, No Retention, No Other Musculoskeletal: No other, No neck pain, No shoulder pain, No arm pain, No back pain, No hand pain, No leg pain, No foot pain Skin: Other Objective Vitals Vital Signs Date Time Temp Pulse Resp B/P (MAP) Pulse Ox O2 Delivery O2 Flow Rate FiO2 05/30/24 09:00 97.6 74 17 187/80 (115) 100 97.6 05/30/24 07:39 Nasal Cannula* 2 28 Intake/Output Intake and Output 05/30/24 07:00 Intake Total 900 ml Output Total 0 ml Balance 900 ml Intake Oral 600 ml IV Total 300 ml Output Urine Total 0 ml # Bowel Movements 1 Medications Current Medications Medications Dose Ordered Sig/Eduardo Route Start Time Stop Time Status Last Admin Dose Admin Diagnostic Test (Pha) 1 strip ACHS 05/27/24 11:30 05/30/24 05:24 1 STRIP Insulin Human Regular ACHS SC 05/27/24 11:30 05/29/24 20:29 2 UNITS Dextrose 50 ml UD PRN IV 05/27/24 11:00 Ceftriaxone Sodium 50 ml @ 100 mls/hr DAILY@09 IV 05/28/24 09:00 05/30/24 08:51 100 MLS/HR Azithromycin 250 ml @ 125 mls/hr DAILY IV 05/28/24 10:00 05/29/24 14:46 125 MLS/HR Atorvastatin Calcium 40 mg HS PO 05/27/24 22:00 05/29/24 20:17 40 MG Acetaminophen 650 mg Q6HP PRN PO 05/27/24 11:00 Ondansetron HCl 4 mg Q4HP PRN IV 05/27/24 11:00 05/27/24 12:41 4 MG Nitroglycerin 0.4 mg Q5MINP PRN SL 2/8/25 11:00 Morphine Sulfate 2 mg Q30M PRN IV 05/27/24 11:00 Amlodipine Besylate 10 mg DAILY PO 05/28/24 10:00 05/30/24 08:49 10 MG Calcium Acetate 667 mg TIDWM PO 05/27/24 12:27 05/30/24 08:49 667 MG Clonidine HCl 0.1 mg BID PO 05/27/24 22:00 05/30/24 08:51 0.1 MG Hydralazine HCl 25 mg TID PO 05/27/24 14:00 05/30/24 05:24 25 MG Levothyroxine Sodium 50 mcg QAM PO 05/28/24 07:00 05/30/24 05:24 50 MCG Metoprolol Succinate 50 mg DAILY PO 05/28/24 10:00 05/30/24 08:52 50 MG Pantoprazole Sodium 40 mg BID PO 05/27/24 22:00 05/30/24 08:50 40 MG Sucralfate 1 gm ACHS PO 05/27/24 12:26 05/30/24 05:23 1 GM Aspirin 81 mg DAILY PO 05/28/24 10:00 Losartan Potassium 100 mg DAILY PO 05/28/24 10:00 05/30/24 08:50 100 MG Laboratory Results Laboratory Tests 05/28/24 05:24 Labs and/or images reviewed: Labs reviewed by me, Image(s) reviewed by me Assessment/Plan Assessment/Plan Acute chest pain rule out coronary artery disease: Troponin 113 treatment per ACS protocol, consult for Dr.M Barth appreciated Acute hypoxic respiratory failure: Oxygen by nasal cannula Acute right pleural effusion: Consult for Dr. Mcmahon Bilateral community-acquired pneumonia: Rocephin azithromycin ESRD on hemodialysis Nephrology consult appreciated Cirrhosis of liver Diabetes Hypertension Hypercholesterolemia Hypertensive emergency blood pressure 190/63 Flu test negative Sunshine test negative Acute CHF exacerbation BNP 1138 : Lasix cardiology consult Time Spent 55 minutes Advanced care planning time 20 minutes Patient is full code [facility] [phone] at bedside Mid line ordered Plan discussed with: Patient My Orders Orders - MARA POWERS MD Procedure Category Date Status Time Chest Xray 1 View XY 05/29/24 Resulted 12:23 Date of Service: May 30, 2024 Billing Provider: MARA POWERS MD Common Visit Codes: [id number] INP/OBS CARE(HIGH) MARA POWERS MD May 30, 2024 11:46
--- NOTE | 2024-05-30 12:51 | DVHPN2 ---
Progress Note Date Seen: May 30, 2024 Medical Necessity Reason Pt with a Central, PICC or Fol: No Subjective Patient reports: No new complaints Other Systems: Patient seen and examined by myself today in follow-up, at the bedside Objective vital signs Vital Sign Date Time Temp Pulse Resp B/P (MAP) Pulse Ox O2 Delivery O2 Flow Rate FiO2 05/30/24 09:00 97.6 74 17 187/80 (115) 100 97.6 05/30/24 07:39 Nasal Cannula* 2 28 Total Intake and Output 05/29/24 05/29/24 05/30/24 14:59 22:59 06:59 Intake Total 50 ml 250 ml 600 ml Output Total 0 ml 0 ml Balance 50 ml 250 ml 600 ml medications Current Medications Medications Dose Ordered Sig/Eduardo Route Start Time Stop Time Status Last Admin Dose Admin Diagnostic Test (Pha) 1 strip ACHS 05/27/24 11:30 05/30/24 05:24 1 STRIP Insulin Human Regular ACHS SC 05/27/24 11:30 05/29/24 20:29 2 UNITS Dextrose 50 ml UD PRN IV 05/27/24 11:00 Ceftriaxone Sodium 50 ml @ 100 mls/hr DAILY@09 IV 05/28/24 09:00 05/30/24 08:51 100 MLS/HR Azithromycin 250 ml @ 125 mls/hr DAILY IV 05/28/24 10:00 05/29/24 14:46 125 MLS/HR Atorvastatin Calcium 40 mg HS PO 05/27/24 22:00 05/29/24 20:17 40 MG Acetaminophen 650 mg Q6HP PRN PO 05/27/24 11:00 Ondansetron HCl 4 mg Q4HP PRN IV 05/27/24 11:00 05/27/24 12:41 4 MG Nitroglycerin 0.4 mg Q5MINP PRN SL 05/27/24 11:00 Morphine Sulfate 2 mg Q30M PRN IV 05/27/24 11:00 Amlodipine Besylate 10 mg DAILY PO 05/28/24 10:00 05/30/24 08:49 10 MG Calcium Acetate 667 mg TIDWM PO 05/27/24 12:27 05/30/24 08:49 667 MG Clonidine HCl 0.1 mg BID PO 05/27/24 22:00 05/30/24 08:51 0.1 MG Hydralazine HCl 25 mg TID PO 05/27/24 14:00 05/30/24 05:24 25 MG Levothyroxine Sodium 50 mcg QAM PO 05/28/24 07:00 05/30/24 05:24 50 MCG Metoprolol Succinate 50 mg DAILY PO 05/28/24 10:00 05/30/24 08:52 50 MG Pantoprazole Sodium 40 mg BID PO 05/27/24 22:00 05/30/24 08:50 40 MG Sucralfate 1 gm ACHS PO 05/27/24 12:26 05/30/24 05:23 1 GM Aspirin 81 mg DAILY PO 05/28/24 10:00 Losartan Potassium 100 mg DAILY PO 05/28/24 10:00 05/30/24 08:50 100 MG Examination: LUNGS:Normal, CVS:Normal, MSK:Normal laboratory and microbiology Laboratory Tests 05/28/24 05:24 Test 05/28/24 05:24 Range/Units Serum Glucose 108 H 74-106 mg/dL Problem List/Assessment/Plan Problem List/Assessment/Plan ESRD on hemodialysis Hypertension urgency Congestive heart failure, ejection fraction 45% NSTEMI pleural effusion Pulmonary edema Liver Cirrhosis Hyponatremia due to excess H2O Anemia of chronic kidney disease, well compensated Recommendations Hemodialysis tomorrow Resume home medication Blood pressure control Fluid restrictions Renal diet Cardiology consult We will continue to follow Plan discussed with: Patient, Spouse HERNAN TOMPKINS MD May 30, 2024 12:51
--- NOTE | 2024-05-30 14:21 | DVHPN2 ---
Progress Note - Dictate Date Seen: May 30, 2024 Medical Necessity Reason Pt with a Central, PICC or Fol: No Subjective Patient was seen and evaluated in follow up. Patient is complaining of productive cough and abdominal pain. Patient had a midline placed this afternoon. Patients BS are WNL> vital signs Vital Sign Date Time Temp Pulse Resp B/P (MAP) Pulse Ox O2 Delivery O2 Flow Rate FiO2 05/30/24 09:00 97.6 74 17 187/80 (115) 100 97.6 05/30/24 07:39 Nasal Cannula* 2 28 Total Intake and Output 05/29/24 05/29/24 05/30/24 15:00 23:00 07:00 Intake Total 50 ml 250 ml 600 ml Output Total 0 ml 0 ml Balance 50 ml 250 ml 600 ml medications Current Medications Medications Dose Ordered Sig/Eduardo Route Start Time Stop Time Status Last Admin Dose Admin Diagnostic Test (Pha) 1 strip ACHS 05/27/24 11:30 05/30/24 11:30 1 STRIP Insulin Human Regular ACHS SC 05/27/24 11:30 05/29/24 20:29 2 UNITS Dextrose 50 ml UD PRN IV 05/27/24 11:00 Ceftriaxone Sodium 50 ml @ 100 mls/hr DAILY@09 IV 05/28/24 09:00 05/30/24 08:51 100 MLS/HR Azithromycin 250 ml @ 125 mls/hr DAILY IV 05/28/24 10:00 05/30/24 14:04 125 MLS/HR Atorvastatin Calcium 40 mg HS PO 05/27/24 22:00 05/29/24 20:17 40 MG Acetaminophen 650 mg Q6HP PRN PO 05/27/24 11:00 Ondansetron HCl 4 mg Q4HP PRN IV 05/27/24 11:00 05/27/24 12:41 4 MG Nitroglycerin 0.4 mg Q5MINP PRN SL 05/27/24 11:00 Morphine Sulfate 2 mg Q30M PRN IV 05/27/24 11:00 Amlodipine Besylate 10 mg DAILY PO 05/28/24 10:00 05/30/24 08:49 10 MG Calcium Acetate 667 mg TIDWM PO 05/27/24 12:27 05/30/24 12:57 667 MG Clonidine HCl 0.1 mg BID PO 05/27/24 22:00 05/30/24 08:51 0.1 MG Hydralazine HCl 25 mg TID PO 05/27/24 14:00 05/30/24 05:24 25 MG Levothyroxine Sodium 50 mcg QAM PO 05/28/24 07:00 05/30/24 05:24 50 MCG Metoprolol Succinate 50 mg DAILY PO 05/28/24 10:00 05/30/24 08:52 50 MG Pantoprazole Sodium 40 mg BID PO 05/27/24 22:00 05/30/24 08:50 40 MG Sucralfate 1 gm ACHS PO 05/27/24 12:26 05/30/24 12:57 1 GM Aspirin 81 mg DAILY PO 05/28/24 10:00 Losartan Potassium 100 mg DAILY PO 05/28/24 10:00 05/30/24 08:50 100 MG objective GENERAL: Awake, alert, oriented. LUNGS: Decreased breath sounds. CARDIOVASCULAR: Heart sounds are good. ABDOMEN: Soft. laboratory and microbiology Laboratory Tests 05/28/24 05:24 Test 05/28/24 05:24 Range/Units Serum Glucose 108 H 74-106 mg/dL Problem List Acute chest pain. Acute hypoxic respiratory failure. Acute right pleural effusion. Bilateral community-acquired pneumonia. ESRD on hemodialysis. Cirrhosis of liver. Diabetes. Hypertension. Hypercholesterolemia. Hypertensive emergency blood pressure. Acute CHF exacerbation. Assessment/Plan Continued all current supportive medical care. Amlodipine, Losartan, Hydralazine. Aspirin, Lipitor, Metoprolol. IV antibiotics as ordered. GI prophylactics. Morphine for pain management. Additional plan as per the hospital course. Plan discussed with: Patient OKSANA CABRAL MD May 30, 2024 14:21
--- NOTE | 2024-05-30 21:05 | DVHPN2 ---
Progress Note - Dictate Date Seen: May 30, 2024 Medical Necessity Reason Pt with a Central, PICC or Fol: No Subjective Patient seen and examined at bedside. Breathing comfortably on room air. Overnight events reviewed vital signs Vital Sign Date Time Temp Pulse Resp B/P (MAP) Pulse Ox O2 Delivery O2 Flow Rate FiO2 05/30/24 20:56 144/78 05/30/24 17:00 98.6 76 17 90 98.6 05/30/24 07:39 Nasal Cannula* 2 28 Total Intake and Output 05/29/24 05/29/24 05/30/24 15:00 23:00 07:00 Intake Total 50 ml 250 ml 600 ml Output Total 0 ml 0 ml Balance 50 ml 250 ml 600 ml medications Current Medications Medications Dose Ordered Sig/Eduardo Route Start Time Stop Time Status Last Admin Dose Admin Diagnostic Test (Pha) 1 strip ACHS 05/27/24 11:30 05/30/24 20:57 1 STRIP Insulin Human Regular ACHS SC 05/27/24 11:30 05/30/24 18:08 2 UNITS Dextrose 50 ml UD PRN IV 05/27/24 11:00 Ceftriaxone Sodium 50 ml @ 100 mls/hr DAILY@09 IV 05/28/24 09:00 05/30/24 08:51 100 MLS/HR Azithromycin 250 ml @ 125 mls/hr DAILY IV 05/28/24 10:00 05/30/24 14:04 125 MLS/HR Atorvastatin Calcium 40 mg HS PO 05/27/24 22:00 05/30/24 20:57 40 MG Acetaminophen 650 mg Q6HP PRN PO 05/27/24 11:00 Ondansetron HCl 4 mg Q4HP PRN IV 05/27/24 11:00 05/27/24 12:41 4 MG Nitroglycerin 0.4 mg Q5MINP PRN SL 05/27/24 11:00 Morphine Sulfate 2 mg Q30M PRN IV 05/27/24 11:00 Amlodipine Besylate 10 mg DAILY PO 05/28/24 10:00 05/30/24 08:49 10 MG Calcium Acetate 667 mg TIDWM PO 05/27/24 12:27 05/30/24 18:02 667 MG Clonidine HCl 0.1 mg BID PO 05/27/24 22:00 05/30/24 20:56 0.1 MG Hydralazine HCl 25 mg TID PO 05/27/24 14:00 05/30/24 20:56 25 MG Levothyroxine Sodium 50 mcg QAM PO 05/28/24 07:00 05/30/24 05:24 50 MCG Metoprolol Succinate 50 mg DAILY PO 05/28/24 10:00 05/30/24 08:52 50 MG Pantoprazole Sodium 40 mg BID PO 05/27/24 22:00 05/30/24 20:57 40 MG Sucralfate 1 gm ACHS PO 05/27/24 12:26 05/30/24 20:57 1 GM Aspirin 81 mg DAILY PO 05/28/24 10:00 Losartan Potassium 100 mg DAILY PO 05/28/24 10:00 05/30/24 08:50 100 MG objective Gen.: Patient lying in bed in no apparent distress. Breathing on room air. Head: Normocephalic, atraumatic. Eyes: EOMI/PERRLA. Ears: Normal hearing. Normal anatomy. Neck/trachea: Trachea midline, supple. Nose: Normal external anatomy. Mouth: Moist mucous membranes. Chest: Decreased air entry bilaterally. No wheezing or rhonchi. Cardiovascular: Positive S1, positive S2. Regular rate and rhythm. Abdomen: Positive bowel sounds in all 4 quadrants. Soft, non-tender, non- distended. : Deferred. Rectal: Deferred. Skin: Warm, dry. Intact. Extremities: 2+ radial pulses bilaterally. No lower extremity edema. Neuro: Awake, alert, oriented x3. No gross motor or sensory deficits. Cranial nerves II through XII intact. Gait not assessed. laboratory and microbiology Laboratory Tests 05/28/24 05:24 Test 05/28/24 05:24 Range/Units Serum Glucose 108 H 74-106 mg/dL Assessment/Plan Impression: Acute hypoxic respiratory failure Right pleural effusion Atelectasis End-stage renal disease, on hemodialysis Non-ST elevation myocardial infarction Elevated troponin Events: Remains on room air Supplemental oxygen PRN Improved O2 requirements S/p hemodialysis yesterday, removed 2 liters Chest x-ray on 05/29 demonstrates layering right pleural effusion and bilateral interstitial infiltrates are improved; cardiomegaly and atherosclerotic vascular disease. Continue antibiotics Incentive spirometry Continue PT HD per Nephrology Monitor renal function. Monitor electrolytes. Supplement as necessary. Monitor ins and outs. Plan for SNF placement. Labs and imaging reviewed. Rest of plan as noted below. Plan: Supplemental oxygen PRN Titrate to keep O2 sats above 92%. Respiratory viral panel negative. Hemodialysis per Nephrology Continue antibiotics Incentive spirometry Monitor blood pressure Accu-Cheks, ISS PRN. Monitor renal function. Monitor electrolytes. Supplement as necessary. Monitor ins and outs. DVT prophylaxis. Prognosis: Guarded given patient's multiple co-morbidities. Rest of plan per hospitalist and other consultants. Thank you, Dr Janae Matthew, for allowing me to participate in this patient's care. Further recommendations will depend on the patient's clinical course. Please do not hesitate to contact me if you have any questions or concerns. This medical document was created using an electronic medical record system with [employer] dictation system. Although these documentations are being carefully reviewed, there may still be some phonetic and typographical changes. The errors are purely typographical, due to imperfection on the software program, and do not reflect any compromise in the patient's medical care. Plan discussed with: Patient, Other (TORITO Khan) CHRISTIANNE LAWSON MD May 30, 2024 21:05
[2024-05-31 01:15] VITALS: BP 144/54; PULSE 75; RESP 17; TEMP 98.2; O2SAT 91
[2024-05-31 05:00] VITALS: BP 172/72; PULSE 74; RESP 18; TEMP 98.2; O2SAT 93
[2024-05-31 08:00] VITALS: PULSE 72
[2024-05-31 09:00] VITALS: BP_SYST 131; BP_SYST 160; BP_DIAS 81; BP_DIAS 84; PULSE 74; PULSE 83; RESP 15; RESP 18; TEMP 97.1; TEMP 97.5; O2SAT 92; O2SAT 93
[2024-05-31] MEDS: SODIUM CHL 0.9% 1000 ML BAG XX ONE (10:30)
--- NOTE | 2024-05-31 10:33 | DVHPN2 ---
Progress Note Date Seen: May 31, 2024 Medical Necessity Reason Pt with a Central, PICC or Fol: No Subjective Patient reports: No new complaints Other Systems: Patient seen and examined by myself today in follow-up Patient examined hemodialysis, blood pressure stable Objective vital signs Vital Sign Date Time Temp Pulse Resp B/P (MAP) Pulse Ox O2 Delivery O2 Flow Rate FiO2 05/31/24 09:00 97.1 74 15 160/84 (109) 92 97.1 05/30/24 20:00 Room Air* 0 21 Total Intake and Output 05/30/24 05/30/24 05/31/24 15:00 23:00 07:00 Intake Total 100 ml 1450 ml 414 ml Balance 100 ml 1450 ml 414 ml medications Current Medications Medications Dose Ordered Sig/Eduardo Route Start Time Stop Time Status Last Admin Dose Admin Diagnostic Test (Pha) 1 strip ACHS 05/27/24 11:30 05/31/24 05:47 1 STRIP Insulin Human Regular ACHS SC 05/27/24 11:30 05/30/24 18:08 2 UNITS Dextrose 50 ml UD PRN IV 05/27/24 11:00 Ceftriaxone Sodium 50 ml @ 100 mls/hr DAILY@09 IV 05/28/24 09:00 05/31/24 08:17 100 MLS/HR Azithromycin 250 ml @ 125 mls/hr DAILY IV 05/28/24 10:00 05/30/24 14:04 125 MLS/HR Atorvastatin Calcium 40 mg HS PO 05/27/24 22:00 05/30/24 20:57 40 MG Acetaminophen 650 mg Q6HP PRN PO 05/27/24 11:00 Ondansetron HCl 4 mg Q4HP PRN IV 05/27/24 11:00 05/27/24 12:41 4 MG Nitroglycerin 0.4 mg Q5MINP PRN SL 05/27/24 11:00 Morphine Sulfate 2 mg Q30M PRN IV 05/27/24 11:00 Amlodipine Besylate 10 mg DAILY PO 05/28/24 10:00 05/30/24 08:49 10 MG Calcium Acetate 667 mg TIDWM PO 05/27/24 12:27 05/31/24 08:17 667 MG Clonidine HCl 0.1 mg BID PO 05/27/24 22:00 05/30/24 20:56 0.1 MG Hydralazine HCl 25 mg TID PO 05/27/24 14:00 05/31/24 05:44 25 MG Levothyroxine Sodium 50 mcg QAM PO 05/28/24 07:00 05/31/24 05:44 50 MCG Metoprolol Succinate 50 mg DAILY PO 05/28/24 10:00 05/30/24 08:52 50 MG Pantoprazole Sodium 40 mg BID PO 05/27/24 22:00 05/31/24 08:17 40 MG Sucralfate 1 gm ACHS PO 05/27/24 12:26 05/31/24 05:44 1 GM Aspirin 81 mg DAILY PO 05/28/24 10:00 Losartan Potassium 100 mg DAILY PO 05/28/24 10:00 05/30/24 08:50 100 MG laboratory and microbiology Laboratory Tests 05/28/24 05:24 Test 05/28/24 05:24 Range/Units Serum Glucose 108 H 74-106 mg/dL Problem List/Assessment/Plan Problem List/Assessment/Plan ESRD on hemodialysis Hypertension urgency Congestive heart failure, ejection fraction 45% NSTEMI pleural effusion Pulmonary edema Liver Cirrhosis Hyponatremia due to excess H2O Anemia of chronic kidney disease, well compensated Recommendations Continue with UF to 3 L as tolerated Albumin 25% p.r.n. hemodialysis Resume home medication Blood pressure control Fluid restrictions Renal diet Cardiology consult We will continue to follow Plan discussed with: Patient My Orders My Orders Orders - HERNAN TOMPKINS MD Procedure Category Date Status Time Hemodialysis Orders ORDERS 05/31/24 Transmitted 07:00 Dialysis Nursing HARSH 05/31/24 In Process Message 07:00 Document Fluid Input HARSH 05/31/24 In Process And Outpu 07:00 HERNAN TOMPKINS MD May 31, 2024 10:33
--- NOTE | 2024-05-31 11:39 | DVHDS2 ---
Discharge Summary Date of Admission May 27, 2024 at 11:00 Date of Discharge: May 31, 2024 Admitting Diagnosis Shortness of breath Wounds: None Labs/Diagnostic Data: Laboratory Results Test 05/31/24 05:46 05/28/24 12:58 05/28/24 05:24 05/27/24 14:11 POC Glucose 110 mg/dl (70-106) Influenza Type A Antigen Negative (Negative) Influenza Type B Antigen Negative (Negative) White Blood Count 2.8 10^3/uL (4.4-10.8) Red Blood Count 3.49 10^6/uL (4.0-5.20) Hemoglobin 11.1 g/dL (12.2-16.2) Hematocrit 32.8 % (36.0-46.0) Mean Corpuscular Volume 94.2 fL (80.0-100.0) Mean Corpuscular Hemoglobin 31.9 pg (28.0-32.0) Mean Corpuscular Hemoglobin Concent 33.9 g/dL (32.0-36.0) Red Cell Distribution Width 16.4 % (11.8-14.3) Platelet Count 97 10^3/uL (140-450) Mean Platelet Volume 8.5 fL (6.9-10.8) Neutrophils (%) (Auto) 60.5 % (37.0-80.0) Lymphocytes (%) (Auto) 19.8 % (10.0-50.0) Monocytes (%) (Auto) 16.5 % (0.0-12.0) Eosinophils (%) (Auto) 2.3 % (0.0-7.0) Basophils (%) (Auto) 0.9 % (0.0-2.0) Neutrophils # (Auto) 1.7 10 ^3/uL (1.6-8.6) Lymphocytes # (Auto) 0.5 10 ^3/uL (0.4-5.4) Monocytes # (Auto) 0.5 10 ^3/uL (0-1.3) Eosinophils # (Auto) 0.1 10 ^3/uL (0-0.8) Basophils # (Auto) 0 10 ^3/uL (0-0.2) Nucleated Red Blood Cells 0.0 % Sodium Level 135 mmol/L (136-145) Potassium Level 5.0 mmol/L (3.5-5.1) Chloride Level 97 mmol/L (98-107) Carbon Dioxide Level 27 mmol/L (20-31) Anion Gap 11 (5-15) Blood Urea Nitrogen 53 mg/dL (9-23) Creatinine 6.55 mg/dL (0.550-1.02) Glomerular Filtration Rate Calc 7 mL/min (>90) BUN/Creatinine Ratio 8.1 (10.0-20.0) Serum Glucose 108 mg/dL (74-106) Calcium Level 8.8 mg/dL (8.7-10.4) Total Bilirubin 0.2 mg/dL (0.2-1.0) Aspartate Amino Transferase (AST) 31 U/L (13-40) Alanine Aminotransferase (ALT) 24 U/L (7-40) Alkaline Phosphatase 213 U/L (46-116) Total Protein 6.3 g/dL (5.7-8.2) Albumin 3.7 g/dL (3.2-4.8) SARS-CoV-2 Antigen (Rapid) Negative (NEGATIVE) Test 05/27/24 08:44 05/27/24 05:18 Troponin I High Sensitivity 114 ng/L (</=34) Triglycerides Level 62 mg/dL (< 150) Cholesterol Level 154 mg/dL (< 200) LDL Cholesterol 87 mg/dL (< 100) HDL Cholesterol 52 mg/dL (40-59) Thyroid Stimulating Hormone (TSH) 1.45 uIU/mL (0.55-4.78) Hemoglobin A1c 5.7 % A1C (<5.7) B-Type Natriuretic Peptide 1138.42 pg/mL (0-100) Other Laboratory Tests 05/28/24 05:24 Brief Hx & Hospital Course: 79-year-old female with a history of diabetes hypertension cirrhosis of liver hypercholesterolemia ESRD on hemodialysis 3 times a week came in complaining of chest pain and shortness of breaths in the setting troponin was 113 seen by fast brim pouncer felt to be type [address]-elevation NM. Patient had a bilateral community-acquired pneumonia treated with Rocephin azithromycin mild right pleural effusion seen by Dr. Mcmahon. Acute CHF exacerbation with a BNP of 1 month three eight treated with the Lasix. The patient being [facility] for Rocephin 1 g IV daily and azithromycin 500 mg IV daily for three weeks for community-acquired pneumonia. The plan is acceptable to the patient's Consults/Reason for consult Nephrology Pulmonology Dr. Mcmahon Operations or Procedures Dialysis Condition at Discharge: Poor Final Diagnosis/Problems List Acute chest pain rule out coronary artery disease: Troponin 113 treatment per ACS protocol, consult for Dr.M Barth appreciated Acute hypoxic respiratory failure: Oxygen by nasal cannula Acute right pleural effusion: Consult for Dr. Mcmahon Bilateral community-acquired pneumonia: Rocephin azithromycin ESRD on hemodialysis Nephrology consult appreciated Cirrhosis of liver Diabetes Hypertension Hypercholesterolemia Hypertensive emergency blood pressure 190/63 Flu test negative Sunshine test negative Acute CHF exacerbation BNP 1138 : Lasix cardiology consult Discharge Disposition: Intermediate Facility Discharge Instruct/Medications Diet: Renal Activity: Light activity Follow Up/Referral: Follow up with the [facility] Medications: Azithromycin 500 mg IV daily for three weeks Rocephin 1 g IV daily for three weeks For pneumonia 39 (Time Taken for discharge summary 39 minutes) Discharge Statement: "Patient was advised to return to the ER or call 911 if any headaches, dizziness, shortness of breath, chest pain, abdominal pain, bleeding, fevers, or worsening of medical condition. Patient was counseled about treatment plan, medications, possible side effects, patientverbalized understanding. All questions were answered to the best of my ability. This discharge took greater then 30 minutes in planning, reviewing documentation, counseling the patient, and discussing with other team members." ASSESSMENT ASSESSMENT Hospital Course Improved Assessment Acute chest pain rule out coronary artery disease: Troponin 113 treatment per ACS protocol, consult for Dr.M Barth appreciated Acute hypoxic respiratory failure: Oxygen by nasal cannula Acute right pleural effusion: Consult for Dr. Mcmahon Bilateral community-acquired pneumonia: Rocephin azithromycin ESRD on hemodialysis Nephrology consult appreciated Cirrhosis of liver Diabetes Hypertension Hypercholesterolemia Hypertensive emergency blood pressure 190/63 Flu test negative Sunshine test negative Acute CHF exacerbation BNP 1138 : Lasix cardiology consult Date of Service: May 31, 2024 Billing Provider: MARA POWERS MD Common Visit Codes: 57933-JWY/OBS DISCH DAY >30min MARA POWERS MD May 31, 2024 11:39
[2024-05-31 13:00] VITALS: BP 126/66; PULSE 67; RESP 17; TEMP 97.5; O2SAT 97
[2024-05-31 16:58] VITALS: BP 154/62; PULSE 65; RESP 16; TEMP 98.2; O2SAT 99
--- NOTE | 2024-05-31 22:20 | DVHPN2 ---
Progress Note - Dictate Date Seen: May 31, 2024 Medical Necessity Reason Pt with a Central, PICC or Fol: No Subjective Patient was seen and evaluated in follow up. Patient has no new complaints at this time. Patient denies any cardiac symptoms. Patient is cardiac stable for discharge. vital signs Vital Sign Date Time Temp Pulse Resp B/P (MAP) Pulse Ox O2 Delivery O2 Flow Rate FiO2 05/31/24 09:00 97.1 74 15 160/84 (109) 92 97.1 05/31/24 07:30 Nasal Cannula* 2 28 Total Intake and Output 05/30/24 05/30/24 05/31/24 15:00 23:00 07:00 Intake Total 100 ml 1450 ml 414 ml Balance 100 ml 1450 ml 414 ml medications Current Medications Medications Dose Ordered Sig/Eduardo Route Start Time Stop Time Status Last Admin Dose Admin Diagnostic Test (Pha) 1 strip ACHS 05/27/24 11:30 05/31/24 11:42 1 STRIP Insulin Human Regular ACHS SC 05/27/24 11:30 05/31/24 11:42 3 UNITS Dextrose 50 ml UD PRN IV 05/27/24 11:00 Ceftriaxone Sodium 50 ml @ 100 mls/hr DAILY@09 IV 05/28/24 09:00 05/31/24 08:17 100 MLS/HR Azithromycin 250 ml @ 125 mls/hr DAILY IV 05/28/24 10:00 05/31/24 10:00 125 MLS/HR Atorvastatin Calcium 40 mg HS PO 05/27/24 22:00 05/30/24 20:57 40 MG Acetaminophen 650 mg Q6HP PRN PO 05/27/24 11:00 Ondansetron HCl 4 mg Q4HP PRN IV 05/27/24 11:00 05/27/24 12:41 4 MG Nitroglycerin 0.4 mg Q5MINP PRN SL 05/27/24 11:00 Morphine Sulfate 2 mg Q30M PRN IV 05/27/24 11:00 Amlodipine Besylate 10 mg DAILY PO 05/28/24 10:00 05/30/24 08:49 10 MG Calcium Acetate 667 mg TIDWM PO 05/27/24 12:27 05/31/24 08:17 667 MG Clonidine HCl 0.1 mg BID PO 05/27/24 22:00 05/30/24 20:56 0.1 MG Hydralazine HCl 25 mg TID PO 05/27/24 14:00 05/31/24 05:44 25 MG Levothyroxine Sodium 50 mcg QAM PO 05/28/24 07:00 05/31/24 05:44 50 MCG Metoprolol Succinate 50 mg DAILY PO 05/28/24 10:00 05/30/24 08:52 50 MG Pantoprazole Sodium 40 mg BID PO 05/27/24 22:00 05/31/24 08:17 40 MG Sucralfate 1 gm ACHS PO 05/27/24 12:26 05/31/24 05:44 1 GM Aspirin 81 mg DAILY PO 05/28/24 10:00 Losartan Potassium 100 mg DAILY PO 05/28/24 10:00 05/30/24 08:50 100 MG objective GENERAL: Awake, alert, oriented. LUNGS: Decreased breath sounds. CARDIOVASCULAR: Heart sounds are good. ABDOMEN: Soft. laboratory and microbiology Laboratory Tests 05/28/24 05:24 Test 05/28/24 05:24 Range/Units Serum Glucose 108 H 74-106 mg/dL Problem List Acute chest pain. Acute hypoxic respiratory failure. Acute right pleural effusion. Bilateral community-acquired pneumonia. ESRD on hemodialysis. Cirrhosis of liver. Diabetes. Hypertension. Hypercholesterolemia. Hypertensive emergency blood pressure. Acute CHF exacerbation. Assessment/Plan Continued all current supportive medical care. Amlodipine, Losartan, Hydralazine. Aspirin, Lipitor, Metoprolol. IV antibiotics as ordered. GI prophylactics. Morphine for pain management. Additional plan as per the hospital course. Plan discussed with: Patient OKSANA CABRAL MD May 31, 2024 12:14
== END 2024-05-31 19:00 | DRG 280 ==
LOC: EDBD 04:33 → ER 04:33 → TELE 11:00 → TELE-E-ADS 18:25 → EAST 05-28 14:01 → OVERFLOW 05-31 12:58 → EAST 05-31 13:04
PROVIDERS: ADMIT Family Medicine; ATTEND Family Medicine
PROC: 5A1D70Z Performance of Urinary Filtration, Intermittent, Less than 6 Hours Per Day (ICD-10-PCS; 2024-05-28)
PROC: 5A1D70Z Performance of Urinary Filtration, Intermittent, Less than 6 Hours Per Day (ICD-10-PCS; 2024-05-29)
PROC: 05HC33Z Insertion of Infusion Device into Left Basilic Vein, Percutaneous Approach (ICD-10-PCS; principal; 2024-05-30)
PROC: B54NZZA Ultrasonography of Left Upper Extremity Veins, Guidance (ICD-10-PCS; 2024-05-30)
DX: I13.2 Hypertensive heart and chronic kidney disease with heart failure and with stage 5 chronic kidney disease, or end stage renal disease (principal); I50.23 Acute on chronic systolic (congestive) heart failure; I21.A1 Myocardial infarction type 2; J96.01 Acute respiratory failure with hypoxia; N18.6 End stage renal disease; J15.69 Pneumonia due to other Gram-negative bacteria; J15.9 Unspecified bacterial pneumonia; E87.1 Hypo-osmolality and hyponatremia; I16.1 Hypertensive emergency; N17.9 Acute kidney failure, unspecified; D63.1 Anemia in chronic kidney disease; D69.6 Thrombocytopenia, unspecified; I25.10 Atherosclerotic heart disease of native coronary artery without angina pectoris; E78.00 Pure hypercholesterolemia, unspecified; E11.22 Type 2 diabetes mellitus with diabetic chronic kidney disease; Z20.822 Contact with and (suspected) exposure to COVID-19; K74.60 Unspecified cirrhosis of liver; Z99.2 Dependence on renal dialysis; Z79.899 Other long term (current) drug therapy; Z87.442 Personal history of urinary calculi; Z87.891 Personal history of nicotine dependence; Z83.3 Family history of diabetes mellitus; Z82.49 Family history of ischemic heart disease and other diseases of the circulatory system; Z90.49 Acquired absence of other specified parts of digestive tract; Z99.81 Dependence on supplemental oxygen; I25.2 Old myocardial infarction
CPT/HCPCS: 36415; 71045; 74176; 80053; 80061; 82962; 83036; 83880; 84443; 84484; 85025; 87426; 87804; 90935; 93005; 93306; 96365; 96368; 96375; 97110; 97116; 97163; G0378; J1642; J1815; J2405

== ENCOUNTER 2025-03-27 09:46 | Inpatient (IN) | payer MEDICARE, MEDICAID ==
[~2025-03-27] VITALS: Ht 152.4 cm; Wt 64.2 kg
[~2025-03-27 09:46] MED LIST changes: +AMLO1TAB23 PO; +ATOR40TA52 PO; +CALCTAB28 PO; -CLON0.2T PO; +DORZ2SOL18 EACHEYE; +GAB100C PO; -HYDR25TA87 PO; -HYDR2TAB58 PO; -INSU1INJ19 SC; +IPRIH INH; +ISOS5TAB PO; -LEVO50TA7 PO; +LOSA-534 PO; -METO-289 PO; +SERT25TA28 PO
--- NOTE | 2025-03-27 09:55 | ECG ---
[facility] Test Date: 2025-03-27 Test Time: 09:52:50 Pat Name: LISBETH LANGSTON Department: Room: 0234T Gender: F Critical Power Technician: AGUSTÍN : 1965 Requested By: TENZIN FLORES Order Number: [id number] Reading MD: Maynor Pike Measurements Intervals [place] Rate: 94 P: -76 FL: 173 QRS: -28 QRSD: 91 T: 106 QT: 385 QTc: 482 Interpretive Statements Ectopic atrial rhythm Borderline left axis deviation Abnormal R-wave progression, late transition Repol abnrm suggests ischemia, lateral leads Baseline wander in lead(s) V3 Electronically Signed On 03-29-2025 19:30:03 PST by Maynor Pike Please click the below link to view image of tracing.
--- NOTE | 2025-03-27 11:07 | ED.PDOC ---
GI ASSESSMENT HPI Comments 59y F who presents to the ED for chief complaint of abdominal pain. Pt states she has been having diffusely located, non-radiating, aching, constant, abdominal pain for the past 5 days. Pt has been having associated nausea, vomiting, and diarrhea. Pt denies any changes to diet or sick contacts. Pt otherwise has stable vitals in the ED. Pt denies any other symptoms at this time. Chief Complaint: Abdominal Pain Time Seen by MD: 11:06 Primary Care Provider: UNKNOWN Reviewed Notes: Medications, Allergies Allergies: Coded Allergies: NO KNOWN ALLERGIES (Unverified , 07/06/20) Home Meds Active Scripts Calcium Acetate (PHOSLO CAPSULE) 667 Mg Cp, 1 CAP PO TID, #90 CAP 5 Refills Prov:MARA POWERS MD 08/10/21 Sucralfate (CARAFATE) 1 Gm Tab, 1 GM PO Q6HR for 14 Days, #56 TAB Prov:MARA POWERS MD 08/10/21 Pantoprazole Sodium Sesquihydr (Pantoprazole Sodium) 40 Mg Tab, 40 MG PO BID, #60 TAB Prov:MARA POWERS MD 08/10/21 Reported Medications Ferrous Sulfate (Ferosul) 325 Mg Tab, 1 TAB PO BID 03/27/25 Nifedipine (Nifedipine Er) 60 Mg Tab, 1 TAB PO BID for 90 Days, #180 05/29/24 Paroxetine (PAXIL TABLET) 20 Mg Tb, 10 MG PO DAILY for 30 Days, #30 05/29/24 Metoprolol Tartrate (LOPRESSOR TABLET) 50 Mg Tb, 1 TAB PO DAILY for 60 Days, #60 05/29/24 Alendronate Sodium (Alendronate Sodium) 70 Mg Tab, 1 TAB PO QWEEKLY for 84 Days, #12 05/29/24 Levothyroxine Sodium (Levothyroxine Sodium) 100 Mcg Cap, 1 TAB PO QAM for 60 Da ys, #60 05/29/24 Hydralazine Hcl (Hydralazine Hcl) 50 Mg Tab, 1 TAB PO TID for 60 Days, #180 05/29/24 Isosorbide Dinitrate (Isosorbide Dinitrate) 5 Mg Tab, 1 TAB PO TID for 30 Days, #90 05/27/24 Gabapentin (Gabapentin) 100 Mg Cap, 1 CAP PO TID 05/27/24 Dorzolamide-Timolol (Dorzolamide Hcl/Timolol M) 1 Ml Violeta, 1 DROP OP DAILY 05/27/24 Amlodipine Besylate (Amlodipine Besylate) 5 Mg Tab, 2 TAB PO DAILY 07/30/22 Glipizide (Glipizide) 10 Mg Tab, 10 MG PO BID for 30 Days, MG 07/29/21 Aspirin (Aspirin) 81 Mg Chw, 81 MG PO DAILY, TAB.CHEW 07/29/21 Clonidine Hydrochloride (Clonidine Hcl) 0.1 Mg Tab, 0.1 MG PO BID for 30 Days, MG 07/29/21 Losartan Potassium (Losartan Potassium) 100 Mg Tab, 100 MG PO DAILY for 30 Days, MG 07/29/21 Atorvastatin Calcium (Lipitor) 20 Mg Tab, 20 MG PO DAILY, TAB 07/29/21 Discontinued Scripts Doxycycline Monohydrate (Doxycycline Monohydrate) 100 Mg Cap, 1 CAP PO BID for 10 Days, #28 CAP Prov:LUI WAITE MD 07/31/22 Levofloxacin (Levaquin) 500 Mg Tab, 500 MG PO DAILY, #10 TAB Prov:MARA POWERS MD 08/10/21 Metronidazole (Flagyl) 500 Mg Tab, 500 MG PO TID, #30 TAB Prov:MARA POWERS MD 08/10/21 Information Source: Patient, Emergency Med Personnel Mode of Arrival: EMS Brought in by: EMS Timing: Days Duration: Since onset Past Medical History PAST MEDICAL HISTORY: DM, ESRD, High Lipids, HTN, Kidney Stones Surgical History: BTL, HOSPITAL ADMISSIONS OFFICER History: No Pertinent HOSPITAL ADMISSIONS OFFICER History Family History Family History: Family hx of DM, Family hx of HTN Social History Smoker: Quit Greater Than 1 Year Alcohol: Rarely Drugs: Denies Drug Use Lives In: Home Constitutional: denies: chills, diaphoresis, fatigue, fever, malaise, sweats, weakness, others EENTM: denies: blurred vision, double vision, ear bleeding, ear discharge, ear drainage, ear pain, ear ringing, eye pain, eye redness, hearing loss, mouth pain, mouth swelling, nasal discharge, nose bleeding, nose congestion, nose pain, photophobia, tearing, throat pain, throat swelling, voice changes, others Respiratory: denies: cough, hemoptysis, orthopnea, SOB at rest, shortness of breath, SOB with excertion, stridor, wheezing, others Cardiovascular: denies: chest pain, dizzy spells, diaphoresis, Dyspnea on exertion, edema, irregular heart beat, left arm pain, lightheadedness, palpitations, PND, syncope, others Gastrointestinal: reports: diarrhea, nausea, vomiting; denies: abdomen distended, abdominal pain, blood streaked bowels, constipated, dysphagia, difficulty swallowing, hematemesis, melena, poor appetite, poor fluid intake, rectal bleeding, rectal pain, others Genitourinary: denies: abnormal vagina bleeding, burning, dyspareunia, dysuria, flank pain, frequency, hematuria, incontinence, pain, , vagina discharge, urgency, others Neurological: denies: dizziness, fainting, headache, left sided numbness, left sided weakness, numbness, paresthesia, pre-existing deficit, right sided numbness, right sided weakness, seizure, speech problems, tingling, tremors, weakness, others Musculoskeletal: denies: back pain, gout, joint pain, joint swelling, muscle pain, muscle stiffness, neck pain, others Integumetry: denies: bruises, change in color, change in hair/nails, dryness, laceration, lesions, lumps, rash, wounds, others Allergic/Immunocompromised: denies: Difficulty Healing, Frequent Infections, Hives, Itching, others Hematologic/Lymphatic: denies: anemia, blood clots, easy bleeding, easy bruising, swollen glands, others Endocrine: denies: excessive hunger, excessive sweating, excessive thirst, excessive urination, flushing, intolerance to cold, intolerance to heat, unexplained weight gain, unexplained weight loss, others Psychiatric: denies: anxiety, bipolar disorder, depression, hopeless, panic disorder, schizophrenia, sleepless, suicidal, others All Other Systems: Reviewed and Negative Physical Exam General Appearance: No Apparent Distress, Normal HEENT: Normal ENT Inspection, Pharynx Normal, TMs Normal Neck: Full Range of Motion, Non-Tender, Normal, Normal Inspection Respiratory: Chest Non-Tender, Lungs Clear, No Accessory Muscle Use, No Respiratory Distress, Normal Breath Sounds Cardiovascular: No Edema, No JVD, No Murmur, No Gallop, Normal Peripheral Pulses, Regular Rate/Rhythm Breast Exam: Deferred Gastrointestinal: No Organomegaly, No Pulsatile Mass, Normal Bowel Sounds, Soft, Other (diffuse mild ttp with distension) Genitalia: Deferred Pelvic: Deferred Rectal: Deferred Extremities: No calf tenderness, Normal capillary refill, Normal inspection, Normal range of motion, Non-tender, No pedal edema Musculoskeletal : Apperance: Normal Neurologic: Alert, manager disaster recovery II-XII nml as Tested, No Motor Deficits, Normal Affect, Normal Mood, No Sensory Deficits Cerebellar Function: Normal Reflexes: Normal Skin: Dry, Normal Color, Warm Lymphatic: No Adenopathy Was a procedure done? Was a procedure done?: No GI differential Dx Differential Diagnosis: Cholecystitis, Constipation, Diverticular disease, Esophagitis, Gastritis/PUD, Gastroenteritis, GI hemorrhage, Pancreatitis, UTI, Food Poisoning, Bacterial, Viral, Anemia, Stress Ulcer, Kidney Stone X-Ray, Labs, Meds, VS Vital Signs Date Time Temp Pulse Resp B/P (MAP) Pulse Ox O2 Delivery O2 Flow Rate FiO2 03/27/25 12:00 103 20 119/40 03/27/25 12:00 103 20 94 Room Air* 0 21 03/27/25 11:23 100 18 132/63 (86) 97 03/27/25 09:52 94 03/27/25 09:48 98.0 90 18 137/60 99 98.0 Lab Test 03/27/25 12:50 03/27/25 10:55 03/27/25 10:50 Range/Units Lactic Acid Level 3.8 *H 3.5 *H 0.4-2.0 mmol/L White Blood Count 6.4 4.4-10.8 10^3/uL Red Blood Count 2.19 L 4.0-5.20 10^6/uL Hemoglobin 7.0 *L 12.2-16.2 g/dL Hematocrit 22.2 L 36.0-46.0 % Mean Corpuscular Volume 101.5 H 80.0-100.0 fL Mean Corpuscular Hemoglobin 31.9 28.0-32.0 pg Mean Corpuscular Hemoglobin Concent 31.4 L 32.0-36.0 g/dL Red Cell Distribution Width 17.5 H 11.8-14.3 % Platelet Count 133 L 140-450 10^3/uL Mean Platelet Volume 9.8 6.9-10.8 fL Neutrophils (%) (Auto) 72.7 37.0-80.0 % Lymphocytes (%) (Auto) 17.6 10.0-50.0 % Monocytes (%) (Auto) 7.9 0.0-12.0 % Eosinophils (%) (Auto) 0.8 0.0-7.0 % Basophils (%) (Auto) 1.0 0.0-2.0 % Neutrophils # (Auto) 4.6 1.6-8.6 10 ^3/uL Lymphocytes # (Auto) 1.1 0.4-5.4 10 ^3/uL Monocytes # (Auto) 0.5 0-1.3 10 ^3/uL Eosinophils # (Auto) 0 0-0.8 10 ^3/uL Basophils # (Auto) 0.1 0-0.2 10 ^3/uL Nucleated Red Blood Cells 0.7 % Platelet Estimate Decreased Macrocytosis Slight Stomatocytes Few Reticulocyte Count (auto) 4.24 H 0.5-1.5 % Sodium Level 140 136-145 mmol/L Potassium Level 4.3 3.5-5.1 mmol/L Chloride Level 98 98-107 mmol/L Carbon Dioxide Level 29 20-31 mmol/L Anion Gap 13 5-15 Blood Urea Nitrogen 46 H 9-23 mg/dL Creatinine 4.92 H 0.550-1.02 mg/dL Glomerular Filtration Rate Calc 9 >90 mL/min BUN/Creatinine Ratio 9.3 L 10.0-20.0 Serum Glucose 223 H 74-106 mg/dL Hemoglobin A1c 6.2 H <5.7 % A1C Calcium Level 8.9 8.7-10.4 mg/dL Iron Level 185 H 50-170 ug/dL Total Iron Binding Capacity 192 L 250-425 ug/dL Percent Iron Saturation 96.4 H 15-50 % Ferritin > 3300.0 H 10-291 ng/mL Troponin I High Sensitivity 78 *H </=34 ng/L B-Type Natriuretic Peptide 528.41 0-100 pg/mL Lipase 52 12-53 U/L Vitamin B12 Level 2247 H 211-911 pg/mL Vitamin D 25-Hydroxy Pending Folic Acid 34.21 >5.38 ng/mL Stool Occult Blood Positive Negative Stool Occult Blood Sample #3 Negative Stool for White Cells None seen Current Medications Medications (Trade) Dose Ordered Sig/Eduardo Route Start Time Stop Time Status Last Admin Sodium Chloride 1,000 ml @ 1,000 mls/hr Q1H ONCE IV 03/27/25 10:45 03/27/25 11:44 DC 03/27/25 12:00 Morphine Sulfate 4 mg ONCE ONCE IV 03/27/25 10:45 03/27/25 10:46 DC 03/27/25 12:00 Ondansetron HCl (Zofran) 4 mg ONCE ONCE IV 03/27/25 10:45 03/27/25 10:46 DC 03/27/25 12:00 X-Ray, Labs, Meds, VS Comment 59-year-old female here today with a presentation consistent with the acute renal failure, volume overload with a new diagnosis of pleural effusions seen on chest x-ray, cirrhosis, and lactic acidosis. Patient admitted for further management and care. Time of 1ST Reevaluation: 11:30 Reevaluation 1ST: Unchanged Patient Education/Counseling: Diagnosis, Treatment Family Education/Counseling: Diagnosis, Treatment SEPSIS Sepsis Screen Date sepsis recognized/suspect: Mar 27, 2025 Time Sepsis recognized/suspect: 947 Recent Procedure: No On Antibiotic Therapy: No Respiratory Rate >20: No Heart Rate >90: No Temp<36 C (96.8 F) or >38.3 C: No SBP <90 or MAP <65 mmHG: No New Acute Mental Status Change: No Is the patient on CPAP, BIPAP,: No Physician Orders Urinalysis (03/27/25 10:32) Ct Ab Pel Wo Con-No Oral Or Iv (03/27/25 10:32) Vital Signs Date Time Temp Pulse Resp B/P (MAP) Pulse Ox O2 Delivery O2 Flow Rate FiO2 03/27/25 12:00 103 20 119/40 03/27/25 12:00 103 20 94 Room Air* 0 21 03/27/25 11:23 100 18 132/63 (86) 97 03/27/25 09:52 94 03/27/25 09:48 98.0 90 18 137/60 99 98.0 Laboratory Tests Test 03/27/25 10:55 03/27/25 12:50 Lactic Acid Level 3.5 mmol/L (0.4-2.0) *H 3.8 mmol/L (0.4-2.0) *H White Blood Count 6.4 10^3/uL (4.4-10.8) Medications Medications Dose Ordered Sig/Eduardo Route Start Time Stop Time Status Last Admin Dose Admin Morphine Sulfate 4 mg ONCE ONCE IV 03/27/25 10:45 03/27/25 10:46 DC 03/27/25 12:00 Ondansetron HCl 4 mg ONCE ONCE IV 03/27/25 10:45 03/27/25 10:46 DC 03/27/25 12:00 Sodium Chloride 1,000 ml @ 1,000 mls/hr Q1H ONCE IV 03/27/25 10:45 03/27/25 11:44 DC 03/27/25 12:00 Departure 1 Departure Time of Disposition: 19:35 Impression: Primary Impression: Acute renal failure Additional Impressions: Lactic acidosis Anemia Abdominal pain Disposition: ADMITTED INPATIENT Admit to: Tele Condition: Guarded Critical Care Note Critical Care Time?: Yes (35 min-critical care time only) Stability Stability form required: No Heart Score Heart Score: Heart Score Response (Comments) Value History N/A 0 EKG N/A 0 Age N/A 0 Risk Factors N/A 0 Troponin N/A 0 Total 0 I personally scribed for TENZIN FLORES MD ([email or web address]) on 03/27/25 at 11:07. Electronically submitted by Cesilia Melton ([facility] [email or web address]). TENZIN FLORES MD Mar 27, 2025 11:07
[2025-03-27 11:12] LABS: Hematocrit 22.2 % (36.0-46.0); Mean Corpuscular Hemoglobin 31.9 pg (28.0-32.0); Mean Corpuscular Volume 101.5 fL (80.0-100.0); Nucleated Red Blood Cells % 0.7 %
[2025-03-27 11:23] LABS: Hemoglobin 7.0 g/dL (12.2-16.2)
[2025-03-27 11:27] LABS: Lactic Acid w/Reflex 3.5 mmol/L (0.4-2.0)
[2025-03-27 11:48] LABS: Potassium 4.3 mmol/L (3.5-5.1); Sodium 140 mmol/L (136-145)
[2025-03-27 11:49] LABS: Anion Gap 13 (5-15); Carbon Dioxide 29 mmol/L (20-31)
[2025-03-27 11:50] LABS: Calcium 8.9 mg/dL (8.7-10.4)
[2025-03-27 11:53] LABS: Chloride 98 mmol/L (98-107)
[2025-03-27 11:55] LABS: BUN/Creatinine Ratio 9.3 (10.0-20.0)
[2025-03-27 11:57] LABS: Glucose 223 mg/dL (74-106)
[2025-03-27 11:58] LABS: Blood Urea Nitrogen 46 mg/dL (9-23)
[2025-03-27 12:00] VITALS: PULSE 103; RESP 20; O2SAT 94
[2025-03-27] MEDS: SODIUM CHLORIDE 0.9% 1,000 ML IV ONE (12:00)
[2025-03-27] MEDS: ONDANSETRON HCL 4 MG/2 ML VIAL IV ONE (12:00)
[2025-03-27] MEDS: MORPHINE SULFATE 4 MG/ML SYR/VIAL IV ONE (12:00)
[2025-03-27 12:23] LABS: Macrocytosis Slight
[2025-03-27 12:24] LABS: Stomatocytes Few
--- NOTE | 2025-03-27 13:18 | DVH ---
EXAM: CT CT AB PEL WO CON-NO ORAL OR IV History: diffuse abd tenderness Comparison Study: CT CT AB PEL WO CON-NO ORAL OR IV on DOS: 05/27/24, CT ABD PELVIS WO CONTRAST on DOS: 03/11/22, [facility] on DOS: 07/29/21 TECHNIQUE: Multidetector CT of the abdomen AND PELVIS without IV contrast. Axial, coronal and sagittal multiplanar reformats were obtained from the axial data set by the technologist. Radiation Dose Information: CT Dose: CTDI volume is 7.81 mGy. Dose-length product is 3.92 mGy*cm FINDINGS: Large right-sided pleural effusion with associated atelectasis. Mild cardiomegaly. Cirrhotic appearing Liver. Otherwise, liver, spleen, pancreas and adrenal glands are unremarkable. Status post cholecystectomy. Atrophy of bilateral kidneys. Bilateral renal vascular calcifications noted. Nonobstructing 7 mm left renal lower pole calculus. 1.3 cm left renal lower pole cyst. No [place] nephrosis bilaterally. Bilateral ureters unremarkable. Limited evaluation of the urinary bladder due to decompressed state. Wall calcifications of the uterus. Moderate of the stomach filled ingested material. Small bowel loops are fluid- filled and nondistended. Appendix is not definitely visualized. Without visualization of the Appendix, can not exclude acute appendicitis. Large bowel is unremarkable. No evidence of intraperitoneal free air or free fluid. No evidence of aortic aneurysm. Moderate atherosclerotic calcification of the aorta and bilateral iliacs. No significant lymphadenopathy. Umbilical region soft tissue thickening ; unchanged from prior imaging. Minimal body wall edema. No evidence of acute osseous abnormalities. IMPRESSION: No evidence of acute abdominopelvic abnormalities. Cirrhotic appearing Liver. Nonobstructing left renal calculus small left renal cysts. Large right-sided pleural effusion with associated atelectasis.
[2025-03-27] MEDS ORDERED: HYDROcodone-ACET 5/325MG TAB PO PRN (14:15)
[2025-03-27] MEDS ORDERED: DOCUSATE SOD 100 MG CAP PO PRN (14:15)
[2025-03-27] MEDS ORDERED: NITROGLYCERIN 0.4 MG SL TAB SL PRN (14:15)
[2025-03-27] MEDS ORDERED: ONDANSETRON HCL 4 MG/2 ML VIAL IV PRN (14:15)
[2025-03-27] MEDS ORDERED: MORPHINE SULFATE INJ 2 MG/ml SYRG IV PRN (14:15)
[2025-03-27] MEDS ORDERED: FERR325T20 PO (14:17)
[2025-03-27 14:33] LABS: Alanine Aminotransferase 39 U/L (7-40); Anion Gap 9 (5-15); BUN/Creatinine Ratio 9.1 (10.0-20.0); Calcium 8.9 mg/dL (8.7-10.4); Carbon Dioxide 29 mmol/L (20-31); Chloride 102 mmol/L (98-107); Potassium 3.9 mmol/L (3.5-5.1); Sodium 140 mmol/L (136-145); Total Protein 6.1 g/dL (5.7-8.2)
[2025-03-27 14:34] LABS: Albumin 3.2 g/dL (3.2-4.8)
[2025-03-27 14:38] LABS: Alkaline Phosphatase 158 U/L (46-116); Bilirubin, Total 0.3 mg/dL (0.2-1.0); Blood Urea Nitrogen 45 mg/dL (9-23); Glucose 217 mg/dL (74-106)
[2025-03-27] MEDS ORDERED: DEXTROSE (50%) 50ML SYRG IV PRN (14:45)
[2025-03-27 14:46] LABS: INR 1.19 (0.9-1.15); Partial Thromboplastin Time 28.4 SEC (24.5-34.5); Prothrombin Time 12.4 sec (9.3-11.8)
--- NOTE | 2025-03-27 15:10 | DVHHP2 ---
History of Present Illness Reason for Visit: Abdominal pain History of Present Illness Trina Forbes is a 59-year-old female with past medical history of ESRD on HD, hypertension, hyperlipidemia, PUD, and diabetes, who came to the hospital for abdominal pain. Patient was recently admitted at [facility] for similar complaints. At that time she did have an EGD completed and she was diagnosed with PUD. She also had a thoracentesis completed. She did not require a blood transfusion at that time. Patient states he lower abdomen, epigastric area hurts. She is anxious, short of breath, and feels palpitations. is at bedside. He helps take care of her, she is a poor histroian. He states she has been having diarrhea for about 2 weeks, and it is black at times. Cardiovascular: HTN, hyperipidemia Renal/: Chronic renal failure Endocrine: Diabetes Past Surgical History: Cholecystectomy, , Tubal Ligation Smoke: No ALCOHOL: none Drugs: None Lives: with Family Domestic Violence: Neg Review of Systems Constitutional: Yes: Weakness, Malaise; No: Fever, Chills, Sweats, Other Eyes: No: Pain, Vision change, Conjunctivae inflammation, Eyelid inflammation, Other, Redness ENT: No: Ear pain, Ear discharge, Nose pain, Nose discharge, Nose congestion, Mouth pain, Mouth swelling, Throat pain, Throat swelling, Other Respiratory: No: Cough, Dry, Shortness of breath, SOB with excertion, Wheezing, Hemoptysis, Pleuritic Pain, Sputum, Wheezing, Other Cardiovascular: Palpitations; No: Chest Pain, Orthopnea, Paroxysmal Noc. Dyspnea, Edema, Lt Headedness, Other Gastrointestinal: Abdominal Pain, Diarrhea; No: Nausea, Vomiting, Constipation, Melena, Hematochezia, Other Genitourinary: No Dysuria, No Frequency, No Incontinence, No Hematuria, No Retention, No Other Musculoskeletal: No: other, neck pain, shoulder pain, arm pain, back pain, hand pain, leg pain, foot pain Skin: No: Rash, Lesions, Jaundice, Bruising, Other Neurological: Other (anxious); No: Weakness, Numbness, Incoordination, Change in speech, Confusion, Seizures Allergies: Coded Allergies: NO KNOWN ALLERGIES (Unverified , 07/06/20) Medications Current Medications Medications Dose Ordered Sig/Eduardo Route Start Time Stop Time Status Last Admin Dose Admin Acetaminophen/ Hydrocodone Bitart 1 tab Q4HP PRN PO 03/27/25 14:15 UNV Ondansetron HCl 4 mg Q4HP PRN IV 03/27/25 14:15 UNV Docusate Sodium 100 mg BIDPRN PRN PO 03/27/25 14:15 UNV Acetaminophen 650 mg Q6HP PRN PO 03/27/25 14:15 UNV Nitroglycerin 0.4 mg Q5MINP PRN SL 03/27/25 14:15 UNV Morphine Sulfate 2 mg Q30M PRN IV 03/27/25 14:15 UNV Atorvastatin Calcium 20 mg DAILY PO 03/28/25 10:00 UNV Patient Own Medication 1 tab QAM PO 03/28/25 07:00 UNV Exam Vital Signs Vital Signs Date Time Temp Pulse Resp B/P (MAP) Pulse Ox O2 Delivery O2 Flow Rate FiO2 03/27/25 12:00 103 20 119/40 03/27/25 12:00 94 Room Air* 0 21 03/27/25 09:48 98.0 98.0 General Appearance: Alert, Oriented X3, moderate distress HEENT: Atraumatic, PERRLA Cardiovascular: Normal S1, Normal S2, Other (SR-ST) Abdominal: Normal bowel sounds, Soft, Other (Tender to palpitation) Extremities: No clubbing, No cyanosis, No edema, Normal pulses, No tenderness/swelling Skin: No rashes, No breakdown, No significant lesion Neuro: Other (generalized weakness) Psych/Mental Status: Other (anxious) Labs/Xrays Labs Test 03/27/25 14:08 03/27/25 12:50 03/27/25 10:55 Range/Units Lactic Acid Level 3.8 *H 0.4-2.0 mmol/L White Blood Count 6.4 4.4-10.8 10^3/uL Red Blood Count 2.19 L 4.0-5.20 10^6/uL Hemoglobin 7.0 *L 12.2-16.2 g/dL Hematocrit 22.2 L 36.0-46.0 % Mean Corpuscular Volume 101.5 H 80.0-100.0 fL Mean Corpuscular Hemoglobin 31.9 28.0-32.0 pg Mean Corpuscular Hemoglobin Concent 31.4 L 32.0-36.0 g/dL Red Cell Distribution Width 17.5 H 11.8-14.3 % Platelet Count 133 L 140-450 10^3/uL Mean Platelet Volume 9.8 6.9-10.8 fL Neutrophils (%) (Auto) 72.7 37.0-80.0 % Lymphocytes (%) (Auto) 17.6 10.0-50.0 % Monocytes (%) (Auto) 7.9 0.0-12.0 % Eosinophils (%) (Auto) 0.8 0.0-7.0 % Basophils (%) (Auto) 1.0 0.0-2.0 % Neutrophils # (Auto) 4.6 1.6-8.6 10 ^3/uL Lymphocytes # (Auto) 1.1 0.4-5.4 10 ^3/uL Monocytes # (Auto) 0.5 0-1.3 10 ^3/uL Eosinophils # (Auto) 0 0-0.8 10 ^3/uL Basophils # (Auto) 0.1 0-0.2 10 ^3/uL Nucleated Red Blood Cells 0.7 % Platelet Estimate Decreased Macrocytosis Slight Stomatocytes Few Troponin I High Sensitivity 78 *H </=34 ng/L B-Type Natriuretic Peptide 528.41 0-100 pg/mL Lipase 52 12-53 U/L EXAM: CT CT AB PEL WO CON-NO ORAL OR IV FINDINGS: Large right-sided pleural effusion with associated atelectasis. Mild cardiomegaly. Cirrhotic appearing Liver. Otherwise, liver, spleen, pancreas and adrenal glands are unremarkable. Status post cholecystectomy. Atrophy of bilateral kidneys. Bilateral renal vascular calcifications noted. Nonobstructing 7 mm left renal lower pole calculus. 1.3 cm left renal lower pole cyst. No [place] nephrosis bilaterally. Bilateral ureters unremarkable. Limited evaluation of the urinary bladder due to decompressed state. Wall calcifications of the uterus. Moderate of the stomach filled ingested material. Small bowel loops are fluid- filled and nondistended. Appendix is not definitely visualized. Without visualization of the Appendix, can not exclude acute appendicitis. Large bowel is unremarkable. No evidence of intraperitoneal free air or free fluid. No evidence of aortic aneurysm. Moderate atherosclerotic calcification of the aorta and bilateral iliacs. No significant lymphadenopathy. Umbilical region soft tissue thickening ; unchanged from prior imaging. Minimal body wall edema. No evidence of acute osseous abnormalities. IMPRESSION: No evidence of acute abdominopelvic abnormalities. Cirrhotic appearing Liver. Nonobstructing left renal calculus small left renal cysts. Large right-sided pleural effusion with associated atelectasis. SEPSIS Sepsis Screen Date sepsis recognized/suspect: Mar 27, 2025 Time Sepsis recognized/suspect: 947 Recent Procedure: No On Antibiotic Therapy: No Respiratory Rate >20: No Heart Rate >90: No Temp<36 C (96.8 F) or >38.3 C: No SBP <90 or MAP <65 mmHG: No New Acute Mental Status Change: No Is the patient on CPAP, BIPAP,: No Physician Orders Urinalysis (03/27/25 10:32) Ct Ab Pel Wo Con-No Oral Or Iv (03/27/25 10:32) Comprehensive Metabolic Panel (03/27/25 13:42) PTPTT (03/27/25 13:42) Admit (03/27/25 14:02) Code Status (03/27/25 14:02) Hydrocodone-Acet 5/325mg Tab ([place] (03/27/25 14:15) Ondansetron Hcl (Zofran) (03/27/25 14:15) Docusate Sodium Capsule (Colace Capsule) (03/27/25 14:15) Complete Blood Count (03/28/25 04:00) Comprehensive Metabolic Panel (03/28/25 04:00) Condition: Serious (03/27/25 14:02) Acetaminophen Tablet (Tylenol Tablet) (03/27/25 14:15) Clear Liq Diet (03/27/25 Dinner) Nitroglycerin Sublingual (Ntrostat Subli (03/27/25 14:15) Morphine Sulfate Injection (03/27/25 14:15) Stat Ekg For Chest Pain (03/27/25 14:02) Notify Md Of Changes From Base (03/27/25 14:02) Roll Up Guider Operator For 24 Hours (03/27/25 14:02) Emergency Dysrhythmia Protocol (03/27/25 14:02) Rhythm Strips Once Every Shift (03/27/25 14:02) Oxygen By Nasal Cannula (03/27/25 14:02) Obtain Consent For: (03/27/25 14:02) Packedcell-Noactive Bleeding (03/27/25 14:02) Type And Screen (03/27/25 14:02) Reticulocyte Count (03/27/25 14:02) Lactate Dehydrogenase (03/27/25 14:02) Obtain Consent For Anesthesia (03/27/25 14:02) Chest Xray 1 View (03/27/25 14:11) * [facility] (03/27/25 14:11) *[facility] (03/27/25 14:11) Atorvastatin (Lipitor) (03/28/25 10:00) (Nf) Levothyroxine Sodium (03/28/25 07:00) (Nf) Ferrous Sulfate (Ferosul) (03/27/25 22:00) Vital Signs Date Time Temp Pulse Resp B/P (MAP) Pulse Ox O2 Delivery O2 Flow Rate FiO2 03/27/25 12:00 103 20 119/40 03/27/25 12:00 103 20 94 Room Air* 0 21 03/27/25 11:23 100 18 132/63 (86) 97 03/27/25 09:52 94 03/27/25 09:48 98.0 90 18 137/60 99 98.0 Laboratory Tests Test 03/27/25 10:55 03/27/25 12:50 Lactic Acid Level 3.5 mmol/L (0.4-2.0) *H 3.8 mmol/L (0.4-2.0) *H White Blood Count 6.4 10^3/uL (4.4-10.8) Medications Medications Dose Ordered Sig/Eduardo Route Start Time Stop Time Status Last Admin Dose Admin Morphine Sulfate 4 mg ONCE ONCE IV 03/27/25 10:45 03/27/25 10:46 DC 03/27/25 12:00 4 MG Ondansetron HCl 4 mg ONCE ONCE IV 03/27/25 10:45 03/27/25 10:46 DC 03/27/25 12:00 4 MG Sodium Chloride 1,000 ml @ 1,000 mls/hr Q1H ONCE IV 03/27/25 10:45 03/27/25 11:44 DC 03/27/25 12:00 1,000 MLS/HR Assessment/Plan Assessment/Plan Assessment: Anemia, Possible GI bleed, Pleural effusion ESRD on HD, Hypertension, Hyperlipidemia, Diabetes, PUD, Plan: Admit to Tele, Nephrology consult, GI consult, Transfuse 1 unit PRBC, IV Protonix, Clear liquid diet, Stool for occult blood, Manage/Monitor H&H closely, Manage/Monitor electrolytes closely, Home medications reconciled, BP medications held due to hypotension, Plan discussed with: Patient, Spouse My Orders Orders - CATRINA EVANS Adryan MARINE FITTER Procedure Category Date Status Time Comprehensive LAB 03/27/25 In Process Metabolic Panel 13:42 PTPTT LAB 03/27/25 In Process 13:42 Admit ADMIT 03/27/25 Transmitted 14:02 Code Status CODE 03/27/25 Transmitted 14:02 Hydrocodone-Acet PHA 03/27/25 Logged 5/325mg Tab ([place] 14:15 Ondansetron Hcl PHA 03/27/25 Logged (Zofran) 14:15 Docusate Sodium PHA 03/27/25 Logged Capsule (Colace 14:15 Complete Blood Count LAB 03/28/25 Verified 04:00 Comprehensive LAB 03/28/25 Verified Metabolic Panel 04:00 Condition: Serious [place] 03/27/25 In Process 14:02 Acetaminophen Tablet PHA 03/27/25 Logged (Tylenol Tablet) 14:15 Clear Liq Diet DIET 03/27/25 Transmitted Dinner Nitroglycerin PHA 03/27/25 Logged Sublingual (Ntrostat 14:15 Morphine Sulfate PHA 03/27/25 Logged Injection 14:15 Stat Ekg For Chest [facility] 03/27/25 In Process Pain 14:02 Notify Of Changes [facility] 03/27/25 In Process From Base 14:02 Roll Up Guider Operator For [place] 03/27/25 In Process 24 Hours 14:02 Emergency Dysrhythmia [facility] 03/27/25 In Process Protocol 14:02 Rhythm Strips Once [facility] 03/27/25 In Process Every Shift 14:02 Oxygen By Nasal RT 03/27/25 Transmitted Cannula 14:02 Obtain Consent For: ORDERS 03/27/25 Transmitted 14:02 Packedcell-Noactive BBK 03/27/25 Logged Bleeding 14:02 Type And Screen BBK 03/27/25 Logged 14:02 Reticulocyte Count LAB 03/27/25 Logged 14:02 Lactate Dehydrogenase LAB 03/27/25 In Process 14:02 Obtain Consent For HARSH 12/9/25 In Process Anesthesia 14:02 Chest Xray 1 View XY 03/27/25 Logged 14:11 * [employer] [facility] CONS 03/27/25 Transmitted 14:11 *[facility] CONS 03/27/25 Transmitted -[place] 14:11 Atorvastatin (Lipitor) PHA 03/28/25 Logged 10:00 (Nf) Levothyroxine PHA 03/28/25 Logged Sodium 07:00 (Nf) Ferrous Sulfate PHA 03/27/25 Transmitted (Ferosul) 22:00 Date of Service: Mar 27, 2025 Billing Provider: CATRINA EVANS Common Visit Codes: [id number] INP/OBS CARE (HIGH) CATRINA EVANSP Mar 27, 2025 15:10
--- NOTE | 2025-03-27 15:32 | DVH ---
CHEST RADIOGRAPH INDICATION: pleural effusion TECHNIQUE: Single frontal view of the chest was obtained COMPARISON: XY CHEST XRAY 1 VIEW on DOS: 05/29/24, XY CHEST XRAY 1 VIEW on DOS: 05/27/24, XY CHEST PORTABLE on DOS: 07/29/22 FINDINGS: Lines and Tubes: Tunnel catheter in place right internal jugular vein. Lungs: Findings of pulmonary vascular congestion. Findings may represent fluid overload or congestive failure Pleura: Increasing right pleural effusion now occupying approximately a 3rd of the right lung field. No pneumothorax. Cardiomediastinal contours: Stable cardiomegaly Bones: No acute osseous abnormality. IMPRESSION: 1. Interval development of a right pleural effusion which was not present on 05/29/2024. It appears to be occupying approximately a 3rd of the right chest. Findings may represent fluid overload or congestive failure. Correlate clinically.
--- NOTE | 2025-03-27 16:12 | DVH ---
ULTRASOUND CHEST: REASON FOR EXAM: evaluate for thoracentesis. Pleural effusion. TECHNIQUE: Real-time scans in multiple planes were obtained through both sides of the chest. FINDINGS: There is small right pleural effusion. There is no left pleural effusion. IMPRESSION: Small right pleural effusion.
--- NOTE | 2025-03-27 16:31 | DVHCONRES ---
Date Seen: Mar 27, 2025 Resident Creating Document: LANCE REES RESIDENT History of Present Illness 59-year-old female presented to the ER with a chief complaint of abdominal pain and diarrhea for the past 2 weeks. Denies traveling., denies fever, reports chills. She underwent hemodialysis yesterday. Blackish diarrhea for the past 2 weeks. No sick contacts. She is experiencing 6 episodes of bowel movements every day. She was recently admitted in [facility] where she underwent thoracocentesis. Past medical history hypertension, dyslipidemia, ESRD on hemodialysis, peptic ulcer disease, diabetes mellitus Past surgical history: Cholecystectomy, , tubal ligation Social history: Denies smoking/drinking/drug use Patient seen and examined in the ER. Abdomen soft, but tender. Family History: FH: diabetes mellitus G8 MOTHER G8 FATHER Allergies: Coded Allergies: NO KNOWN ALLERGIES (Unverified , 07/06/20) Home Meds Active Scripts Calcium Acetate (PHOSLO CAPSULE) 667 Mg Cp, 1 CAP PO TID, #90 CAP 5 Refills Prov:MARA POWERS MD 08/10/21 Sucralfate (CARAFATE) 1 Gm Tab, 1 GM PO Q6HR for 14 Days, #56 TAB Prov:MARA POWERS MD 08/10/21 Pantoprazole Sodium Sesquihydr (Pantoprazole Sodium) 40 Mg Tab, 40 MG PO BID, #60 TAB Prov:MARA POWERS MD 08/10/21 Reported Medications Ferrous Sulfate (Ferosul) 325 Mg Tab, 1 TAB PO BID 03/27/25 Nifedipine (Nifedipine Er) 60 Mg Tab, 1 TAB PO BID for 90 Days, #180 05/29/24 Paroxetine (PAXIL TABLET) 20 Mg Tb, 10 MG PO DAILY for 30 Days, #30 05/29/24 Metoprolol Tartrate (LOPRESSOR TABLET) 50 Mg Tb, 1 TAB PO DAILY for 60 Days, #60 05/29/24 Alendronate Sodium (Alendronate Sodium) 70 Mg Tab, 1 TAB PO QWEEKLY for 84 Days, #12 05/29/24 Levothyroxine Sodium (Levothyroxine Sodium) 100 Mcg Cap, 1 TAB PO QAM for 60 Days, #60 05/29/24 Hydralazine Hcl (Hydralazine Hcl) 50 Mg Tab, 1 TAB PO TID for 60 Days, #180 05/29/24 Isosorbide Dinitrate (Isosorbide Dinitrate) 5 Mg Tab, 1 TAB PO TID for 30 Days, #90 05/27/24 Gabapentin (Gabapentin) 100 Mg Cap, 1 CAP PO TID 05/27/24 Dorzolamide-Timolol (Dorzolamide Hcl/Timolol M) 1 Ml Violeta, 1 DROP OP DAILY 05/27/24 Amlodipine Besylate (Amlodipine Besylate) 5 Mg Tab, 2 TAB PO DAILY 07/30/22 Glipizide (Glipizide) 10 Mg Tab, 10 MG PO BID for 30 Days, MG 07/29/21 Aspirin (Aspirin) 81 Mg Chw, 81 MG PO DAILY, TAB.CHEW 07/29/21 Clonidine Hydrochloride (Clonidine Hcl) 0.1 Mg Tab, 0.1 MG PO BID for 30 Days, MG 07/29/21 Losartan Potassium (Losartan Potassium) 100 Mg Tab, 100 MG PO DAILY for 30 Days, MG 07/29/21 Atorvastatin Calcium (Lipitor) 20 Mg Tab, 20 MG PO DAILY, TAB 07/29/21 Discontinued Scripts Doxycycline Monohydrate (Doxycycline Monohydrate) 100 Mg Cap, 1 CAP PO BID for 10 Days, #28 CAP Prov:LUI WAITE MD 07/31/22 Levofloxacin (Levaquin) 500 Mg Tab, 500 MG PO DAILY, #10 TAB Prov:MARA POWERS MD 08/10/21 Metronidazole (Flagyl) 500 Mg Tab, 500 MG PO TID, #30 TAB Prov:MARA POWERS MD 08/10/21 Current Medications Current Medications Medications (Trade) Dose Ordered Sig/Eduardo Route PRN Reason Start Time Stop Time Status Last Admin Acetaminophen/ Hydrocodone Bitart ([place] 5/325MG Tab) 1 tab Q4HP PRN PO MODERATE PAIN (4-6 PAIN SCALE) 03/27/25 14:15 Ondansetron HCl (Zofran) 4 mg Q4HP PRN IV NAUSEA / VOMITING 03/27/25 14:15 Docusate Sodium (Colace Capsule) 100 mg BIDPRN PRN PO FOR CONSTIPATION 03/27/25 14:15 Acetaminophen (Tylenol Tablet) 650 mg Q6HP PRN PO PAIN SCALE 1-3 OR TEMP>100.4 03/27/25 14:15 Nitroglycerin (Ntrostat Sublingual) 0.4 mg Q5MINP PRN SL FOR CHEST PAIN 03/27/25 14:15 Morphine Sulfate 2 mg Q30M PRN IV FOR CHEST PAIN 03/27/25 14:15 Atorvastatin Calcium (Lipitor) 20 mg HS PO 03/28/25 22:00 Levothyroxine Sodium (Synthroid Tablet) 100 mcg QAM@0600 PO 03/28/25 06:00 Ferrous Sulfate 325 mg BID PO 03/27/25 22:00 Diagnostic Test (Pha) (Accu-Chek Comfort Curve T) 1 strip ACHS 03/27/25 17:00 Insulin Human Regular (InsuLIN R) HS SC 03/27/25 22:00 Insulin Human Regular (InsuLIN R) AC SC 03/27/25 17:00 Dextrose 50 ml UD PRN IV Blood Sugar LESS THAN 60 03/27/25 14:45 Review of Systems Eyes: No Pain, No Vision change, No Conjunctivae inflammation, No Eyelid inflammation, No Other, No Redness ENT: No Ear pain, No Ear discharge, No Nose pain, No Nose discharge, No Nose congestion, No Mouth pain, No Mouth swelling, No Throat pain, No Throat swelling, No Other Cardiovascular: No Chest Pain, No Palpitations, No Orthopnea, No PND, No Edema, No Lt Headedness, No Other Respiratory: No Cough, No Dry, No Shortness of breath, No SOB with exertion, No Wheezing, No Hemoptysis, No Pleuritic Pain, No Sputum, No Other Gastrointestinal: Reports nausea but no vomiting, reports abdominal pain, diarrhea No Constipation, No Melena, No Hematochezia, No Other Genitourinary: No Dysuria, No Frequency, No Incontinence, No Hematuria, No Retention, No Other Musculoskeletal: No other, No neck pain, No shoulder pain, No arm pain, No back pain, No hand pain, No leg pain, No foot pain Skin: No Rash, No Lesions, No Jaundice, No Bruising, No Other Vital Signs Vital Signs Date Time Temp Pulse Resp B/P (MAP) Pulse Ox O2 Delivery O2 Flow Rate FiO2 03/27/25 12:00 103 20 119/40 03/27/25 12:00 94 Room Air* 0 21 03/27/25 09:48 98.0 98.0 Physical Exam Obese female patient sitting in a chair comfortably, mild acute distress General: obese afebrile, palor, mucosae are dry Cardiovascular: Regular S1 and S2. No murmurs, gallops or rubs. No JVD e levation. No pedal edema Respiratory: Normal B/L air entry on room air. Clear lung sounds on auscultation Abdomen: Soft, epigastric and lower abdomen tenderness, nondistended, normoactive bowel sounds, no rebound tenderness, no organomegaly, no masses Genitourinary: Deferred MSK/skin: Mobilizes 4 limbs. Skin is dry and warm Neurological: No motor, no sensitive deficits, normal speech. Pupils are isocoric and reactive. Psych/Mental Status: A/Ox3 Labs/Diagnostic Data Labs Test 03/27/25 14:08 03/27/25 12:50 03/27/25 10:55 Range/Units Prothrombin Time 12.4 H 9.3-11.8 sec Prothrombin Time INR 1.19 H 0.9-1.15 Activated Partial Thromboplast Time 28.4 24.5-34.5 SEC Sodium Level 140 136-145 mmol/L Potassium Level 3.9 3.5-5.1 mmol/L Chloride Level 102 98-107 mmol/L Carbon Dioxide Level 29 20-31 mmol/L Anion Gap 9 5-15 Blood Urea Nitrogen 45 H 9-23 mg/dL Creatinine 4.93 H 0.550-1.02 mg/dL Glomerular Filtration Rate Calc 9 >90 mL/min BUN/Creatinine Ratio 9.1 L 10.0-20.0 Serum Glucose 217 H 74-106 mg/dL Calcium Level 8.9 8.7-10.4 mg/dL Total Bilirubin 0.3 0.2-1.0 mg/dL Aspartate Amino Transferase (AST) 65 H 13-40 U/L Alanine Aminotransferase (ALT) 39 7-40 U/L Alkaline Phosphatase 158 H 46-116 U/L Lactate Dehydrogenase 247 H 120-246 U/L Total Protein 6.1 5.7-8.2 g/dL Albumin 3.2 3.2-4.8 g/dL Lactic Acid Level 3.8 *H 0.4-2.0 mmol/L White Blood Count 6.4 4.4-10.8 10^3/uL Red Blood Count 2.19 L 4.0-5.20 10^6/uL Hemoglobin 7.0 *L 12.2-16.2 g/dL Hematocrit 22.2 L 36.0-46.0 % Mean Corpuscular Volume 101.5 H 80.0-100.0 fL Mean Corpuscular Hemoglobin 31.9 28.0-32.0 pg Mean Corpuscular Hemoglobin Concent 31.4 L 32.0-36.0 g/dL Red Cell Distribution Width 17.5 H 11.8-14.3 % Platelet Count 133 L 140-450 10^3/uL Mean Platelet Volume 9.8 6.9-10.8 fL Neutrophils (%) (Auto) 72.7 37.0-80.0 % Lymphocytes (%) (Auto) 17.6 10.0-50.0 % Monocytes (%) (Auto) 7.9 0.0-12.0 % Eosinophils (%) (Auto) 0.8 0.0-7.0 % Basophils (%) (Auto) 1.0 0.0-2.0 % Neutrophils # (Auto) 4.6 1.6-8.6 10 ^3/uL Lymphocytes # (Auto) 1.1 0.4-5.4 10 ^3/uL Monocytes # (Auto) 0.5 0-1.3 10 ^3/uL Eosinophils # (Auto) 0 0-0.8 10 ^3/uL Basophils # (Auto) 0.1 0-0.2 10 ^3/uL Nucleated Red Blood Cells 0.7 % Platelet Estimate Decreased Macrocytosis Slight Stomatocytes Few Reticulocyte Count (auto) 4.24 H 0.5-1.5 % Troponin I High Sensitivity 78 *H </=34 ng/L B-Type Natriuretic Peptide 528.41 0-100 pg/mL Lipase 52 12-53 U/L Assessment Abdominal pain with diarrhea, likely infectious gastroenteritis ? GI bleed 2-3 cm sliding-type hiatal hernia History of grade a to B linear erosive esophagitis 2021 Anemia likely macrocytic Cirrhosis ESRD on hemodialysis Right-sided pleural effusion Lactic acidosis NSTEMI Transaminitis Hypertension Dyslipidemia Thyroid disease Obesity History of cholecystectomy CT abdomen shows cirrhotic appearing liver, nonobstructing left renal calculus, large right-sided pleural effusion Upper EGD 08/03/2021 showed 2-3 cm sliding-type hiatal hernia with grade a to B linear erosive esophagitis. Mild gastroduodenitis. Superficial erosion. She was recently seen at [place] where she underwent thoracocentesis Plan: Recommendation: Dr. Wu Patient appears to be septic at this time. Continue with IV fluids, IV ceftriaxone and metronidazole, NPO except ice chips. Two large IV lines. Avoid NSAIDs/anticoagulation at this time Transfuse to keep hemoglobin greater than 7 g per dL. Monitor H&H. Protonix 40 mg b.i.d., Carafate b.i.d. Follow up with the stool WBC, stool culture, C diff, ova and parasite Follow up with iron panel, ferritin, B12, D Nephrology consultation appreciated Follow up with the ESR and CRP, hepatitis panel We will continue to follow up Thank you for consulting GI Plan discussed with patient in which all questions have been answered Case discussed Dr. Wu Plan discussed with: Patient, Spouse (At bedside) LANCE REES RESIDENT Mar 27, 2025 16:31
[2025-03-27 16:45] VITALS: PULSE 95; RESP 19; O2SAT 95
[2025-03-27 17:40] LABS: Ferritin > 3300.0 ng/mL (10-291)
[2025-03-27] MEDS: ACCU-CHEK COMFORT CURVE STRIP VI SCH (18:10)
[2025-03-27 18:16] LABS: Iron 185.0 ug/dL (50-170); Total Iron Binding Capacity 192.0 ug/dL (250-425)
[2025-03-27] MEDS: PANTOPRAZOLE 40 MG/10 ML VIAL INJ IV ONE (18:36)
[2025-03-27] MEDS: SUCRALFATE 1 GM/10 ML ORAL SUSP PO ONE (18:36)
[2025-03-27 18:40] VITALS: BP 151/45; PULSE 99; RESP 18; TEMP 98.7
[2025-03-27 19:00] VITALS: BP 158/51; PULSE 98; RESP 18; TEMP 98.7
[2025-03-27 19:15] VITALS: BP 152/47; PULSE 97; RESP 18; TEMP 98.5
[2025-03-27] MEDS: InsuLIN REG 1unit/0.01ml Soln (100units/ml) SC SCH ×2 (19:20→22:57)
[2025-03-27 21:36] VITALS: BP 166/63; PULSE 96; RESP 20; TEMP 97.9
[2025-03-27] MEDS ORDERED: FERROUS SULFATE 325mg EC TAB PO SCH (22:00)
[2025-03-27] MEDS: SUCRALFATE 1 GM/10 ML ORAL SUSP PO SCH (22:42)
[2025-03-27] MEDS: PANTOPRAZOLE 40 MG/10 ML VIAL INJ IV SCH (22:44)
[2025-03-28] MEDS: LEVOTHYROXINE SODIUM 100 MCG TAB PO SCH (06:00)
[2025-03-28 07:40] VITALS: PULSE 89; RESP 15; O2SAT 100
[2025-03-28 07:44] LABS: Albumin 3.3 g/dL (3.2-4.8); Anion Gap 13 (5-15); BUN/Creatinine Ratio 6.7 (10.0-20.0); Calcium 9.0 mg/dL (8.7-10.4); Carbon Dioxide 22 mmol/L (20-31); Chloride 105 mmol/L (98-107); Potassium 3.7 mmol/L (3.5-5.1); Sodium 140 mmol/L (136-145); Total Protein 6.3 g/dL (5.7-8.2)
[2025-03-28 07:45] LABS: Bilirubin, Total 0.4 mg/dL (0.2-1.0)
[2025-03-28 07:55] LABS: Alanine Aminotransferase 46 U/L (7-40); Alkaline Phosphatase 140 U/L (46-116); Blood Urea Nitrogen 39 mg/dL (9-23); Glucose 110 mg/dL (74-106)
[2025-03-28 08:08] LABS: Hematocrit 26.3 % (36.0-46.0); Hemoglobin 8.9 g/dL (12.2-16.2); Mean Corpuscular Hemoglobin 32.0 pg (28.0-32.0); Mean Corpuscular Volume 94.6 fL (80.0-100.0)
[2025-03-28 09:46] LABS: Anisocytosis Slight; Total Cells Counted 100.0 (100)
[2025-03-28 09:47] LABS: COVID19 ANTIGEN SOFIA FIA POSITIVE (NEGATIVE)
[2025-03-28 11:06] LABS: Hepatitis A Total Antibody Positive (Negative); Hepatitis B Surface Antigen Negative (Negative); Hepatitis C Antibody Negative (Negative)
[2025-03-28] MEDS: ACETAMINOPHEN 325 MG TAB PO PRN (11:50)
--- NOTE | 2025-03-28 17:12 | DVHPN2 ---
Progress Note Date Seen: Mar 28, 2025 Resident Creating Document: LANCE REES RESIDENT Medical Necessity Reason Pt with a Central, PICC or Fol: No Subjective Review of Systems 59-year-old female presented to the ER with a chief complaint of abdominal pain and diarrhea for the past 2 weeks. Denies traveling., denies fever, reports chills. She underwent hemodialysis yesterday. Blackish diarrhea for the past 2 weeks. No sick contacts. She is experiencing 6 episodes of bowel movements every day. She was recently admitted in [facility] where she underwent thoracocentesis. Past medical history hypertension, dyslipidemia, ESRD on hemodialysis, peptic ulcer disease, diabetes mellitus Past surgical history: Cholecystectomy, , tubal ligation Social history: Denies smoking/drinking/drug use 03/27-Patient seen and examined in the ER. Abdomen soft, but tender. 03/28-Patient seen and examined in the ER bed 10. COVID positive. Two bowel movements which were black. Possible melena. Objective vital signs Vital Sign Date Time Temp Pulse Resp B/P (MAP) Pulse Ox O2 Delivery O2 Flow Rate FiO2 03/28/25 16:00 98.5 88 19 176/52 (93) 100 98.5 03/28/25 07:40 Nasal Cannula* 2 28 Total Intake and Output 03/27/25 03/27/25 03/28/25 15:00 23:00 07:00 Intake Total 1250 ml 100 ml Output Total 0 ml Balance 1250 ml 100 ml medications Current Medications Medications Dose Ordered Sig/Eduardo Route Start Time Stop Time Status Last Admin Dose Admin Acetaminophen/ Hydrocodone Bitart 1 tab Q4HP PRN PO 03/27/25 14:15 Ondansetron HCl 4 mg Q4HP PRN IV 03/27/25 14:15 Docusate Sodium 100 mg BIDPRN PRN PO 03/27/25 14:15 Acetaminophen 650 mg Q6HP PRN PO 03/27/25 14:15 03/28/25 11:50 650 MG Nitroglycerin 0.4 mg Q5MINP PRN SL 03/27/25 14:15 Morphine Sulfate 2 mg Q30M PRN IV 03/27/25 14:15 Atorvastatin Calcium 20 mg HS PO 03/28/25 22:00 Levothyroxine Sodium 100 mcg QAM@0600 PO 03/28/25 06:00 03/28/25 06:00 100 MCG Diagnostic Test (Pha) 1 strip ACHS 03/27/25 17:00 03/28/25 11:45 1 STRIP Insulin Human Regular HS SC 03/27/25 22:00 03/27/25 22:57 2 UNITS Insulin Human Regular AC SC 03/27/25 17:00 03/27/25 19:20 6 UNITS Dextrose 50 ml UD PRN IV 03/27/25 14:45 Ceftriaxone Sodium 50 ml @ 100 mls/hr DAILY@09 IV 03/28/25 09:00 03/28/25 09:43 100 MLS/HR Metronidazole 100 ml @ 100 mls/hr Q8HR IV 03/27/25 22:00 03/28/25 14:34 100 MLS/HR Pantoprazole Sodium 40 mg BID IV 03/27/25 22:00 03/28/25 09:43 40 MG Sucralfate 1 gm TID@0600,1130,2200 PO 03/27/25 22:00 03/28/25 11:50 1 GM Examination Obese female patient sitting in a chair comfortably, mild acute distress General: obese afebrile, palor, mucosae are dry Cardiovascular: Regular S1 and S2. No murmurs, gallops or rubs. No JVD elevation. No pedal edema Respiratory: Normal B/L air entry on room air. Clear lung sounds on auscultation Abdomen: Soft, epigastric and lower abdomen tenderness, nondistended, normoactive bowel sounds, no rebound tenderness, no organomegaly, no masses Genitourinary: Deferred MSK/skin: Mobilizes 4 limbs. Skin is dry and warm Neurological: No motor, no sensitive deficits, normal speech. Pupils are isocoric and reactive. Psych/Mental Status: A/Ox3 laboratory and microbiology Laboratory Tests 03/28/25 07:13 Test 03/28/25 07:13 Range/Units Serum Glucose 110 H 74-106 mg/dL Microbiology Date/Time Source Procedure Growth Status 03/27/25 10:50 Stool Stool Culture - Preliminary Resulted 03/27/25 10:50 Stool Shiga Toxin I & II - Final Resulted 03/27/25 10:50 Stool Clostridium difficile Toxin Assay - Final Resulted Labs and/or images reviewed: Labs reviewed by me, Image(s) reviewed by me Problem List/Assessment/Plan Problem List/Assessment/Plan Abdominal pain with diarrhea, likely infectious gastroenteritis ? GI bleed 2-3 cm sliding-type hiatal hernia History of grade a to B linear erosive esophagitis 2021 Anemia likely macrocytic Cirrhosis ESRD on hemodialysis Right-sided pleural effusion Lactic acidosis NSTEMI Transaminitis Hypertension Dyslipidemia Thyroid disease Obesity History of cholecystectomy CT abdomen shows cirrhotic appearing liver, nonobstructing left renal calculus, large right-sided pleural effusion Upper EGD 08/03/2021 showed 2-3 cm sliding-type hiatal hernia with grade a to B linear erosive esophagitis. Mild gastroduodenitis. Superficial erosion. She was recently seen at [place] where she underwent thoracocentesis Plan: Recommendation: Dr. Wu Patient is gastroenteritis likely in the setting of COVID. Continue with IV fluids, IV ceftriaxone and metronidazole, started clear liquid diet, Two large IV lines. Continue isolation. H&H up trended to 8.9. Avoid NSAIDs/anticoagulation at this time Transfuse to keep hemoglobin greater than 7 g per dL. Protonix 40 mg b.i.d., Carafate b.i.d. Stool occult positive, stool WBC none, C diff and prelim culture pending Iron panel consistent with chronic disease anemia. B12, folic acid normal. Nephrology consultation appreciated ESR CRP elevated,, hepatitis panel negative We will continue to follow up Thank you for consulting GI Plan discussed with patient in which all questions have been answered Case discussed Dr. Wu Plan discussed with: Patient My Orders My Orders Orders - LANCE REES Procedure Category Date Status Time Clear Liq Diet DIET 03/28/25 Transmitted Dinner CC Plasma Assessment Blood Product Administration S: 1900 LANCE REES Mar 28, 2025 17:12
[2025-03-28] MEDS: hydrALAZINE HCL 20 MG/ML VL IV ONE (17:38)
--- NOTE | 2025-03-28 18:31 | DVH ---
ULTRASOUND ABDOMEN, RIGHT UPPER QUADRANT LIMITED: REASON FOR EXAM: Transaminitis TECHNIQUE: Real-time sector scans in the transverse and longitudinal planes were obtained through the abdomen. FINDINGS: The liver demonstrates coarse echotexture. The liver surface appears mildly nodular, suggestive of cirrhosis. The liver measures 14.6 cm in length, not enlarged. There is no intrahepatic biliary ductal dilatation. The common bile duct measures 6 mm. The gallbladder is surgically absent. The visualized portion of the pancreas is unremarkable. The right kidney measures 8.2 cm. The left kidney measures 7.3 cm. There is no hydronephrosis or nephrolithiasis. There is no evidence of focal renal mass. There is a 1.7 cm anechoic cyst at the inferior pole of the left kidney Both kidneys demonstrate increased echogenicity. The visualized portions of the abdominal aorta demonstrate no evidence of aneurysmal dilatation. The visualized inferior vena cava is unremarkable. There is trace ascites. There is a right pleural effusion. IMPRESSION: Coarse hepatic echotexture with possible mildly nodular surface suggestive of cirrhosis. Trace ascites. Right pleural effusion. Atrophic and echogenic kidneys consistent with medical renal disease.
--- NOTE | 2025-03-28 18:49 | DVHPN2 ---
Assessment/Plan Assessment/Plan progress note 59 F with ESRD on HD MWF, R PLEF s/p thora in OSH, HFrEF 45%, HTN, obesity, esophagitis admitted for diarrhea for 1 week. On admission found to be tachycardic hypotensive, started on abx, pressors, fluids, bcx collected. also had black tarry stool, seen by GI. later found to have COVID 19 12/10 uncomfortable, abdominal pain, still having diarrhea, on o2 3LPM. tachycardic physical exam aox3 coarse breath sounds s1 s2 tachycardic abdomen mildly tender on palpation no LE edema labs ekg imaging reviewed assessment and plan abdominal pain likely infectious gastroenteritis COVID 19 PNA acute on chronic hypoxic RF on home o2 anemia blood loss LGIB erosive esophagitis HFrEF 45% chronic systolic HF hemorrhagic vs septic shock ESRD on HD cirrhosis R PLEF s/p thora lactic acidosis type 2 LA transaminitis HTN HLD hyperthyroidism obesity c/w abx ceft and flagy; pressor maintain MAP >60 fluid resuscitation HD per renal GI consult appreciated, pending colonoscopy no remdes iso kidney disease, holding decadron iso GIB maintain spo2 >92% transfuse to keep Hb >7 protonix, Carafate hold anti htn, allow transient hypertension diet clear dvt ppx hold full code condition critical prognosis poor critical care time 55 minutes Plan discussed with: Patient, Son Date of Service: Mar 28, 2025 Billing Provider: NATHALY QUINTANA MD Common Visit Codes: [id number] CARE 30-74 MIN NATHALY QUINTANA MD Mar 28, 2025 18:49
[2025-03-28] MEDS: NIFEdipine 10 MG CAP PO ONE (20:17)
[2025-03-28 21:22] VITALS: BP 111/50; PULSE 98; RESP 18; TEMP 98; O2SAT 100
[2025-03-28] MEDS: ATORVASTATIN 20 MG TAB PO SCH (22:30)
[2025-03-29] VITALS (9 sets, daily range): BP systolic 109–141; BP diastolic 50–82; PULSE 78–98; RESP 16–19; TEMP 97.6–98.4; O2SAT 97–100
[2025-03-29 06:37] LABS: Albumin 3.3 g/dL (3.2-4.8); Anion Gap 14 (5-15); BUN/Creatinine Ratio 11.6 (10.0-20.0); Carbon Dioxide 24 mmol/L (20-31); Chloride 101 mmol/L (98-107); Potassium 4.0 mmol/L (3.5-5.1); Sodium 139 mmol/L (136-145); Total Protein 6.2 g/dL (5.7-8.2)
[2025-03-29 06:40] LABS: Hematocrit 23.3 % (36.0-46.0); Hemoglobin 8.0 g/dL (12.2-16.2); Mean Corpuscular Hemoglobin 32.2 pg (28.0-32.0); Mean Corpuscular Volume 94.5 fL (80.0-100.0); Nucleated Red Blood Cells % 0.2 %
[2025-03-29 06:41] LABS: Alanine Aminotransferase 51 U/L (7-40); Alkaline Phosphatase 148 U/L (46-116); Blood Urea Nitrogen 79 mg/dL (9-23); Glucose 138 mg/dL (74-106)
[2025-03-29 06:42] LABS: Calcium 8.6 mg/dL (8.7-10.4); Magnesium 2.6 mg/dL (1.6-2.6)
[2025-03-29 06:48] LABS: Bilirubin, Total 0.3 mg/dL (0.2-1.0)
[2025-03-29] MEDS ORDERED: SODIUM CHL 0.9% 1000 ML BAG XX ONE (07:00)
--- NOTE | 2025-03-29 11:32 | DVHPN2 ---
Assessment/Plan Assessment/Plan progress note 59 F with ESRD on HD MWF, R PLEF s/p thora in OSH, HFrEF 45%, HTN, obesity, esophagitis admitted for diarrhea for 1 week. On admission found to be tachycardic hypotensive, started on abx, pressors, fluids, bcx collected. also had black tarry stool, seen by GI. later found to have COVID 19 12/10 uncomfortable, abdominal pain, still having diarrhea, on o2 3LPM. tachycardic / seen today, improved, baseline o2 rec, breathing comfortably with a mask, HD today. bp stable physical exam aox3 coarse breath sounds s1 s2 tachycardic abdomen mildly tender on palpation no LE edema labs ekg imaging reviewed assessment and plan abdominal pain likely infectious gastroenteritis COVID 19 PNA acute on chronic hypoxic RF on home o2 anemia blood loss LGIB erosive esophagitis HFrEF 45% chronic systolic HF hemorrhagic vs septic shock ESRD on HD cirrhosis R PLEF s/p thora lactic acidosis type 2 NH transaminitis HTN HLD hyperthyroidism obesity c/w abx ceft and flagy; pressor maintain MAP >60 fluid resuscitation HD per renal GI consult appreciated, pending colonoscopy no remdes iso kidney disease, holding decadron iso GIB maintain spo2 >92% transfuse to keep Hb >7 protonix, Carafate restart anti htn diet clear dvt ppx hold full code condition critical prognosis poor Plan discussed with: Patient, Other Date of Service: Mar 29, 2025 Billing Provider: NATHALY QUINTANA MD Common Visit Codes: [id number] INP/OBS CARE(HIGH) NATHALY QUINTANA MD Mar 29, 2025 11:32
--- NOTE | 2025-03-29 12:16 | DVHPN2 ---
Progress Note Date Seen: Mar 29, 2025 Resident Creating Document: LANCE REES RESIDENT Medical Necessity Reason Pt with a Central, PICC or Fol: No Subjective Review of Systems 59-year-old female presented to the ER with a chief complaint of abdominal pain and diarrhea for the past 2 weeks. Denies traveling., denies fever, reports chills. She underwent hemodialysis yesterday. Blackish diarrhea for the past 2 weeks. No sick contacts. She is experiencing 6 episodes of bowel movements every day. She was recently admitted in [facility] where she underwent thoracocentesis. Past medical history hypertension, dyslipidemia, ESRD on hemodialysis, peptic ulcer disease, diabetes mellitus Past surgical history: Cholecystectomy, , tubal ligation Social history: Denies smoking/drinking/drug use 03/27-Patient seen and examined in the ER. Abdomen soft, but tender. 03/28-Patient seen and examined in the ER bed 10. COVID positive. Two bowel movements which were black. Possible melena. 03/29 - patient seen and examined, abdomen nontender, 2 bowel movements. Diet increased to full liquids Objective vital signs Vital Sign Date Time Temp Pulse Resp B/P (MAP) Pulse Ox O2 Delivery O2 Flow Rate FiO2 03/29/25 09:32 141/58 03/29/25 09:04 97.6 86 16 97 97.6 03/28/25 21:22 Nasal Cannula* 2 28 Total Intake and Output 03/28/25 03/28/25 03/29/25 14:59 22:59 06:59 Intake Total 50 ml 100 ml 400 ml Output Total 0 ml Balance 50 ml 100 ml 400 ml medications Current Medications Medications Dose Ordered Sig/Eduardo Route Start Time Stop Time Status Last Admin Dose Admin Acetaminophen/ Hydrocodone Bitart 1 tab Q4HP PRN PO 03/27/25 14:15 Acetaminophen 650 mg Q6HP PRN PO 03/27/25 14:15 03/28/25 11:50 650 MG Morphine Sulfate 2 mg Q30M PRN IV 03/27/25 14:15 Atorvastatin Calcium 20 mg HS PO 03/28/25 22:00 03/28/25 22:30 20 MG Levothyroxine Sodium 100 mcg QAM@0600 PO 03/28/25 06:00 03/29/25 06:10 100 MCG Diagnostic Test (Pha) 1 strip ACHS 03/27/25 17:00 03/29/25 11:36 1 STRIP Insulin Human Regular HS SC 03/27/25 22:00 03/27/25 22:57 2 UNITS Insulin Human Regular AC SC 03/27/25 17:00 03/29/25 11:52 3 UNITS Dextrose 50 ml UD PRN IV 03/27/25 14:45 Ceftriaxone Sodium 50 ml @ 100 mls/hr DAILY@09 IV 03/28/25 09:00 03/29/25 09:21 100 MLS/HR Metronidazole 100 ml @ 100 mls/hr Q8HR IV 03/27/25 22:00 03/29/25 06:10 100 MLS/HR Pantoprazole Sodium 40 mg BID IV 03/27/25 22:00 03/29/25 09:19 40 MG Sucralfate 1 gm TID@0600,1130,2200 PO 03/27/25 22:00 03/29/25 11:33 1 GM Nifedipine 90 mg DAILY PO 03/29/25 10:00 Examination Obese female patient sitting in a chair comfortably, mild acute distress General: obese afebrile, palor, mucosae are dry Cardiovascular: Regular S1 and S2. No murmurs, gallops or rubs. No JVD elevation. No pedal edema Respiratory: Normal B/L air entry on room air. Clear lung sounds on auscultation Abdomen: Soft, epigastric and lower abdomen tenderness, nondistended, normoactive bowel sounds, no rebound tenderness, no organomegaly, no masses Genitourinary: Deferred MSK/skin: Mobilizes 4 limbs. Skin is dry and warm Neurological: No motor, no sensitive deficits, normal speech. Pupils are isocoric and reactive. Psych/Mental Status: A/Ox3 laboratory and microbiology Laboratory Tests 03/29/25 05:52 Test 03/29/25 05:52 Range/Units Serum Glucose 138 H 74-106 mg/dL Microbiology Date/Time Source Procedure Growth Status 03/27/25 10:50 Stool Stool Culture - Preliminary Resulted 03/27/25 10:50 Stool Shiga Toxin I & II - Final Resulted 03/27/25 10:50 Stool Clostridium difficile Toxin Assay - Final Resulted Labs and/or images reviewed: Labs reviewed by me, Image(s) reviewed by me Problem List/Assessment/Plan Problem List/Assessment/Plan Abdominal pain with diarrhea, likely infectious gastroenteritis ? GI bleed 2-3 cm sliding-type hiatal hernia History of grade a to B linear erosive esophagitis 2021 Anemia likely macrocytic Cirrhosis ESRD on hemodialysis Right-sided pleural effusion Lactic acidosis NSTEMI Transaminitis Hypertension Dyslipidemia Thyroid disease Obesity History of cholecystectomy CT abdomen shows cirrhotic appearing liver, nonobstructing left renal calculus, large right-sided pleural effusion Upper EGD 08/03/2021 showed 2-3 cm sliding-type hiatal hernia with grade a to B linear erosive esophagitis. Mild gastroduodenitis. Superficial erosion. She was recently seen at [facility] where she underwent thoracocentesis Plan: Recommendation: Dr. Wu Patient is gastroenteritis likely in the setting of COVID. Continue with IV fluids, IV ceftriaxone and metronidazole, increase diet to full liquids, Two large IV lines. Continue isolation. Follow up with GI Services outpatient for outpatient screening colonoscopy. H&H up trended to 8.9. Avoid NSAIDs/anticoagulation at this time Transfuse to keep hemoglobin greater than 7 g per dL. Protonix 40 mg b.i.d., Carafate b.i.d. Stool occult positive, stool WBC none, C diff and prelim culture pending Iron panel consistent with chronic disease anemia. B12, folic acid normal. Nephrology consultation appreciated ESR CRP elevated,, hepatitis panel negative We will continue to follow up Thank you for consulting GI Plan discussed with patient in which all questions have been answered Case discussed Dr. Wu Plan discussed with: Patient My Orders My Orders Orders - LANCE REES Procedure Category Date Status Time Clear Liq Diet DIET 03/28/25 Transmitted Dinner Nifedipine Er PHA 03/29/25 In Process (Procardia Xl 10:00 Chayo; Direct LAB 03/28/25 In Process 17:14 LIVER US 03/28/25 Resulted 17:14 CC Plasma Assessment Blood Product Administration S: 1900 LANCE REES RESIDENT Mar 29, 2025 12:15
--- NOTE | 2025-03-29 16:44 | DVHINCON2 ---
Date of service: Mar 29, 2025 Referring Physician Tanya Soria NP Reason for Consultation ESRD History of Present Illness Trina vail is a 59-year-old female with known history of ESRD on maintenance hemodialysis who presents for further evaluation and management of abdominal pain. Her clinical course has been notable for diagnosis of COVID 19 infection. She was seen earlier today, she is in respiratory isolation. She was responsive to my questioning in Latvian. She denied feeling shortness of breath at the time of my evaluation. Past Medical History ESRD Hypertension Anemia Allergies: Coded Allergies: NO KNOWN ALLERGIES (Unverified , 07/06/20) Home Meds Reported Medications Sertraline Hcl (Sertraline Hcl) 25 Mg Tab, 1 TAB PO DAILY for 90 Days, #90 03/28/25 Ipratropium [place] Hfa (Atrovent Hfa) 17 Mcg Aer, 1 PUFF INH QID for 50 Days, #12.9 03/28/25 Calcium Carbonate-Cholecalcife (Oysco 500+D 500-5 mg-Mcg) 1 Tab Tab, 1 TAB PO DAILY for 90 Days, #90 03/28/25 Pantoprazole Sodium Sesquihydr (Pantoprazole Sodium) 40 Mg Tab, 1 TAB PO BID for 30 Days, #60 03/28/25 Atorvastatin Calcium (ATORVASTATIN CALCIUM) 40 Mg Tab, 1 TAB PO DAILY for 30 Days, #30 03/28/25 Losartan Potassium (Losartan Potassium) 50 Mg Tab, 1 TAB PO DAILY for 30 Days, #30 03/28/25 Amlodipine Besylate (Amlodipine Besylate) 10 Mg Tab, 1 TAB PO DAILY for 90 Days, #90 03/28/25 Ferrous Sulfate (Ferosul) 325 Mg Tab, 1 TAB PO BID 03/27/25 Levothyroxine Sodium (Levothyroxine Sodium) 100 Mcg Cap, 1 TAB PO QAM for 60 Days, #60 05/29/24 Dorzolamide-Timolol (Dorzolamide Hcl/Timolol M) 1 Ml Violeta, 1 DROP EACHEYE BID for 50 Days, #10 ML 05/27/24 Aspirin (Aspirin) 81 Mg Chw, 81 MG PO DAILY for 30 Days, #30 07/29/21 Clonidine Hydrochloride (Clonidine Hcl) 0.1 Mg Tab, 1 TAB PO BID for 30 Days, # 60 07/29/21 Discontinued Reported Medications Amlodipine Besylate (Amlodipine Besylate) 5 Mg Tab, 2 TAB PO DAILY 07/30/22 Discontinued Scripts Doxycycline Monohydrate (Doxycycline Monohydrate) 100 Mg Cap, 1 CAP PO BID for 10 Days, #28 CAP Prov:LUI WAITE MD 07/31/22 Levofloxacin (Levaquin) 500 Mg Tab, 500 MG PO DAILY, #10 TAB Prov:MARA POWERS MD 08/10/21 Metronidazole (Flagyl) 500 Mg Tab, 500 MG PO TID, #30 TAB Prov:MARA POWERS MD 08/10/21 Current Medications Current Medications Medications (Trade) Dose Ordered Sig/Eduardo Route PRN Reason Start Time Stop Time Status Last Admin Atorvastatin Calcium (Lipitor) 20 mg HS PO 03/28/25 22:00 03/28/25 22:30 Nifedipine (Procardia Xl (Time-Release)) 90 mg DAILY PO 03/29/25 10:00 Family History: FH: diabetes mellitus G8 MOTHER G8 FATHER Review of Systems Limited and as per history of present illness otherwise all systems are reviewed and are noncontributory. H&P Exam Vital Signs/I&O Vital Sign Date Time Temp Pulse Resp B/P (MAP) Pulse Ox O2 Delivery O2 Flow Rate FiO2 03/29/25 13:00 97.6 91 19 133/62 (85) 100 97.6 03/29/25 08:00 Nasal Cannula* 2 28 Intake and Output 03/28/25 03/29/25 19:00 07:00 Intake Total 150 ml 400 ml Output Total 0 ml Balance 150 ml 400 ml Intake Oral 400 ml IV Total 150 ml Output Urine Total 0 ml Physical Exam Gen: nad heent: nc/at, mmm lungs: cta anteriorly cvs: no rub abd: soft, bowel sounds audible ext: no edema skin: no rash neuro: alert and oriented Labs/Diagnostic Data Labs/Diagnostic Data Laboratory Tests Test 03/29/25 11:34 03/29/25 06:15 03/29/25 05:52 03/28/25 22:42 Range/Units POC Glucose 175 H 157 H 103 70-106 mg/dl White Blood Count 7.9 4.4-10.8 10^3/uL Red Blood Count 2.47 L 4.0-5.20 10^6/uL Hemoglobin 8.0 L 12.2-16.2 g/dL Hematocrit 23.3 #L 36.0-46.0 % Mean Corpuscular Volume 94.5 80.0-100.0 fL Mean Corpuscular Hemoglobin 32.2 H 28.0-32.0 pg Mean Corpuscular Hemoglobin Concent 34.1 32.0-36.0 g/dL Red Cell Distribution Width 16.9 H 11.8-14.3 % Platelet Count 146 140-450 10^3/uL Mean Platelet Volume 9.4 6.9-10.8 fL Neutrophils (%) (Auto) 72.9 37.0-80.0 % Lymphocytes (%) (Auto) 16.5 10.0-50.0 % Monocytes (%) (Auto) 6.2 0.0-12.0 % Eosinophils (%) (Auto) 3.3 0.0-7.0 % Basophils (%) (Auto) 1.1 0.0-2.0 % Neutrophils # (Auto) 5.7 1.6-8.6 10 ^3/uL Lymphocytes # (Auto) 1.3 0.4-5.4 10 ^3/uL Monocytes # (Auto) 0.5 0-1.3 10 ^3/uL Eosinophils # (Auto) 0.3 0-0.8 10 ^3/uL Basophils # (Auto) 0.1 0-0.2 10 ^3/uL Nucleated Red Blood Cells 0.2 % Sodium Level 139 136-145 mmol/L Potassium Level 4.0 3.5-5.1 mmol/L Chloride Level 101 98-107 mmol/L Carbon Dioxide Level 24 20-31 mmol/L Anion Gap 14 5-15 Blood Urea Nitrogen 79 #H 9-23 mg/dL Creatinine 6.79 H 0.550-1.02 mg/dL Glomerular Filtration Rate Calc 6 >90 mL/min BUN/Creatinine Ratio 11.6 10.0-20.0 Serum Glucose 138 H 74-106 mg/dL Calcium Level 8.6 L 8.7-10.4 mg/dL Phosphorus Level 2.9 2.4-5.1 mg/dL Magnesium Level 2.6 1.6-2.6 mg/dL Total Bilirubin 0.3 0.2-1.0 mg/dL Aspartate Amino Transferase (AST) 76 H 13-40 U/L Alanine Aminotransferase (ALT) 51 H 7-40 U/L Alkaline Phosphatase 148 H 46-116 U/L Total Protein 6.2 5.7-8.2 g/dL Albumin 3.3 3.2-4.8 g/dL Test 03/28/25 19:37 03/28/25 18:35 03/28/25 17:08 03/28/25 11:42 Range/Units Lactic Acid Level 0.9 0.4-2.0 mmol/L POC Glucose 109 H 106 70-106 mg/dl Test 03/28/25 07:40 03/28/25 07:13 03/28/25 07:00 03/27/25 22:15 Range/Units Influenza Type A Antigen Negative Negative Influenza Type B Antigen Negative Negative SARS-CoV-2 Antigen (Rapid) Positive NEGATIVE White Blood Count 8.7 # 4.4-10.8 10^3/uL Red Blood Count 2.78 L 4.0-5.20 10^6/uL Hemoglobin 8.9 #L 12.2-16.2 g/dL Hematocrit 26.3 #L 36.0-46.0 % Mean Corpuscular Volume 94.6 # 80.0-100.0 fL Mean Corpuscular Hemoglobin 32.0 28.0-32.0 pg Mean Corpuscular Hemoglobin Concent 33.9 32.0-36.0 g/dL Red Cell Distribution Width 17.1 H 11.8-14.3 % Platelet Count 139 L 140-450 10^3/uL Mean Platelet Volume 9.3 6.9-10.8 fL Neutrophils (%) (Auto) 37.0-80.0 % Lymphocytes (%) (Auto) 10.0-50.0 % Monocytes (%) (Auto) 0.0-12.0 % Basophils (%) (Auto) 0.0-2.0 % Neutrophils # (Auto) 1.6-8.6 10 ^3/uL Lymphocytes # (Auto) 0.4-5.4 10 ^3/uL Monocytes # (Auto) 0-1.3 10 ^3/uL Differential Total Cells Counted 100.0 100 Neutrophils % (Manual) 65 37.0-80.0 Band Neutrophils % (Manual) 3 Lymphocytes % (Manual) 18 10.0-50.0 Monocytes % (Manual) 12 0-12 Eosinophils % (Manual) 1 0-7 Basophils % (Manual) 0 0.0-2.0 Metamyelocytes % (manual) 1 Myelocytes % (Manual) 0 Promyelocytes % (Manual) 0 Blast Cells % (Manual) 0 Reactive Lymphocytes 0 Platelet Estimate Decreased Anisocytosis (manual) Slight Sodium Level 140 136-145 mmol/L Potassium Level 3.7 3.5-5.1 mmol/L Chloride Level 105 98-107 mmol/L Carbon Dioxide Level 22 20-31 mmol/L Anion Gap 13 5-15 Blood Urea Nitrogen 39 H 9-23 mg/dL Creatinine 5.78 H 0.550-1.02 mg/dL Glomerular Filtration Rate Calc 8 >90 mL/min BUN/Creatinine Ratio 6.7 L 10.0-20.0 Serum Glucose 110 H 74-106 mg/dL Calcium Level 9.0 8.7-10.4 mg/dL Total Bilirubin 0.4 0.2-1.0 mg/dL Aspartate Amino Transferase (AST) 76 H 13-40 U/L Alanine Aminotransferase (ALT) 46 H 7-40 U/L Alkaline Phosphatase 140 H 46-116 U/L Total Protein 6.3 5.7-8.2 g/dL Albumin 3.3 3.2-4.8 g/dL POC Glucose 108 H 133 H 70-106 mg/dl Test 03/27/25 18:11 03/27/25 18:09 03/27/25 14:08 03/27/25 12:50 Range/Units POC Glucose 206 H 70-106 mg/dl Erythrocyte Sedimentation Rate 66 H 0-20 mm/hr Lactic Acid Level 1.3 3.8 *H 0.4-2.0 mmol/L Tumor Marker Alpha Fetoprotein <1.8 0.0-9.2 ng/mL Hepatitis A IgM Antibody Negative Hepatitis A Antibody Total Positive H Negative Hepatitis B Surface Antigen Negative Negative Hepatitis B Surface Antibody Negative Negative Hepatitis B Core Total Antibody Negative Negative Hepatitis B Core IgM Antibody Negative Negative Hepatitis C Antibody Negative Negative Prothrombin Time 12.4 H 9.3-11.8 sec Prothrombin Time INR 1.19 H 0.9-1.15 Activated Partial Thromboplast Time 28.4 24.5-34.5 SEC Sodium Level 140 136-145 mmol/L Potassium Level 3.9 3.5-5.1 mmol/L Chloride Level 102 98-107 mmol/L Carbon Dioxide Level 29 20-31 mmol/L Anion Gap 9 5-15 Blood Urea Nitrogen 45 H 9-23 mg/dL Creatinine 4.93 H 0.550-1.02 mg/dL Glomerular Filtration Rate Calc 9 >90 mL/min BUN/Creatinine Ratio 9.1 L 10.0-20.0 Serum Glucose 217 H 74-106 mg/dL Calcium Level 8.9 8.7-10.4 mg/dL Magnesium Level 2.4 1.6-2.6 mg/dL Total Bilirubin 0.3 0.2-1.0 mg/dL Aspartate Amino Transferase (AST) 65 H 13-40 U/L Alanine Aminotransferase (ALT) 39 7-40 U/L Alkaline Phosphatase 158 H 46-116 U/L Lactate Dehydrogenase 247 H 120-246 U/L C-Reactive Protein High Sensitivity 2.85 H <1.0 mg/dL Total Protein 6.1 5.7-8.2 g/dL Albumin 3.2 3.2-4.8 g/dL Thyroid Stimulating Hormone (TSH) 0.72 0.55-4.78 uIU/mL Test 03/27/25 10:55 03/27/25 10:50 Range/Units White Blood Count 6.4 4.4-10.8 10^3/uL Red Blood Count 2.19 L 4.0-5.20 10^6/uL Hemoglobin 7.0 *L 12.2-16.2 g/dL Hematocrit 22.2 L 36.0-46.0 % Mean Corpuscular Volume 101.5 H 80.0-100.0 fL Mean Corpuscular Hemoglobin 31.9 28.0-32.0 pg Mean Corpuscular Hemoglobin Concent 31.4 L 32.0-36.0 g/dL Red Cell Distribution Width 17.5 H 11.8-14.3 % Platelet Count 133 L 140-450 10^3/uL Mean Platelet Volume 9.8 6.9-10.8 fL Neutrophils (%) (Auto) 72.7 37.0-80.0 % Lymphocytes (%) (Auto) 17.6 10.0-50.0 % Monocytes (%) (Auto) 7.9 0.0-12.0 % Eosinophils (%) (Auto) 0.8 0.0-7.0 % Basophils (%) (Auto) 1.0 0.0-2.0 % Neutrophils # (Auto) 4.6 1.6-8.6 10 ^3/uL Lymphocytes # (Auto) 1.1 0.4-5.4 10 ^3/uL Monocytes # (Auto) 0.5 0-1.3 10 ^3/uL Eosinophils # (Auto) 0 0-0.8 10 ^3/uL Basophils # (Auto) 0.1 0-0.2 10 ^3/uL Nucleated Red Blood Cells 0.7 % Platelet Estimate Decreased Macrocytosis Slight Stomatocytes Few Reticulocyte Count (auto) 4.24 H 0.5-1.5 % Sodium Level 140 136-145 mmol/L Potassium Level 4.3 3.5-5.1 mmol/L Chloride Level 98 98-107 mmol/L Carbon Dioxide Level 29 20-31 mmol/L Anion Gap 13 5-15 Blood Urea Nitrogen 46 H 9-23 mg/dL Creatinine 4.92 H 0.550-1.02 mg/dL Glomerular Filtration Rate Calc 9 >90 mL/min BUN/Creatinine Ratio 9.3 L 10.0-20.0 Serum Glucose 223 H 74-106 mg/dL Hemoglobin A1c 6.2 H <5.7 % A1C Lactic Acid Level 3.5 *H 0.4-2.0 mmol/L Calcium Level 8.9 8.7-10.4 mg/dL Iron Level 185 H 50-170 ug/dL Total Iron Binding Capacity 192 L 250-425 ug/dL Percent Iron Saturation 96.4 H 15-50 % Ferritin > 3300.0 H 10-291 ng/mL Troponin I High Sensitivity 78 *H </=34 ng/L B-Type Natriuretic Peptide 528.41 0-100 pg/mL Lipase 52 12-53 U/L Vitamin B12 Level 2247 H 211-911 pg/mL Vitamin D 25-Hydroxy 72.7 30.0-100 ng/mL Folic Acid 34.21 >5.38 ng/mL Stool Occult Blood Positive Negative Stool Occult Blood Sample #3 Negative Stool for White Cells None seen Assessment IMP: 1) ESRD on dialysis 2) COVID-19 infection 3) abdominal pain 4) anemia 5) hypertension REC: - we will plan for hemodialysis today - discussed with patient Plan discussed with: Patient MISHEL ALMANZAR MD Mar 29, 2025 16:44
[2025-03-29] MEDS: SERTRALINE HCL 50 MG TAB PO ONE (23:37)
[2025-03-30 01:00] VITALS: BP 134/56; PULSE 94; RESP 18; TEMP 97.9; O2SAT 100
[2025-03-30 05:00] VITALS: BP 121/60; PULSE 95; RESP 17; TEMP 98; O2SAT 98
[2025-03-30 06:14] LABS: Hematocrit 25.0 % (36.0-46.0); Hemoglobin 8.5 g/dL (12.2-16.2); Mean Corpuscular Hemoglobin 32.6 pg (28.0-32.0); Mean Corpuscular Volume 95.2 fL (80.0-100.0); Nucleated Red Blood Cells % 0.3 %
[2025-03-30 06:23] LABS: Anion Gap 12 (5-15); Carbon Dioxide 27 mmol/L (20-31); Chloride 102 mmol/L (98-107); Potassium 3.9 mmol/L (3.5-5.1); Sodium 141 mmol/L (136-145)
[2025-03-30 06:30] LABS: Magnesium 2.5 mg/dL (1.6-2.6)
[2025-03-30 06:42] LABS: BUN/Creatinine Ratio 8.0 (10.0-20.0); Blood Urea Nitrogen 38 mg/dL (9-23); Calcium 8.6 mg/dL (8.7-10.4); Glucose 118 mg/dL (74-106)
[2025-03-30 08:00] VITALS: PULSE 88
[2025-03-30] MEDS ORDERED: SUCR1SUS26 PO (08:57)
[2025-03-30] MEDS ORDERED: FER325T PO (08:57)
[2025-03-30] MEDS ORDERED: PANT40TA2 PO (08:57)
--- NOTE | 2025-03-30 08:59 | DVHDS2 ---
Discharge Summary Date of Admission Mar 27, 2025 at 14:02 Date of Discharge: Mar 30, 2025 Labs/Diagnostic Data: Laboratory Results Test 03/30/25 05:34 03/30/25 04:59 03/29/25 05:52 03/28/25 19:37 POC Glucose 136 mg/dl (70-106) White Blood Count 4.9 10^3/uL (4.4-10.8) Red Blood Count 2.62 10^6/uL (4.0-5.20) Hemoglobin 8.5 g/dL (12.2-16.2) Hematocrit 25.0 % (36.0-46.0) Mean Corpuscular Volume 95.2 fL (80.0-100.0) Mean Corpuscular Hemoglobin 32.6 pg (28.0-32.0) Mean Corpuscular Hemoglobin Concent 34.2 g/dL (32.0-36.0) Red Cell Distribution Width 16.8 % (11.8-14.3) Platelet Count 117 10^3/uL (140-450) Mean Platelet Volume 9.4 fL (6.9-10.8) Neutrophils (%) (Auto) 67.8 % (37.0-80.0) Lymphocytes (%) (Auto) 15.7 % (10.0-50.0) Monocytes (%) (Auto) 11.4 % (0.0-12.0) Eosinophils (%) (Auto) 3.9 % (0.0-7.0) Basophils (%) (Auto) 1.2 % (0.0-2.0) Neutrophils # (Auto) 3.4 10 ^3/uL (1.6-8.6) Lymphocytes # (Auto) 0.8 10 ^3/uL (0.4-5.4) Monocytes # (Auto) 0.6 10 ^3/uL (0-1.3) Eosinophils # (Auto) 0.2 10 ^3/uL (0-0.8) Basophils # (Auto) 0.1 10 ^3/uL (0-0.2) Nucleated Red Blood Cells 0.3 % Sodium Level 141 mmol/L (136-145) Potassium Level 3.9 mmol/L (3.5-5.1) Chloride Level 102 mmol/L (98-107) Carbon Dioxide Level 27 mmol/L (20-31) Anion Gap 12 (5-15) Blood Urea Nitrogen 38 mg/dL (9-23) Creatinine 4.77 mg/dL (0.550-1.02) Glomerular Filtration Rate Calc 10 mL/min (>90) BUN/Creatinine Ratio 8.0 (10.0-20.0) Serum Glucose 118 mg/dL (74-106) Calcium Level 8.6 mg/dL (8.7-10.4) Phosphorus Level 2.2 mg/dL (2.4-5.1) Magnesium Level 2.5 mg/dL (1.6-2.6) Total Bilirubin 0.3 mg/dL (0.2-1.0) Aspartate Amino Transferase (AST) 76 U/L (13-40) Alanine Aminotransferase (ALT) 51 U/L (7-40) Alkaline Phosphatase 148 U/L (46-116) Total Protein 6.2 g/dL (5.7-8.2) Albumin 3.3 g/dL (3.2-4.8) Lactic Acid Level 0.9 mmol/L (0.4-2.0) Test 03/28/25 18:35 03/28/25 07:40 03/28/25 07:13 03/27/25 18:09 Influenza Type A Antigen Negative (Negative) Influenza Type B Antigen Negative (Negative) SARS-CoV-2 Antigen (Rapid) Positive (NEGATIVE) Differential Total Cells Counted 100.0 (100) Neutrophils % (Manual) 65 (37.0-80.0) Band Neutrophils % (Manual) 3 Lymphocytes % (Manual) 18 (10.0-50.0) Monocytes % (Manual) 12 (0-12) Eosinophils % (Manual) 1 (0-7) Basophils % (Manual) 0 (0.0-2.0) Metamyelocytes % (manual) 1 Myelocytes % (Manual) 0 Promyelocytes % (Manual) 0 Blast Cells % (Manual) 0 Reactive Lymphocytes 0 Platelet Estimate Decreased Anisocytosis (manual) Slight Erythrocyte Sedimentation Rate 66 mm/hr (0-20) Tumor Marker Alpha Fetoprotein <1.8 ng/mL (0.0-9.2) Hepatitis A IgM Antibody Negative Hepatitis A Antibody Total Positive (Negative) Hepatitis B Surface Antigen Negative (Negative) Hepatitis B Surface Antibody Negative (Negative) Hepatitis B Core Total Antibody Negative (Negative) Hepatitis B Core IgM Antibody Negative (Negative) Hepatitis C Antibody Negative (Negative) Test 03/27/25 14:08 03/27/25 10:55 03/27/25 10:50 Prothrombin Time 12.4 sec (9.3-11.8) Prothrombin Time INR 1.19 (0.9-1.15) Activated Partial Thromboplast Time 28.4 SEC (24.5-34.5) Lactate Dehydrogenase 247 U/L (120-246) C-Reactive Protein High Sensitivity 2.85 mg/dL (<1.0) Thyroid Stimulating Hormone (TSH) 0.72 uIU/mL (0.55-4.78) Macrocytosis Slight Stomatocytes Few Reticulocyte Count (auto) 4.24 % (0.5-1.5) Hemoglobin A1c 6.2 % A1C (<5.7) Iron Level 185 ug/dL (50-170) Total Iron Binding Capacity 192 ug/dL (250-425) Percent Iron Saturation 96.4 % (15-50) Ferritin > 3300.0 ng/mL (10-291) Troponin I High Sensitivity 78 ng/L (</=34) B-Type Natriuretic Peptide 528.41 pg/mL (0-100) Lipase 52 U/L (12-53) Vitamin B12 Level 2247 pg/mL (211-911) Vitamin D 25-Hydroxy 72.7 ng/mL (30.0-100) Folic Acid 34.21 ng/mL (>5.38) Stool Occult Blood Positive (Negative) Stool Occult Blood Sample #3 (Negative) Stool for White Cells None seen Other Laboratory Tests 03/30/25 04:59 Brief Hx & Hospital Course: 59 F with ESRD on HD MWF, R PLEF s/p thora in OSH, HFrEF 45%, HTN, obesity, esophagitis admitted for diarrhea for 1 week. On admission found to be tachycardic hypotensive, started on abx, pressors, fluids, bcx collected. also had black tarry stool, seen by GI. later found to have COVID 19 03/28 uncomfortable, abdominal pain, still having diarrhea, on o2 3LPM. tachycardic 03/29 seen today, improved, baseline o2 rec, breathing comfortably with a mask, HD today. bp stable 03/30 on and off o2, back to baseline, diarrhea resolved, abdominal pain improved. stable to dc home. no cvovid meds iso ESRD and gi issue, also gi planb to scope outpatient. dc clinic. and pot is asked to hold asa. Condition at Discharge: Stable Final Diagnosis/Problems List abdominal pain likely infectious gastroenteritis COVID 19 PNA acute on chronic hypoxic RF on home o2 anemia blood loss LGIB erosive esophagitis HFrEF 45% chronic systolic HF hemorrhagic vs septic shock ESRD on HD cirrhosis R PLEF s/p thora lactic acidosis type 2 DE transaminitis HTN HLD hyperthyroidism obesity Discharge Disposition: Home Discharge Instruct/Medications Diet: See Comment Diet comment: full liq adv as tolerated Activity: No Restrictions, As Tolerated Scheduled Amlodipine Besylate (Amlodipine Besylate), 1 TAB PO DAILY, (Reported) Atorvastatin Calcium (Atorvastatin Calcium), 1 TAB PO DAILY, (Reported) Calcium Carbonate-Cholecalcife (Oysco 500+D 500-5 mg-Mcg), 1 TAB PO DAILY, (Reported) Clonidine Hydrochloride (Clonidine Hcl), 1 TAB PO BID, (Reported) Dorzolamide-Timolol (Dorzolamide Hcl/Timolol M), 1 DROP EACHEYE BID, (Reported) Ferrous Sulfate (Ferrous Sulfate), 325 MG PO DAILY Ipratropium [place] Hfa (Atrovent Hfa), 1 PUFF INH QID, (Reported) Levothyroxine Sodium (Levothyroxine Sodium), 1 TAB PO QAM, (Reported) Losartan Potassium (Losartan Potassium), 1 TAB PO DAILY, (Reported) Pantoprazole Sodium Sesquihydr (Pantoprazole Sodium), 1 TAB PO BID, (Reported) Pantoprazole Sodium Sesquihydr (Protonix), 40 MG PO DAILY Sertraline Hcl (Sertraline Hcl), 1 TAB PO DAILY, (Reported) Sucralfate (Carafate Susp), 10 ML PO QID Discontinued Medications Amlodipine Besylate (Amlodipine Besylate), 2 TAB PO DAILY, (Reported) Discontinued Reason: Prescription changed Aspirin (Aspirin), 81 MG PO DAILY, (Reported) Doxycycline Monohydrate (Doxycycline Monohydrate), 1 CAP PO BID Ferrous Sulfate (Ferosul), 1 TAB PO BID, (Reported) Levofloxacin (Levaquin), 500 MG PO DAILY Metronidazole (Flagyl), 500 MG PO TID Discharge Statement: "Patient was advised to return to the ER or call 911 if any headaches, dizziness, shortness of breath, chest pain, abdominal pain, bleeding, fevers, or worsening of medical condition. Patient was counseled about treatment plan, medications, possible side effects, patientverbalized understanding. All questions were answered to the best of my ability. This discharge took greater then 30 minutes in planning, reviewing documentation, counseling the patient, and discussing with other team members." ASSESSMENT ASSESSMENT Assessment ESRD on HD COVID PNA COVID gastroenteritis GIB resolving Date of Service: Mar 30, 2025 Billing Provider: NATHALY QUINTANA MD Common Visit Codes: 01509-[id number] DISCH DAY >30min NATHALY QUINTANA MD Mar 30, 2025 08:59
[2025-03-30 09:00] VITALS: BP 125/62; PULSE 97; RESP 20; TEMP 98.6; O2SAT 99
[2025-03-30 09:18] VITALS: BP 141/58; TEMP 37
[2025-03-30] MEDS ORDERED: SERTRALINE HCL 50 MG TAB PO SCH (22:00)
== END 2025-03-30 09:40 | disposition home or self-care (01) | DRG 391 ==
LOC: EDBD 09:46 → ER 09:46 → OVERFLOW 14:02 → TELE-EAST 03-28 21:19
PROVIDERS: ADMIT Student in an Organized Health Care Education/Training Program; ATTEND Student in an Organized Health Care Education/Training Program
PROC: 30233N1 Transfusion of Nonautologous Red Blood Cells into Peripheral Vein, Percutaneous Approach (ICD-10-PCS; principal; 2025-03-27)
DX: A08.39 Other viral enteritis (principal); I21.A1 Myocardial infarction type 2; U07.1 COVID-19; K22.11 Ulcer of esophagus with bleeding; J12.82 Pneumonia due to coronavirus disease 2019; N18.6 End stage renal disease; J96.21 Acute and chronic respiratory failure with hypoxia; I13.2 Hypertensive heart and chronic kidney disease with heart failure and with stage 5 chronic kidney disease, or end stage renal disease; E87.20 Acidosis, unspecified; N17.9 Acute kidney failure, unspecified; Z99.2 Dependence on renal dialysis; E11.22 Type 2 diabetes mellitus with diabetic chronic kidney disease; K74.60 Unspecified cirrhosis of liver; E66.9 Obesity, unspecified; K27.9 Peptic ulcer, site unspecified, unspecified as acute or chronic, without hemorrhage or perforation; D50.0 Iron deficiency anemia secondary to blood loss (chronic); E05.90 Thyrotoxicosis, unspecified without thyrotoxic crisis or storm; I50.22 Chronic systolic (congestive) heart failure; Z68.27 Body mass index [BMI] 27.0-27.9, adult; E78.5 Hyperlipidemia, unspecified; Z78.9 Other specified health status; Z82.49 Family history of ischemic heart disease and other diseases of the circulatory system; Z83.3 Family history of diabetes mellitus; Z87.442 Personal history of urinary calculi; Z87.891 Personal history of nicotine dependence; Z90.49 Acquired absence of other specified parts of digestive tract; Z98.51 Tubal ligation status
CPT/HCPCS: 36415; 36430; 71045; 74176; 76604; 76705; 80048; 80053; 80074; 82105; 82270; 82306; 82607; 82728; 82746; 82962; 83036; 83540; 83550; 83605; 83615; 83690; 83735; 83880; 84100; 84443; 84484; 85007; 85025; 85027; 85045; 85048; 85610; 85652; 85730; 86038; 86141; 86704; 86706; 86708; 86803; 86850; 86900; 86901; 86920; 87045; 87081; 87340; 87426; 87427; 87493; 87804; 90935; 93005; 99291; G0378; J1815; J2405; J2470; J3490